=== PATIENT | female | born 1960 | race Two or more races ===

== ENCOUNTER → 2020-05-03 19:53 | Outpatient (REF) | payer OTHER, SELFPAY | LOC: HO.SL 19:53 | PROVIDERS: PCP Internal Medicine; Visit Provider Internal Medicine | DX: G47.33 Obstructive sleep apnea (adult) (pediatric) (principal) | CPT/HCPCS: 95811 ==

== ENCOUNTER → 2020-05-08 08:21 | Outpatient (REF) | payer OTHER, SELFPAY ==
--- NOTE | 2020-05-08 | NM_ITS ---
Exercise Myocardial perfusion study Indication: Calcification risk factors to evaluate for myocardial ischemia Technique: The patient was brought in for an exercise perfusion study on 05/08/2020. Patient performed exercise as per [facility] protocol and was injected 25 mCi of sestamibi was given intravenously one target HR was achieved. Images were obtained using the SPECT gamma camera interlaced with the gating device. Images were obtained in supine position. Resting perfusion study was performed on 05/11/2020. Patient was administered 25 mCi of sestamibi intravenously at rest. Images were then obtained in supine position. Images obtained with and without CT attenuation. Total DLP 73 MGY-CM. Images were processed with the software and compared side to side in short axis, horizontal long axis and vertical long axis views. Findings: The stress perfusion study showed non attenuated images show minimally reduced uptake in the apex of the LV myocardium. Attenuation corrected images show mildly reduced uptake in the apex of the LV myocardium. The gated study shows normal LV systolic function with calculated LVEF of 74%. LV cavity is normal in size. The gated study shows normal systolic wall thickening and contraction of all segments. There is no transient ischemic dilation. Resting study shows no change in perfusion study to stress perfusion study. Gating at rest reveals normal systolic wall motion with ejection fraction at 66%. The findings are consistent with normal myocardial perfusion. NM/NM ronan perf SPECT rest & str Impression: 1. Normal myocardial perfusion 2. Gated LVEF is 66% 3. Transient ischemic dilatation not present Stress EKG is negative for ischemia
--- NOTE | 2020-05-08 08:00 | CA_ITS ---
Acquisition Time: 2020-05-08 08:32:30 Total Exercise Time: 00:07:16 Test Indications: PALPITATIONS Medications: SEE CHART Protocol: RAUL Max HR: 173 BPM 108% of Pred: 159 BPM Max BP: 162/092 mmHG Max Work Load: 8.9 METS Exercise nuclear stress test using Raul protocol, total of 7 min 16 sec. METS. 8.9. Tolerated well, denies any anginal sx. EKG with occasional PVC's in recovery no ischemic changes seen. Nuclear images to follow. Normotensive response to exercise. Test reviewed with Dr. Martinez Referred By: Mikael Campbell Overread By: Smita Trinidad
== END ==
LOC: HO.CARD 08:21
PROVIDERS: Visit Provider Internal Medicine Cardiovascular Disease
DX: R00.2 Palpitations (principal)
CPT/HCPCS: 78452; 93017; A9500

== ENCOUNTER 2020-05-20 10:58 | Outpatient (REF) | payer OTHER, SELFPAY ==
--- NOTE | 2020-05-20 11:02 | MM_ITS ---
EXAMINATION: MM SCREENING DIGITAL BREAST TOMOSYNTHESIS, BILATERAL CLINICAL INFORMATION: Screening. Asymptomatic. The lifetime risk of breast cancer based on the Tyrer-Cuzick Model is 6%. COMPARISON: Mammography: 05/08/2018, outside exam 01/17/2008 ([facility]). TECHNIQUE: Digital breast tomosynthesis is performed in both the craniocaudal and mediolateral oblique views along with computer-aided detection (CAD). Synthesized 2D images are generated from the tomosynthesis. FINDINGS: There are scattered areas of fibroglandular density (ACR BI-RADS breast composition Category b). There are no significant masses, abnormal calcifications, or other abnormalities. The axilla and skin contours are unremarkable. MM/MM tomosynthesis screening BI IMPRESSION: No mammographic evidence of malignancy. ASSESSMENT: BI-RADS 1: Negative RECOMMENDATION: Routine annual mammography screening. This patient's information was entered into a reminder system with a target due date for their next mammogram.
== END 2020-05-20 10:59 | disposition home or self-care (01) ==
LOC: HO.MAMMO 10:58
PROVIDERS: PCP Internal Medicine; Visit Provider Internal Medicine
DX: Z12.31 Encounter for screening mammogram for malignant neoplasm of breast (principal)
CPT/HCPCS: 77063; 77067

== ENCOUNTER → 2020-06-10 08:57 | Outpatient (BNVA) | payer OTHER, SELFPAY | PROVIDERS: PCP Internal Medicine; Referring Provider Internal Medicine; Visit Provider Surgery | DX: K43.2 Incisional hernia without obstruction or gangrene (principal) | CPT/HCPCS: 99202 ==

== ENCOUNTER 2020-07-21 08:50 | Outpatient (REF) | payer OTHER, SELFPAY ==
--- NOTE | 2020-07-21 08:52 | CT_ITS ---
EXAMINATION: CT ABDOMEN AND PELVIS WITHOUT CONTRAST CLINICAL INFORMATION: Incisional hernia without obstruction or gangrene. COMPARISON: None TECHNIQUE: Multidetector volumetric imaging was performed from the superior aspect of the liver through the pubic symphysis. Sagittal and coronal reformatted images were obtained on the technologist's workstation. This CT examination was performed using dose optimization techniques as appropriate, variously including the following: *Automated exposure control *Adjustment of mA and/or kV according to patient size (this includes techniques or standardized protocols for targeted exams where dose is matched to indication/reason for exam; i.e. extremities or head) *Use of iterative reconstruction technique DLP: 378 mGy-cm FINDINGS: LUNG BASES: There is a punctate 2 mm nodule right lower lobe axial image 10/14. LIVER, GALLBLADDER, AND BILIARY TREE: The liver is normal in size, shape, and attenuation. No focal hepatic lesion or biliary ductal dilatation is present. The gallbladder is unremarkable with no evidence of radiopaque gallstones, gallbladder wall thickening, or obvious pericholecystic inflammatory changes. PANCREAS: Unremarkable. SPLEEN: Unremarkable. ADRENAL GLANDS: Unremarkable. KIDNEYS AND URETERS: The kidneys are normal in size, shape, and attenuation. There is a 7 mm radiopaque calculi upper pole calyx left kidney. No additional radiopaque calculi seen. There is no caliectasis or hydronephrosis. BLADDER: Unremarkable. GASTROINTESTINAL TRACT: There is scattered stool and gas seen throughout the colon without any significant distention. The small bowel loops are normal caliber. There is no free air or free fluid. No inflammatory process seen in the abdomen or pelvis. There are surgical alessandro in the left pelvis from previous intervention. ABDOMINAL WALL: Thickened soft tissue is seen within the umbilicus without any visible hernia. No fat stranding seen. LYMPH NODES: Normal. VASCULAR: Unremarkable. PELVIC VISCERA: No free air or free fluid seen. The uterus is not visualized likely surgically removed or atrophic. A few phleboliths are seen in the right pelvis. OSSEOUS STRUCTURES: Mild degenerative changes L4-L5 and L5-S1 disc levels. No lytic or sclerotic process. CT/CT abdomen pelvis wo con IMPRESSION: Nonobstructive upper pole left renal calculi. No hydronephrosis seen. Nonspecific mild thickening of the umbilical soft tissues but no evidence of abdominal wall hernia. Mild constipation.
== END 2020-07-21 08:51 | disposition home or self-care (01) ==
LOC: HO.CT 08:50
PROVIDERS: Visit Provider Surgery
DX: K43.2 Incisional hernia without obstruction or gangrene (principal)
CPT/HCPCS: 74176

== ENCOUNTER → 2020-07-28 10:14 | Outpatient (BNVA) | payer OTHER, SELFPAY | PROVIDERS: PCP Internal Medicine; Visit Provider Surgery | DX: K43.2 Incisional hernia without obstruction or gangrene (principal) | CPT/HCPCS: 99212 ==

== ENCOUNTER → 2021-11-12 09:32 | Outpatient (BNVA) | payer OTHER, SELFPAY | PROVIDERS: PCP Internal Medicine; Referring Provider Internal Medicine; Visit Provider Surgery | DX: K43.2 Incisional hernia without obstruction or gangrene (principal); K57.92 Diverticulitis of intestine, part unspecified, without perforation or abscess without bleeding | CPT/HCPCS: 99212 ==

== ENCOUNTER 2021-12-22 07:01 | Outpatient (REF) | payer OTHER, SELFPAY ==
--- NOTE | ~2021-12-22 | CT_ITS ---
EXAMINATION: CT ABDOMEN AND PELVIS WITHOUT CONTRAST CLINICAL INFORMATION: Incisional hernia COMPARISON: Previous CT of the abdomen and pelvis July 2020 TECHNIQUE: Multidetector volumetric imaging was performed from the superior aspect of the liver through the pubic symphysis. Sagittal and coronal reformatted images were obtained on the technologist's workstation. This CT examination was performed using dose optimization techniques as appropriate, variously including the following: *Automated exposure control *Adjustment of mA and/or kV according to patient size (this includes techniques or standardized protocols for targeted exams where dose is matched to indication/reason for exam; i.e. extremities or head) *Use of iterative reconstruction technique DLP: 372 mGy-cm FINDINGS: LUNG BASES: The visualized lung bases are unremarkable. LIVER, GALLBLADDER, AND BILIARY TREE: The liver is normal in size, shape, and attenuation. No focal hepatic lesion or biliary ductal dilatation is present. The gallbladder is unremarkable with no evidence of radiopaque gallstones, gallbladder wall thickening, or obvious pericholecystic inflammatory changes. PANCREAS: Unremarkable. SPLEEN: Unremarkable. ADRENAL GLANDS: Unremarkable. KIDNEYS AND URETERS: There is mild fullness of the right renal collecting system. This is similar to previous exam. The kidneys are otherwise normal. The previously identified left upper pole renal stone July 2020 exam is no longer seen. BLADDER: Unremarkable. GASTROINTESTINAL TRACT: There is stool throughout the colon suggestive of constipation. Small and large bowel is otherwise unremarkable. The appendix is not seen. The stomach is unremarkable. ABDOMINAL WALL: No significant hernia is appreciated. LYMPH NODES: Normal. VASCULAR: Mild atherosclerotic disease. PELVIC VISCERA: Uterus appears to have been removed. There are surgical clips in the left lateral pelvis. No pelvic mass. OSSEOUS STRUCTURES: Unremarkable. CT/CT abdomen pelvis wo con IMPRESSION: No hernia seen. Constipation. Fleischner guidelines were followed.
[2021-12-22] MEDS: Barium Sulfate Oral (Mocha) 450 ML ORAL.SUSP 900 ML PO (09:49)
== END 2021-12-22 07:02 | disposition home or self-care (01) ==
LOC: HO.CT 07:01
PROVIDERS: PCP Internal Medicine; Visit Provider Surgery
DX: K43.2 Incisional hernia without obstruction or gangrene (principal); K57.92 Diverticulitis of intestine, part unspecified, without perforation or abscess without bleeding
CPT/HCPCS: 74176

== ENCOUNTER → 2021-12-28 11:11 | Outpatient (BNVA) | payer OTHER, SELFPAY | PROVIDERS: PCP Internal Medicine; Visit Provider Surgery | DX: K43.2 Incisional hernia without obstruction or gangrene (principal); K57.92 Diverticulitis of intestine, part unspecified, without perforation or abscess without bleeding | CPT/HCPCS: 99212 ==

== ENCOUNTER 2022-06-07 08:17 | Outpatient (REF) | payer OTHER, SELFPAY ==
--- NOTE | ~2022-06-07 | MM_ITS ---
EXAMINATION: MM SCREENING DIGITAL BREAST TOMOSYNTHESIS, BILATERAL CLINICAL INFORMATION: Screening. Asymptomatic. The lifetime risk of breast cancer based on the Tyrer-Cuzick Model is 5%. COMPARISON: Mammography: 05/20/2020, 05/08/2018; outside exam 01/17/2008 ([facility]) TECHNIQUE: Digital breast tomosynthesis is performed in both the craniocaudal and mediolateral oblique views along with computer-aided detection (CAD). Synthesized 2D images are generated from the tomosynthesis. FINDINGS: There are scattered areas of fibroglandular density (ACR BI-RADS breast composition Category b). There are no significant masses, abnormal calcifications, or other abnormalities. Parenchymal pattern is similar to prior studies. There is no developing density or architectural abnormality. The axilla and skin contours are unremarkable. No significant changes. MM/MM tomosynthesis screening BI IMPRESSION: No mammographic evidence of malignancy. ASSESSMENT: BI-RADS 1: Negative RECOMMENDATION: Routine annual mammography screening. This patient's information was entered into a reminder system with a target due date for their next mammogram.
== END 2022-06-07 08:18 | disposition home or self-care (01) ==
LOC: HO.MAMMO 08:17
PROVIDERS: PCP Internal Medicine; Visit Provider Internal Medicine
DX: Z12.31 Encounter for screening mammogram for malignant neoplasm of breast (principal)
CPT/HCPCS: 77063; 77067

== ENCOUNTER 2023-04-06 09:26 | Outpatient (REF) | payer OTHER, SELFPAY ==
[2023-04-06 11:54] LABS: Cholesterol 291 mg/dL (<200); HDL Cholesterol 59 mg/dL (>40); LDL Cholesterol Calculated 189 mg/dL (<100); Triglycerides 219 mg/dL (<150)
[2023-04-06 11:57] LABS: Alanine Aminotransferase 11 U/L (0-31); Albumin Level 4.4 g/dL (3.5-5.0); Alkaline Phosphatase 84 U/L (39-117); Anion Gap 16 (12-20); Aspartate Amino Transferase 12 U/L (5-31); Bilirubin Total 0.7 mg/dL (0.0-1.0); Blood Urea Nitrogen 17 mg/dL (9-16); Calcium 10.5 mg/dL (8.4-10.2); Carbon Dioxide 25 mmol/L (22-29); Chloride 103 mmol/L (96-108); Estimated Glomerular Filt Rate > 60; Glucose Random 276 mg/dL (60-115); Potassium 4.2 mmol/L (3.3-5.1); Sodium 140 mmol/L (135-145)
[2023-04-06 12:14] LABS: Creatinine Urine 76.69 mg/dL; Microalbum/Creatinine Ratio Ur 20.8 ug/mg cr (<30); TSH reflex Free T4 0.76 uIU/mL (0.32-4.0); Vitamin D 25-OH Total 53.7 ng/mL (>30)
[2023-04-06 13:47] LABS: Reflex LDLD? No
== END 2023-04-06 09:27 | disposition home or self-care (01) ==
LOC: HO.HHCL 09:26
PROVIDERS: Visit Provider Family Medicine
DX: R30.9 Painful micturition, unspecified (principal); E11.9 Type 2 diabetes mellitus without complications; R25.1 Tremor, unspecified; I10 Essential (primary) hypertension; E55.9 Vitamin D deficiency, unspecified
CPT/HCPCS: 36415; 80053; 80061; 82043; 82306; 82570; 84443; 87086; 87088; 87186

== ENCOUNTER 2023-06-07 07:54 | Outpatient (REF) | payer OTHER, SELFPAY ==
--- NOTE | ~2023-06-07 | CT_ITS ---
EXAMINATION: CT ABDOMEN AND PELVIS WITHOUT CONTRAST CLINICAL INFORMATION: Gross hematuria. COMPARISON: CT abdomen and pelvis 12/22/2021. TECHNIQUE: Multidetector volumetric imaging was performed from the superior aspect of the liver through the pubic symphysis. Sagittal and coronal reformatted images were obtained on the technologist's workstation. This CT examination was performed using dose optimization techniques as appropriate, variously including the following: *Automated exposure control *Adjustment of mA and/or kV according to patient size (this includes techniques or standardized protocols for targeted exams where dose is matched to indication/reason for exam; i.e. extremities or head) *Use of iterative reconstruction technique DLP: 330 mGy-cm FINDINGS: LUNG BASES: Mosaic attenuation at the lung bases suggesting reactive airways disease. LAD coronary calcium. LIVER, GALLBLADDER, AND BILIARY TREE: The liver is normal in size, shape, and attenuation. No focal hepatic lesion or biliary ductal dilatation is present. The gallbladder is unremarkable with no evidence of radiopaque gallstones, gallbladder wall thickening, or obvious pericholecystic inflammatory changes. PANCREAS: No discrete mass or ductal dilatation. SPLEEN: Unremarkable. ADRENAL GLANDS: Unremarkable. KIDNEYS AND URETERS: The kidneys are normal in size, shape, and attenuation. No hydronephrosis, hydroureter, or calculi seen. No perinephric stranding. BLADDER: Unremarkable. GASTROINTESTINAL TRACT: Small hiatal hernia. Small bowel and large bowel are normal in caliber the appendix is not discretely seen ABDOMINAL WALL: No significant hernia is appreciated. LYMPH NODES: No adenopathy. VASCULAR: Mild aortoiliac atherosclerosis. No aneurysm. PELVIC VISCERA: Unremarkable. OSSEOUS STRUCTURES: Degenerative changes in the spine. CT/CT abdomen pelvis wo IV con IMPRESSION: No explanation for hematuria. No nephrolithiasis or hydroureteronephrosis. Fleischner guidelines were followed.
== END 2023-06-07 07:55 | disposition home or self-care (01) ==
LOC: HO.CT 07:54
PROVIDERS: PCP Internal Medicine; Visit Provider Family Medicine
DX: R31.0 Gross hematuria (principal)
CPT/HCPCS: 74176

== ENCOUNTER 2023-06-13 08:07 | Outpatient (REF) | payer OTHER, SELFPAY | END 2023-06-13 08:08 | disposition home or self-care (01) | LOC: HO.MAMMO 08:07 | PROVIDERS: PCP Internal Medicine; Visit Provider Internal Medicine | DX: Z12.31 Encounter for screening mammogram for malignant neoplasm of breast (principal) | CPT/HCPCS: 77063; 77067 ==

== ENCOUNTER → 2023-06-13 08:15 | Outpatient (BNV) | payer OTHER, SELFPAY | PROVIDERS: PCP Internal Medicine; Visit Provider Radiology Diagnostic Radiology | DX: Z12.31 Encounter for screening mammogram for malignant neoplasm of breast (principal) | CPT/HCPCS: 77063; 77067 ==

== ENCOUNTER 2023-09-12 13:40 | Outpatient (REF) | payer OTHER, SELFPAY ==
--- NOTE | ~2023-09-12 | US_ITS ---
EXAMINATION: US THYROID CLINICAL INFORMATION: Follow-up left thyroid nodule, left lymphadenopathy. COMPARISON: None available. TECHNIQUE: Linear transducer grayscale and color Doppler examination with attention to the region of the thyroid. FINDINGS: SIZE: Measurements of the thyroid lobes and nodules are given in sagittal, anteroposterior and transverse dimensions respectively. Right Thyroid Lobe: 4.4 x 2.4 x 1.9 cm, volume 10.4 mL. Parenchyma: The gland echotexture is homogeneous. Thyroid vascularity is normal. Left Thyroid Lobe: 4.9 x 1.4 x 1.3 cm, volume 4.9 mL. Parenchyma: The gland echotexture is homogeneous. Thyroid vascularity is normal. Isthmus: 0.4 cm in maximum AP dimension. Estimated total number of nodules greater than or equal to 1 cm: 0. Clinic Cma nodules are described as follows: 1. Location: Left superior. Size: 0.6 x 0.4 x 0.5 cm, volume 0.06 mL. Nodule characteristics: Composition: Cystic(0). ACR TI-RADS total points: 0 ACR TI-RADS category: 1 NODES: In the right cervical region, a 1.5 x 0.6 x 1.1 cm reniform lymph node is seen, with normal architectural features. There are further shotty, nonpathologically enlarged bilateral cervical lymph nodes. US/US thyroid IMPRESSION: 1. A small superior left thyroid lobe nodule is seen. No specific imaging follow-up is recommended. 2. There is a mild asymmetric goiter, right lobe greater than left. 3. A borderline enlarged right cervical lymph node is seen, as detailed. This is nonspecific and should be managed on a clinical basis. There are further shotty, nonpathologically enlarged bilateral cervical lymph nodes. ACR TI-RADS RECOMMENDATION REFERENCE: Ultrasound-guided fine-needle aspiration, followup ultrasound, no further follow up. * TR1 (0 point) and TR2 (2 points): No FNA or follow up. * TR3 (3 points): FNA if more than or equal to 2.5 cm in maximum dimension, followup ultrasound in 1, 3 and 5 years if 1.5 to 2.4 cm in maximum dimension. * TR4 (4-6 points): FNA if more than or equal to 1.5 cm in maximum dimension, followup ultrasound in 1, 2, 3 and 5 years if 1 to 1.4 cm in maximum dimension. * TR5 (more than or equal to 7 points): FNA if more than or equal to 1 cm in maximum dimension, followup ultrasound every year for 5 years if 0.5 to 0.9 cm in maximum dimension. * TR3, TR4 or TR5 nodules that are below the size threshold for followup receive no follow up.
== END 2023-09-12 13:41 | disposition home or self-care (01) ==
LOC: HO.US 13:40
PROVIDERS: PCP Internal Medicine; Visit Provider Internal Medicine
DX: E04.1 Nontoxic single thyroid nodule (principal)
CPT/HCPCS: 76536

== ENCOUNTER 2023-12-22 08:42 | Outpatient (REF) | payer OTHER, SELFPAY ==
[2023-12-24 10:05] LABS: Triiodothyronine T3 Free 3.1 pg/mL (2.3-4.2); Triiodothyronine T3 Total 96 ng/dL (76-181)
[2023-12-25 18:39] LABS: Thyroglobulin Antibodies <1 IU/mL (< or = 1)
[2023-12-29 11:32] LABS: T4 Thyroxine 7.1 ug/dL (4.5-12.0)
== END 2023-12-22 08:43 | disposition home or self-care (01) ==
LOC: HO.HHCL 08:42
PROVIDERS: Visit Provider Internal Medicine
DX: E04.1 Nontoxic single thyroid nodule (principal); N30.01 Acute cystitis with hematuria
CPT/HCPCS: 36415; 84436; 84439; 84480; 84481; 86800; 87086

== ENCOUNTER 2024-01-08 08:07 | Outpatient (REF) | payer OTHER, SELFPAY ==
[2024-01-08 12:22] LABS: Cholesterol 212 mg/dL (<200); HDL Cholesterol 52 mg/dL (>40); LDL Cholesterol Calculated 139 mg/dL (<100); Triglycerides 107 mg/dL (<150)
[2024-01-08 12:45] LABS: Free T4 (Free Thyroxine) 0.89 ng/dL (0.71-1.85)
[2024-01-08 13:32] LABS: T4 Thyroxine 6.8 ug/dL (4.5-12.0)
[2024-01-08 14:09] LABS: Reflex LDLD? No
[2024-01-09 22:37] LABS: Thyroid Peroxidase Antibodies <1 IU/mL (<9)
== END 2024-01-08 08:08 | disposition home or self-care (01) ==
LOC: HO.HHCL 08:07
PROVIDERS: Visit Provider Internal Medicine
DX: E04.1 Nontoxic single thyroid nodule (principal); E11.9 Type 2 diabetes mellitus without complications; I10 Essential (primary) hypertension
CPT/HCPCS: 36415; 80061; 84436; 84439; 86376

== ENCOUNTER 2024-08-29 09:09 | Outpatient (REF) | payer OTHER, SELFPAY ==
--- OUTSIDE RECORDS SUMMARY | 2024-08-29 09:49 | XMS_ITS | Encounter Summary ---
Author Organization [employer] Address [address] [place] [address] [address] [place] [address] Care Team Providers Care Dcs Engineer Name Role Phone Elizabeth Alexis MD Primary Care Provider + Reason for Visit * Reason Comments Med Refill Encounter Details Date Type Department Care Team ([facility] Contact Info) Description 01/01/2023 Refill [facility] [address] [place] [address] [phone] Eliazbeth Alexis MD [address] [place], [place] [phone] Type 2 diabetes mellitus without complication, with long-term current use of insulin ([facility]) Social History Tobacco Use Types Packs/Day Years Used Date Smoking Tobacco: Never Passive Smoke Exposure: Never Smokeless Tobacco: Never Alcohol Use Standard Drinks/Week Comments Yes 0 (1 standard drink = 0.6 oz pur e alcohol) casual Depression Answer Date Recorded Patient Health Questionnaire-2 Score 0 09/29/2022 Comments No Sex and Gender Information Value Date Recorded Sex Assigned at Female 05/09/2022 10:24 AM EDT Legal Sex Female 10:24 AM EDT Gender Identity Female 05/09/2022 10:24 AM EDT Sexual Orientation Straight 05/09/2022 10 :24 AM EDT documented as of this encounter Plan of Treatment Upcoming Encounters Date Type Department Care Team ([facility] Contact Info) Description 10/24/2024 9:00 AM EDT Office Visit [facility] [address] [place] [phone] Elizabeth Alexis MD [address] [place], [place] [phone] documented as of this encounter Visit Diagnoses Diagnosis Type 2 diabetes mellitus without complication, with long-term current use of insulin ([facility]) documented in this encounter Care Teams Dcs Engineer Relationship Specialty Start Date End Date Elizabeth Alexis MD [address] [place] [address] PCP - General Family Medicine 04/26/16 documented as of this encounter
--- OUTSIDE RECORDS SUMMARY | 2024-08-29 09:49 | XMS_ITS | Clinical Summary ---
Author Organization [facility] Address [address] [place] [address] Care Team Providers Care Digital Media Strategist Name Role Phone Unavailable Primary Care Provider Unavailabl e Source Comments PLEASE NOTE, if this patient is a minor, it may be UNLAWFUL to discuss sensitive information that is contained in these records (such as FAMILY PLANNING, MENTAL HEALTH or SUBSTANCE ABUSE) with the minor patient's parent or other person without the patient's specific authorization.[facility] Social History Tobacco Use Types Packs/Day Years Used Date Smoking Tobacco: Never Assessed Social Connections Answer Date Recorded Connectedness 0 03/22/2024 Financial Resource Strain Answer Date R ecorded Financial Resource Strain 0 2021 Stress Answer Date Recorded Stress 0 02/01/2022 Physical Activity Answer Date Recorded Physical Activity 0 02/01/2022 Food Insecurity Answer Date Recorded Food 0 04/04/2024 Transportation Needs Answer Date Record ed Transportation 0 02/01/2022 Housing Stability Answer Date Recorded Housing 0 02/01/2022 Safety and Environment Answer Date Rock rded Safety 0 02/01/2022 Utilities Answer Date Recorded Utilities 0 02/01/2022 Employment Answer Date Recorded Stress 0 03/22/2024 Comments Unknown Sex and Gender Information Value Date Recorded Sex Assigned at Not on file Legal Sex Female 10:11 AM PDT Gender Identity Not on file Sexual Orientation Not on file Plan of Treatment Health Maintenance Due Date Last Done Comments Diabetes Screening 1959 Hepatitis C Screening 1959 Lipid Screening 1959 Tobacco Screening 1959 HIV Screening 1974 Hypertension Screening (#1) 1977 Medicare Annual Wellness Visit 1977 Breast Cancer Screening (Mammogram) 1999 CT Colonography 02/05/2004 Colonoscopy 02/05/2004 Colorectal Cancer Screening 02/05/2004 FIT/gFOBT 02/05/2004 Fecal DNA 02/05/2004 Flexible Sigmoidoscopy 02/05/2004 Imm-Pneumococcal 65+ (1 of 1 - PCV) 2009 Imm-Zoster, Recombinant (1 of 2) 2009 Imm-DTaP/Tdap/Td (2 - Td or Tdap) 03/19/2018 008 Bone Density Screening 02/05/2024 Falls Prevention 02/05/2024 [id number] (3 - 2023- season) 2024 021, 10/12/2020 Imm-Influenza (#1) 2024 06/02/2021, 0 07/27/2016, 03/26/2013, Additional history exists Alcohol and Drug Screen 07/10/2024 Depression Annual Screen 07/10/2024 Insurance [facility] Member Subscriber Plan / Payer (Ef fective 2022-Present) Name:Tawnya Velazquez Relation to Subscriber:Self Name:Tawnya Velazquez Payer ID:[id number] Group ID:Not on file Type:Indemnity Address: [facility] [address] [id number]
--- OUTSIDE RECORDS SUMMARY | 2024-08-29 09:49 | XMS_ITS | Encounter Summary ---
Author Organization [employer] Address [address] [place] [address] [address] [place] [address] Care Team Providers Care Casework Manager Name Role Phone Elizabeth Alexis MD Primary Care Provider + Encounter Details Date Type Department Care Team ([facility] Contact Info) Description 10/19/2022 Orders Only [facility] [address] [place] [address] [phone] Elizabeth Alexis MD [address] [place] [address] [phone] Essential hypertension Social History Tobacco Use Types Packs/Day Years Used Date Smoking Tobacco: Never Passive Smoke Exposure: Never Smokeless Tobacco: Never Alcohol Use Standard Drinks/Week Comments Not Currently 0 (1 standard drink = 0.6 oz pur e alcohol) Depression Answer Date Recorded Patient Health Questionnaire-2 Score 0 09/29/2022 Comments No Sex and Gender Information Value Date Recorded Sex Assigned at Female 05/09/2022 10:24 AM EDT Legal Sex Female 10:24 AM EDT Gender Identity Female 05/09/2022 10:24 AM EDT Sexual Orientation Straight 05/09/2022 10 :24 AM EDT COVID-19 Exposure Response Date Recorded In the last 10 days, have yo u been in contact with someone who was confirmed or suspected to have Coronavirus/COVID-19? No / Unsure 09/29/2022 9:08 AM EDT documented as of this encounter Plan of Treatment Upcoming Encounters Date Type Department Care Team ([facility] Contact Info) Description 10/24/2024 9:00 AM EDT Office Visit [facility] [address] [place] [address] [phone] Elizabeth Alexis MD [address] [place] [address] documented as of this encounter Visit Diagnoses Diagnosis Essential hypertension Unspecified essential hypertension documented in this encounter Care Teams Casework Manager Relationship Specialty Start Date End Date Elizabeth Alexis MD [address] [place] [address] PCP - General Family Medicine 04/26/16 documented as of this encounter
--- OUTSIDE RECORDS SUMMARY | 2024-08-29 09:49 | XMS_ITS | Encounter Summary ---
Author Organization [employer] Address [address] [place] [address] [address] [place] [address] Care Team Providers Care Memorial Adviser Name Role Phone Elizabeth Alexis MD Primary Care Provider + Encounter Details Date Type Department Care Team (Late Contact Info) Description 12/28/2022 Abstract [facility] [address] [place], [place] [phone] Elizabeth Alexis MD [address] [place], [place] [phone] Social History Tobacco Use Types Packs/Day Years [...] suspected to have Coronavirus/COVID-19? No / Unsure 12/01/2022 10:39 AM EDT documented as of this encounter Plan of Treatment Upcoming Encounters Date Type Department Care Team ([facility] Contact Info) Description 10/24/2024 9:00 AM EDT Office Visit [facility] [address] [place], [place] [phone] Elizabeth Alexis MD [address] [place] [address] documented as of this encounter Procedures Procedure Name Priority Date/Time Associated Diagnosis Comments COLONOSCOPY Routine 06/07/2017 1:05 PM EST documented in this encounter Results * Colonoscopy (06/07/2017 1:05 PM EST) Colonoscopy Normal Normal Narrative Kajal Esparza - 06/07/2017 1:05 PM EST Recommended 10 years follow up us Historical Provider Proviation MAINTENANCE Edited Result - Final documented in this encounter Visit Diagnoses Not on filedocumented in this encounter Care Teams Memorial Adviser Relationship Specialty Start Date End Date Elizabeth Alexis MD [address] [place] [address] PCP - General Family Medicine 04/26/16 documented as of this encounter
--- OUTSIDE RECORDS SUMMARY | 2024-08-29 09:49 | XMS_ITS | Encounter Summary ---
Author Organization [employer] Address [address] [place] [address] [address] [place] [address] Care Team Providers Care Manufacturing Worker Name Role Phone Elizabeth Alexis MD Primary Care Provider + Reason for Visit * Reason Comments Med Refill Encounter Details Date Type Department Care Team ([facility] Contact Info) Description 03/14/2023 Refill [facility] [address] [place] [address] [phone] Elizabeth Alexis MD [address] [place], [place] [phone] Type 2 diabetes mellitus without complication, with long-term current use of insulin ([facility]) Social History Tobacco Use Types Packs/Day Years [...] Upcoming Encounters Date Type Department Care Team ([facility] Contact Info) Description 10/24/2024 9:00 AM EDT Office Visit [facility] [address] [place] [phone] Elizabeth Alexis MD [address] [place], [place] [phone] documented as of this encounter Visit Diagnoses Diagnosis Type 2 diabetes mellitus without complication, with long-term current use of insulin ([facility]) documented in this encounter Care Teams Manufacturing Worker Relationship Specialty Start Date End Date Elizabeth Aelxis MD [address] [place] [address] PCP - General Family Medicine 04/26/16 documented as of this encounter
--- OUTSIDE RECORDS SUMMARY | 2024-08-29 09:49 | XMS_ITS | Encounter Summary ---
Author Organization [employer] Address [address] [place] [address] [address] [place] [address] Care Team Providers Care Printing Press Machinist Name Role Phone Elizabeth Alexis MD Primary Care Provider + Encounter Details Date Type Department Care Team (Late Contact Info) Description 12/28/2022 Abstract [facility] MEDICINE [address] [place], [place] [phone] Elizabeth Alexis MD [address] [place], [place] [phone] Social History Tobacco Use Types Packs/Day Years [...] Upcoming Encounters Date Type Department Care Team ([facility] Contact Info) Description 10/24/2024 9:00 AM EDT Office Visit [facility] MEDICINE [address] [place], [place] [phone] Elizabeth Alexis MD [address] [place] [address] documented as of this encounter Visit Diagnoses Not on filedocumented in this encounter Care Teams Printing Press Machinist Relationship Specialty Start Date End Date Elizabeth Alexis MD [address] [place] [phone] PCP - General Family Medicine 04/26/16 documented as of this encounter
--- OUTSIDE RECORDS SUMMARY | 2024-08-29 09:49 | XMS_ITS | Encounter Summary ---
Author Organization [employer] Address [address] [facility] [address]t [place] [address] Care Team Providers Care Employer Relations Representative Name Role Phone Elizabeth Alexis MD Primary Care Provider + Encounter Details Date Type Department Care Team (Late st Contact Info) Description 08/02/2023 Abstract [facility] MEDICINE [address] [place], [place] [phone] Elizabeth Alexis MD [address] [place], [place] [phone] Social History Tobacco Use Types Packs/Day Years Used Date Smoking Tobacco: Never Passive Smoke Exposure: Never Smokeless Tobacco: Never Alcohol Use Standard Drinks/Week Comments Yes 0 (1 standard drink = 0.6 oz pur e alcohol) social Housing Stability Answer Date Recorded What is your housing situation today? I have tyshawngagan guy 04/24/[address] you li ve. Do you have problems with any of the following? None of the above 04/24/2023 Food Insecurity Answer Date Recorded Within the past 12 months, y ou worried that your food would run out before you got money to buy more: Never True 04/24/2023 Within the past 12 months,th e food you bought just didn't last and you didn't have enough money to get more: Never True Transportation Answer Date Recorded In the past 12 months, has l ack of transportation kept you from medical appts, meetings, work or from getting things needed for daily living? No 04/24/2023 Utilities Answer Date Recorded In the past 12 months, has t he electric, gas, oil or water company threatened to shut off services in your home? No 04/24/2023 Depression Answer Date Recorded Patient Health Questionnaire-2 Score 0 09/29/2022 Comments No Sex and Gender Information Value Date Recorded Sex Assigned at Female 05/09/2022 10:24 AM EDT Legal Sex Female 10:24 AM EDT Gender Identity Female 05/09/2022 10:24 AM EDT Sexual Orientation Straight 05/09/2022 10 :24 AM EDT documented as of this encounter Plan of Treatment Upcoming Encounters Date Type Department Care Team (Late st Contact Info) Description 10/24/2024 9:00 AM EDT Office Visit [facility] MEDICINE [address] [place] [address] Elizabeth Alexis MD [address] [place] [address] documented as of this encounter Visit Diagnoses Not on filedocumented in this encounter Care Teams Employer Relations Representative Relationship Specialty Start Date End Date Elizabeth Alexis MD [address] [place], [place] [phone] PCP - General Family Medicine 04/26/16 documented as of this encounter
--- OUTSIDE RECORDS SUMMARY | 2024-08-29 09:49 | XMS_ITS | Encounter Summary ---
Author Organization [employer] Address [address] [facility] 7t [place] [address] Care Team Providers Care Ton Container Shipper Name Role Phone Elizabeth Alexis MD Primary Care Provider + Reason for Visit * Reason Onset Date Comments paperwork 09/07/2022 Encounter Details Date Type Department Care Team ([facility] st Contact Info) Description 09/07/2022 Telephone [facility] MEDICINE [address] [place], [place] [phone] Elizabeth Alexis MD [address] [place], [place] [phone] paperwork Social History Tobacco Use Types Packs/Day Years Used Date Smoking Tobacco: Never Assessed Alcohol Use Standard Drinks/Week Comments Not Currently 0 (1 standard drink = 0.6 oz pur e alcohol) Comments No Sex and Gender Information Value Date Recorded Sex Assigned at Female 05/09/2022 10:24 AM EDT Legal Sex Female 10:24 AM EDT Gender Identity Female 05/09/2022 10:24 AM EDT Sexual Orientation Straight 05/09/2022 10 :24 AM EDT documented as of this encounter Miscellaneous Notes * Telephone Encounter - Kiel Caicedo - 09/07/2022 1:17 PM EST Tc from pt stating that she is having surgery on her eyes. Pt has already been seen, but facility in where pt is getting surgery are requiring a phone call from provider to speak and are require notes. Pt was a little confused, parts data writer could not take in all the information needed. Please contact Facility at [phone] extension [phone] [address] documented in this encounter Plan of Treatment Upcoming Encounters Date Type Department Care Team (Late st Contact Info) Description 10/24/2024 9:00 AM EDT Office Visit [facility] MEDICINE [address] [place] [phone] Elizabeth Alexis MD [address] [place], [place] [phone] documented as of this encounter Visit Diagnoses Not on filedocumented in this encounter Care Teams Ton Container Shipper Relationship Specialty Start Date End Date Elizabeth Alexis MD [address] [place] [phone] PCP - General Family Medicine 04/26/16 documented as of this encounter
--- OUTSIDE RECORDS SUMMARY | 2024-08-29 09:49 | XMS_ITS | Clinical Summary ---
Author Organization [facility] it Address [address] [place] [address] Care Team Providers Care Barrel Rib Matting Machine Operator Name Role Phone Adelaide Farooq MD Primary Care Provider Surgical History Surgery Date Site/Laterality Comments HYSTERECTOMY PROCEDURE: HISTORICAL HYSTERECTOMY SHOULDER SURGERY PROCEDURE: ID UNLISTED PROCEDURE SHOULDER; COMMENT: nayana on the R Medical History Medical History Date Comments DM (diabetes mellitus) ([facility]) DX:DM (diabetes mellitus) ([facility]) Hypercholesteremia DX:Hyperchole steremia Asthma DX:Asthma Unspecified essential hypertension DX:Unspecified essential hypertension Family History Medical History Relation Name Comments Blindness Neg Hx Cataracts Neg Hx Glaucoma Neg Hx Macular degeneration Neg Hx Strabismus Neg Hx Relation Name Status Comments Brother 1 Alive HTN Brother 2 Alive Brother 3 Alive Brother 4 Alive Daughter 1 Alive Daughter 2 Alive Father SD at age 65 Mother Alive DM, HTN, derpre ssion Sister 1 Alive HTN Sister 2 Alive HTN Sister 3 Alive Son Alive Social History Tobacco Use Types Packs/Day Years Used Date Smoking Tobacco: Former Cigarettes Q uit: 07/10/1992 Smokeless Tobacco: Never Alcohol Use Standard Drinks/Week Comments No 0 (1 standard drink = 0.6 oz pur e alcohol) Comments Unknown Sex and Gender Information Value Date Recorded Sex Assigned at Not on file Legal Sex Female 12:15 AM EST Gender Identity Not on file Sexual Orientation Not on file Obstetrics History Plan of Treatment Health Maintenance Due Date Last Done Comments Breast Cancer Screening 1959 Diabetes: Annual GFR (Glomerular Filtration Rate) 1959 Diabetes: Annual Foot Exam 1969 Diabetes: Annual Retina Eye Exam 1969 Pneumococcal Vaccine: 50+ Years (1 of 2 - PCV) 1978 Pneumococcal Vaccine: Pediatrics (0 to 5 Years) and At-Risk Patients (6 to 64 Years) (1 of 2 - PCV) 1978 Zoster Vaccines (1 of 2) 2009 DTaP,Tdap,and Td Vaccines (2 - Td or Tdap) 03/19/2018 03/19/2008 RSV Immunization Patients 60+ Years Old (1 - Risk 60-74 years 1-dose series) 2019 Cholesterol Screening (Lipid Panel) 08/08/2023 Colorectal Cancer Screening: Colonoscopy 08/08/2023 Depression Screening 08/08/2023 Diabetes: Annual Urine Albumin-Creatinine Ratio (uACR) 08/08/2023 Diabetes: Blood Sugar Control Test (HGBA1C) 08/08/2023 Hepatitis C Screening 08/08/2023 Osteoporosis Screening (Bone Density Screening) 08/08/2023 Social Influencers of Health Screening 08/08/2023 Falls Risk Assessment 02/05/2024 COVID-19 Vaccine ( season) 2024 Influenza Vaccine (#1) 2024 3, 04/19/2011, 04/08/2009, Additional history exists HIB Vaccines Aged Out No longer eligi ble based on patient's age to complete this topic HPV Vaccines Aged Out No longer eligi ble based on patient's age to complete this topic Hepatitis A Vaccines Aged Out No long er eligible based on patient's age to complete this topic Hepatitis B Vaccines Aged Out No long er eligible based on patient's age to complete this topic IPV Vaccines Aged Out No longer eligi ble based on patient's age to complete this topic MMR Vaccines Aged Out No longer eligi ble based on patient's age to complete this topic Meningococcal ACWY Vaccine Aged Out N o longer eligible based on patient's age to complete this topic Meningococcal B Vacine Aged Out No lo nger eligible based on patient's age to complete this topic RSV Immunization Patients Under 20 months Aged Out No longer eligible based on patient's age to complete this topic Varicella Vaccines Aged Out No longer eligible based on patient's age to complete this topic Care Teams Barrel Rib Matting Machine Operator Relationship Specialty Start Date End Date Adelaide Farooq MD [address] [place] [address] PCP - General Internal Medicine 04/14/16
--- OUTSIDE RECORDS SUMMARY | 2024-08-29 09:50 | XMS_ITS | Encounter Summary ---
Author Organization [employer] Address [address] [facility] 7t [place] [address] Care Team Providers Care Drapery Counselor Name Role Phone Elizabeth Alexis MD Primary Care Provider + Reason for Visit * Reason Comments Med Refill Encounter Details Date Type Department Care Team ([facility] st Contact Info) Description 05/05/2023 Refill [facility] MEDICINE [address] [place], [place] [phone] Elizabeth Alexis MD [address] [place], [place] [phone] Social History Tobacco Use Types Packs/Day Years Used Date Smoking Tobacco: Never Passive Smoke Exposure: Never Smokeless Tobacco: Never Alcohol Use Standard Drinks/Week Comments Yes 0 (1 standard drink = 0.6 oz pur e alcohol) social Housing Stability Answer Date Recorded What is your housing situation today? I have tyshawn guy 04/24/[address] you [...] Description 10/24/2024 9:00 AM EDT Office Visit [facility] MEDICINE [address] [place] [phone] Elizabeth Alexis MD [address] [place] [address] documented as of this encounter Visit Diagnoses Not on filedocumented in this encounter Care Teams Drapery Counselor Relationship Specialty Start Date End Date Elizabeth Alexis MD [address] [place] [phone] PCP - General Family Medicine 04/26/16 documented as of this encounter
--- OUTSIDE RECORDS SUMMARY | 2024-08-29 09:50 | XMS_ITS | Encounter Summary ---
Author Organization [employer] Address [address] [place] [address] 7t [place] [address] Care Team Providers Care Communications Coordinator Name Role Phone Elizabeth Alexis MD Primary Care Provider + Encounter Details Date Type Department Care Team (Late Contact Info) Description 04/07/2023 Orders Only [facility] MEDICINE [address] [place] [address] [phone] Ariadne Pickard MD [address] [place] [address] [phone] Social History Tobacco Use Types Packs/Day Years [...] Encounters Date Type Department Care Team (Late Contact Info) Description 10/24/2024 9:00 AM EDT Office Visit [facility] MEDICINE [address] [place] [address] [phone] Elizabeth Alexis MD [address] [place] [address] [phone] documented as of this encounter Visit Diagnoses Not on filedocumented in this encounter Care Teams Communications Coordinator Relationship Specialty Start Date End Date Elizabeth Alexis MD [address] [place] [address] PCP - General Family Medicine 04/26/16 documented as of this encounter
--- OUTSIDE RECORDS SUMMARY | 2024-08-29 09:50 | XMS_ITS | Clinical Summary ---
Author Organization [employer] Address [address] [place] [address] 7[address] [place] [address] Care Team Providers Care Incoming Freight Clerk Name Role Phone Elizabeth Alexis MD Primary Care Provider + Allergies Active Allergy Reactions Criticality Noted Date Comments Penicillins Rash High 03/19/2008 Other reaction(s): Hives/Skin Rash Medications budesonide (Pulmicort Flexhaler) 180 MCG/ACT inhaler Inhale 1 puff every 12 (twelve) hours. 04/22/20 21 Active fluticasone (Flonase) 50 MCG/ACT nasal spray Administer 1-2 sprays into affected nostril(s) at bed time. 07/15/19 22 Active Blood Pressure Monitor kitIndications:Es sential hypertension Use as directed 3x/week 1 kit 10/20/19 23 Active Estrogens Conjugated (Premarin) 0.625 MG/GM cream Insert 1 g into the vagina 2 (two) times a week. 1 G VAGINALLY NIGHTLY X 2 WKS THEN 1 G VAGINALLY TWICE A WEEK ONGOING 30 g 2 12/02/19 23 Active fexofenadine (Hortensia) 180 MG tabletIndications :Dysfunction of both eustachian tubes TAKE 1 TABLET BY MOUTH EVERY DAY 90 tablet 01/12/20 23 Active Blood Glucose Monitoring Suppl (ONE TOUCH ULTRA 2) w/Device kitIndications:Ty pe 2 diabetes mellitus without complication, with long-term current use of insulin ([facility]) USE TO MONITOR BLOOD GLUCOSE TWICE DAILY 1 kit 02/01/20 23 Active rosuvastatin (Crestor) 20 MG tablet Take 1 tablet (20 mg) by mouth in the morning. 90 tablet 1 04/25/20 23 Active dulaglutide (Trulicity) 0.75 MG/0.5ML solution pen-injectorIndic ations:Type 2 diabetes mellitus without complication, without long-term current use of insulin ([facility]) INJECT 0.75MG SUBCUTANEOUSLY ONE TIME PER WEEK 6 mL 3 04/25/20 23 Active albuterol 108 (90 Base) MCG/ACT inhalerIndication s:Moderate persistent asthma without complication TAKE 2 PUFFS BY MOUTH EVERY 4 TO 6 HOURS NEEDED 8.5 g 1 09/22/19 24 Active OneTouch Ultra test stripIndications: Type 2 diabetes mellitus without complication, with long-term current use of insulin ([facility]) USE 1 STRIP TO MONITOR BLOOD GLUCOSE TWICE DAILY 100 strip 11 12/05/19 24 Active empagliflozin (Jardiance) 25 MG Take 1 tablet (25 mg) by mouth Once per day. 30 tablet 11 12/25/19 24 025 Active metFORMIN (Glucophage) 500 MG tabletIndications :Type 2 diabetes mellitus without complication, without long-term current use of insulin ([facility]) TAKE 1 TABLET (500 MG) BY MOUTH WITH BREAKFAST AND WITH EVENING MEAL 180 tablet 3 01/24/20 24 025 Active lisinopril 40 MG tablet TAKE 1 TABLET BY MOUTH EVERY DAY 90 tablet 1 04/01/20 24 Active ALPRAZolam (Xanax) 0.25 MG tablet Take 1 tablet (0.25 mg) by mouth if needed in the morning and at bedtime for anxiety for up to 2 days. 4 tablet 05/06/20 24 Active linaCLOtide (Linzess) 145 MCG capsuleIndication s:Slow transit constipation TAKE 1 CAPSULE BY MOUTH BEFORE BREAKFAST. DO NOT CRUSH OR CHEW. 90 capsule 3 05/22/20 24 Active aspirin (Aspirin Low Dose) 81 MG EC tabletIndications :At high risk for cardiovascular disease TAKE 1 TABLET BY MOUTH EVERY DAY 90 tablet 3 06/27/20 24 Active docusate sodium (Colace) 100 MG capsule Take 1 capsule (100 mg) by mouth Once per day. 90 capsule 05/22/20 24 025 Active Problems Problem Noted Date Diagnosed Date Acute cystitis with hematuria 12/25/2023 Assessment & Plan (01/17/2024 4:03 PM EDT): Rx Bactrim DX x 5d, fu culture results Stress due to illness of family member 4 Assessment & Plan (10/25/2023 9:52 AM EDT): - reassurance and offered support to navigate the recent cancer diagnosis of her sister - pt declined further counselor referral Concern about cancer without diagnosis 4 Assessment & Plan (10/25/2023 9:55 AM EDT): - acknowledged concern about her siblings with new cancer dx. Asked her to check within medical history if possible for genetic risk factors (I told her if there was predisposed RF she most likely would know by now) - pt wishes to be referred for further testing, and will be referred to [facility] that she is aware that no additional testing may be indicated and/or that other commercial tests may not be covered by insurance Left thyroid nodule 07/06/2023 Assessment & Plan (06/17/2024 5:05 PM EST): Reminded to do TFTs, may repeat thyroid US to monitor size, if not increased size, will discuss re stopping fu as she had already been seen by endo and discharged. Assessment & Plan (10/25/2023 2:30 PM EDT): - Endocrinology declined further evaluation due to size of the nodule (less than 1cm). Will order thyroid tests as they suggested (previously done last year) and will fu at next appt. - may discuss with interventional radiologist regarding FNA vs fu with thyroid US/uptake NM imaging? Assessment & Plan (09/11/2023 5:14 PM EST): Repeat thyroid US, Fam Hx thyroid Ca (no other neuroendocrine Ca). If nodule is present, will refer to endocrinology, consider KATHY Ricci. Assessment & Plan (07/06/2023 11:57 AM EST): Needs fu with thyroid US in 3m. Reassurance, I told her that t this point, size its not alarming, but given Fam Hx, I will do an US in about 3m when acute conditions is resolved (tooth infection), she agreed with POC She will ask her niece what type of thyroid Ca she has, specially given the fact that patient is taking Trulicity that could be contraindicated on patient with MED, not all type of cancers Cervical lymphadenopathy 06/29/2023 Assessment & Plan (07/06/2023 11:54 AM EST): She's clinically improving with Clindamycin. She'll complete abs and will fu with dentist. Red flags d/w patient including fever, worsening of pain while eating , enlargement of LN again. FU with me in 2m Assessment & Plan (06/29/2023 8:23 PM EST): from recent CT scan there is bilateral tonsillar enlargement periapical infection of the lower right medial incisor ,left medial and lateral incisor with bony erosions, Mild enlarged submandibular and bilateral cervical LNDs which maybe inflammatory in etiology. Bilateral parotid and submandibular glands appears prominent and symmetric . No fluid collections seen. So seems likely enlarged Lns are associated with periapical infection of the lower right medial incisor ,there are no systemic findings ,pt is feeling well w no airway compromise, no other LDN -px today again ATB but higher dose of anaerobic coverage w clindamycin 300 mg QID x 7 days -f PCP in 1 week schedule apt today if no better will christiano maybe neck surgeon eval and bx -alarm signs and symptoms discussed in length w pt -pf to have neck US reports just done last night -pt to f w PCP ,this will help as well eval reported small thyroid nodule Status post tooth extraction 06/09/2023 Assessment & Plan (06/09/2023 10:53 AM EST): Prescription for Tramadol 50mg q8hr prn for the next 2-3 days and FU w/ dentist Counseled about gargles w/ warm water and salt. Other microscopic hematuria 04/25/2023 Pain passing urine 04/04/2023 Assessment & Plan (04/04/2023 6:41 PM EDT): Possible Kidney Stone and/or UTI - did not submit enough urine to send for UCx; will repeat before making a decision to treat with antibiotic - since pt has a h/o kidney stone, will evaluate for kidney stone - Rx Flomax for short-term - will try if we can send her stone for analysis - will evaluate with CT Scan - proactive hydration was recommended History of kidney stones 04/04/2023 Assessment & Plan (06/09/2023 10:53 AM EST): CT of scan of abd and pelvis still pending Continue tylenol prn and will FU w/ CT scan results Tremor of left hand 01/20/2023 Assessment & Plan (01/20/2023 12:51 PM EDT): r/o cervical radiculopathy gave pt information about stretching exercises and strengthening for cervical spine, FU in 3 months Reconsult PRN Slow transit constipation 11/14/2022 Assessment & Plan (06/17/2024 5:02 PM EST): Restart Linzess, will do PA if needed. Assessment & Plan (01/20/2023 12:51 PM EDT): DC senna and start Linzesss 145 mg, continue colace Pt restart metformin daily and will hold above medications if she develops diarrhea FU in 3 months Assessment & Plan (11/14/2022 10:05 AM EDT): Continue Colace and add Senna to use PRN constipation more than 2 days. Encouraged increased water and fiber intake. Preop examination 09/29/2022 Chronic rhinitis 09/28/2022 Chronic constipation 09/28/2022 Vaginal dryness, menopausal 06/09/2022 Acute thoracic back pain 06/06/2022 Benign neoplasm of soft tissue 06/06/2022 Dysfunction of eustachian tube 06/06/2022 Exacerbation of intermittent asthma 06/06/2022 Hip pain 06/06/2022 Hearing loss of right ear 06/06/2022 Laceration of right little finger 06/06/2022 Moderate persistent asthma without complication 06/06/2022 Pure hypercholesterolemia 06/06/2022 Assessment & Plan (06/17/2024 5:05 PM EST): Check lipids Continue Crestor 20mg and control DM FU after lab results. Umbilical hernia 06/06/2022 Urticaria 06/06/2022 Viral disease 06/06/2022 Obstructive sleep apnea of adult 02/11/2020 Assessment & Plan (01/17/2024 4:07 PM EDT): Not using CPAP consistently as she doenst tolerate the big/face mask Will call DME provider to provide a smaller mask or nasal marimar I told her to use CPAP ever ynight to decrease morbidity and mortality, specially CV events. Assessment & Plan (04/25/2023 10:48 AM EDT): Not using CPAP consitetnly as she doenst tolerate the big/face mask Will call DME ocmpany to porvider a smaller mask or nasal marimar I told her to use CPAP ever ynight to decrease morbidity and mortality Near syncope 08/23/2018 Numbness of face 07/20/2018 Generalized abdominal pain 04/19/2018 Vitamin D deficiency 01/22/2018 Assessment & Plan (04/25/2023 10:50 AM EDT): Vit D levels are at goal, DC vit D Recommended outdoor exercise and daily sun exposure for at least 15min Generalized body aches 11/29/2017 Essential hypertension 04/26/2016 Assessment & Plan (01/17/2024 4:05 PM EDT): Uncontrolled. Compliant w/meds, needs to yvrose CPAP daily for better BP control Continue lisinopril+ amlodipine same dose Counseled re low salt diet/increase moderate physical activity. Check home BP BIW and prn CP/CONKLIN/HICKS Non smoking patient. FU BP in 3m after she starts using CPAP Assessment & Plan (06/29/2023 8:24 PM EST): Not took BP meds this am Home BP reported <140/90 Here elevated ,denies corwin CONKLIN,neurology symptoms,denies CP nor SOB -advised pt to be compliant w BP meds and has apt w PCP in 1 week to f up Assessment & Plan (04/25/2023 10:48 AM EDT): Controlled. Compliant w/meds Continue lisinopril same dose Counseled re low salt diet/increase moderate physical activity. Check home BP BIW and prn CP/CONKLIN/HICKS Non smoking patient. Assessment & Plan (01/20/2023 12:51 PM EDT): BP is at goal, no change in medicaitons Counseled re low salt diet/increase moderate physical activity. Check home BP BIW and prn CP/CONKLIN/HICKS Non smoking patient. Assessment & Plan (11/14/2022 10:12 AM EDT): HTN BP is at goal. Continue lisinopril and amlodipine Counseled re low salt diet/increase moderate physical activity. Check home BP BIW and prn CP/CONKLIN/HICKS Non smoking patient. Mild intermittent asthma 04/26/2016 Hyperlipidemia 04/26/2016 Low vision, both eyes 04/26/2016 Neck pain 04/26/2016 Type 2 diabetes mellitus without complication Assessment & Plan (06/17/2024 5:04 PM EST): Non compliant with diet and meds , mainly due to stress/depression. Advised to be compliant with diet and meds, fu A1c in 3m. Continue Jardiance, metformin and Trulicity Assessment & Plan (01/17/2024 4:07 PM EDT): Uncontrolled. Add Jardiance 25mg/d Continue on Trulicity, metformin and fu A1c in 3m Counseled re more frequent low calorie/carb meals. Check fgstk 2x daily Encouraged physical activity as tolerated. Order labs FU in 3 months. Assessment & Plan (10/25/2023 12:56 PM EDT): - significantly improving on Trulicity. Continue use of medications, may need to switch after thyroid nodule is fully elevated - f/u in 1-2 months Assessment & Plan (09/11/2023 5:13 PM EST): Uncontrolled. Continue on Metformin and Trulicity, encouraged more compliant with diet. Counseled re more frequent low calorie/carb meals. Check fgstk 1x daily Encouraged physical activity as tolerated. FU in 3 months, if A1c is not trending down, will adjust meds.. Assessment & Plan (06/09/2023 10:54 AM EST): Probably better controlled. Continue Trulicity 0.75mg /weekly + Metformin 500mg BID FU w/ me in 3 months Assessment & Plan (04/25/2023 10:52 AM EDT): ?Uncontrolled, we discussed about avoiding cookies, crackers Continue on Trulicity + Metformin Counseled re more frequent low calorie/carb meals. Check fgstk 2x daily Encouraged physical activity as tolerated. FU in 3 months. Declined Influenza and Covid booster Assessment & Plan (01/20/2023 12:52 PM EDT): Controlled A1c is at goal. Continue trulicity 0.75 per week + Metformin ER 500mg BID (Pt has been using metformin 1000 PRN only) FU with me in 3 months Assessment & Plan (11/14/2022 10:13 AM EDT): Most likely improved, due for A1C next month. Continue trulicity and stressed importance of taking metformin daily with meals, avoid taking it pRN hyperglycemia only. Counseled re more frequent low calorie/carb meals. Encouraged physical activity as tolerated. Due for cataract surgery next month. FU with me in 2 months. Resolved Problems Problem Noted Date Diagnosed Date Resolved Date Grief 06/06/2022 06/09/2023 Perineal hematoma 06/06/2022 06/09/2023 Encounters Date Type Department Care Team Description 06/27/2024 Refill [facility] [address] [place] [address] Elizabeth Alexis MD At high risk for cardiovascular disease 06/21/2024 Telephone [facility] [address] [place], [place] [phone] Felicia Moncada RNglobal manager 06/18/2024 Telephone [facility] [address] [place], [place] [phone] Elizabeth Alexis MD Prior Authorization ([facility] Request: Jose) from Last 3 Months Immunizations Name Administration Dates Next Due Hep B, adult 07/27/2016 Influenza injectable quadriv alent preservative free 06/02/2021,07/27/2016 Influenza, IIV3, injectable 03/26/2013,1 ,04/08/2009,2007 Moderna Covid-19 Vaccine 12+ 11/17/2020,10/13/19 21 Tdap 03/19/2008 Family History Medical History Relation Name Comments Breast cancer Sister Relation Name Status Comments Sister Alive Social History Tobacco Use Types Packs/Day Years Used Date Smoking Tobacco: Never Passive Smoke Exposure: Never Smokeless Tobacco: Never Tobacco Cessation:Counseling Given: Not Answered Alcohol Use Standard Drinks/Week Comments Yes 0 (1 standard drink = 0.6 oz pur e alcohol) social Housing Stability Answer Date Recorded What is your housing situation today? I have tyshawn guy 10/25/[address] you li ve. Do you have problems with any of the following? None of the above 10/25/2023 Food Insecurity Answer Date Recorded Within the past 12 months, y ou worried that your food would run out before you got money to buy more: Never True 10/25/2023 Within the past 12 months,th e food you bought just didn't last and you didn't have enough money to get more: Never True Transportation Answer Date Recorded In the past 12 months, has l ack of transportation kept you from medical appts, meetings, work or from getting things needed for daily living? No 10/25/2023 Utilities Answer Date Recorded In the past 12 months, has t he electric, gas, oil or water company threatened to shut off services in your home? No 10/25/2023 Depression Answer Date Recorded Patient Health Questionnaire-2 Score 0 10/25/2023 Comments No Sex and Gender Information Value Date Recorded Sex Assigned at Female 05/09/2022 10:24 AM EDT Legal Sex Female 10:24 AM EDT Gender Identity Female 05/09/2022 10:24 AM EDT Sexual Orientation Straight 05/09/2022 10 :24 AM EDT Last Filed Vital Signs Vital Sign Reading Time Taken Comments Blood Pressure 127/75 05/22/2024 10:31 AM EST Pulse 75 05/22/2024 10:31 AM EST Temperature 36.3 ??C (97.3 ??F) 05/22/2024 10:[address] Respiratory Rate 16 05/22/2024 10:31 AM EST Oxygen Saturation 100% 05/22/2024 10:31 AM EST Inhaled Oxygen Concentration - - Weight 63.7 kg (140 lb 6 oz) 05/22/2024 10:31 AM EST Height 170.2 cm (5' 7 ) 05/22/2024 10:31 AM EST Body Mass Index 21.99 05/22/2024 10:31 AM EST Plan of Treatment Upcoming Encounters Date Type Department Care Team (Late st Contact Info) Description 10/24/2024 9:00 AM EDT Office Visit [facility] [address] [place], [place] [phone] Elizabeth Alexis MD [address] [place], [place] [phone] Health Maintenance Due Date Last Done Comments CT Colonography 1959 FIT DNA/Cologuard 1959 FIT 1960 FOBT 1960 Sigmoidoscopy 1960 Alcohol/Substance Use Screening 1971 Hepatitis C Screening 1977 Pneumococcal Vaccine: 50+ Years (1 of 2 - PCV) 1978 Zoster Vaccines (1 of 2) 2009 Hepatitis B Vaccines (2 of 3 - 19+ 3-dose series) 08/24/2016 07/27/2016 DTaP/Tdap/Td Vaccines (2 - Td or Tdap) 03/19/2018 03/19/2008 RSV Patients and Patients Aged 60 years or older (1 - Risk 60-74 years 1-dose series) 2019 Diabetes: Foot Exam 06/09/2023 06/09/2022, 06/09/2022, 06/09/2022 Eye Exam 01/22/2024 COVID-19 Vaccine (3 - season) 2024 11/17/2020, 10/12/2020 Influenza Vaccine (#1) 2024 , 07/27/2016, 03/26/2013, Additional history exists Diabetes: Urine Protein Screening 04/06/2024 04/06/2023, 08/31/2021, 06/16/2020, Additional history exists Mammogram 06/13/2024 06/13/2023, 05/11, 05/20/2020, Additional history exists Diabetes: Hemoglobin A1C 08/22/2024 024, 12/25/2023, 09/11/2023, Additional history exists Depression Screening 10/24/2024 10/25/2023, 10/25/19 24 SDOH Screening 10/24/2024 10/25/2023 Lipid Panel 01/07/2025 01/08/2024, 03/11, 08/31/2021, Additional history exists Tobacco Screening 05/22/2025 05/22/2024 Pap Smear 12/01/2025 12/01/2022 Colonoscopy 06/07/2027 06/07/2017 Colorectal Cancer Screening 06/07/2027 Cervical Cancer Screening 12/02/2027 HPV/Cotest 12/02/2027 12/01/2022, 12/06/2017 HIB Vaccines Aged Out No longer eligi [...] patient's age to complete this topic Meningococcal Vaccine Aged Out No kalyani gris eligible based on patient's age to complete this topic RSV under 20 months Aged Out No longe r eligible based on patient's age to complete this topic Rotavirus Vaccines Aged Out No longer eligible based on patient's age to complete this topic Procedures Procedure Name Priority Date/Time Associated Diagnosis Comments POCT GLYCATED HEMOGLOBIN, TOTAL Routine 05/22/2024 10:39 AM EST Type 2 diabetes mellitus without complication, without long-term current use of insulin ([facility]) LIPID PANEL WITH REFLEX TO DIRECT LDL Routine 01/08/2024 8:13 AM EDT Type 2 diabetes mellitus without complication, without long-term current use of insulin ([facility]) Essential hypertension BI MAMMOGRAM SCREENING TOMOSYNTHESIS BILATERAL Routine 06/13/2023 8:37 AM EST ALBUMIN, RANDOM URINE W/CREATININE Routine 04/06/2023 9:32 AM EDT IMAGE-GUIDED PAP W/AGE BASED SCR,W/CT/NG/TRICH Routine 12/01/2022 11:03 AM EDT Cervical cancer screening Screening examination for venereal disease HM COLONOSCOPY Routine 06/07/2017 1:05 PM EST from Last 3 Months or Most Recently Relevant to Health Maintenance Results * (ABNORMAL) POCT HGB A1C (05/22/2024 10:39 AM EST) Hemoglobin A1C 8.1(A) 4.0 - 6.0 % QC Media Lot # [id number] Lot# Expiration Date Blood 05/22/2024 10:3 9 AM EST us Elizabeth Alexis MD POINT OF CARE TEST ENTER /EDIT ORDERABLES Final Result * (ABNORMAL) Lipid Panel with Reflex to Direct LDL (01/08/2024 8:13 AM EDT) Triglycerides 107 <150 mg/dL [facility] Comment:Desirable Triglyceri de: less than 150 mg/dLBorderline High Triglyceride 150-199 mg/dLHigh Triglyceride: 200-499 mg/dLVery High Triglyceride: greater than or equal to 5OO mg/dL Cholesterol 212(H) <200 mg/dL [facility] Comment:Desirable Cholestero l: less than 200 mg/dLBorderline High Cholesterol: 200-239 mg/dLHigh Cholesterol: greater than 239 mg/dL LDL Cholesterol Calculated 139(H) <100 mg/dL [facility] Comment:Desirable LDL: less than 100 mg/dLNear Optimal/Above Optimal LDL: 110- 129 mg/dLBorderline High LDL: 130-159 mg/dLHigh LDL: 160-189 mg/dLVery High LDL: greater than or equal to 190 mg/dL HDL Cholesterol 52 >40 mg/dL [facility] Comment:Desirable HDL: great er than 40 mg/dL Note: This HDL assay may give artificially low results in patients with liver disease. Blood 01/08/2024 8:13 AM EDT 01/08/2024 11:39 AM EDT us Elizabeth Alexis MD LAB BLOOD ORDERABLES Fin al Result [facility] [address] [place] [address] [phone] * BI Mammogram Screening Tomosynthesis Bilateral (06/13/2023 8:37 AM EST) Anatomical Region Laterality Modality Breast Bilateral Mammography 06/13/2023 8:37 AM EST Narrative 07/06/2023 3:53 AM EST ? [facility] [place] ? [address] ?[place] [id number] ? Mammography Report ? Signed ? Patient: Velazquez,Tawnya ?MR#: [id number] ?? 9 ? : 1960 ?Acct:[id number] ? Age/Sex: 63 / F ?ADM Date: 06/13/ ? Loc: HO.MAMMO ? Attending Dr: Elizabeth Alexis MD ? Ordering Physician: Elizabeth Alexis MD ?Results: 1Ne ?? gative ? Date of Service: 06/13/23 ?Follow Up: 1 Year From Orig ?? inal Mammogram ? Procedure(s): MM tomosynthesis screening BI ?? Accession Number(s): [id number] ? cc: Elizabeth Alexis MD ? EXAMINATION: ?? MM SCREENING DIGITAL BREAST TOMOSYNTHESIS, BILATERAL ? CLINICAL INFORMATION: ? Screening. Asymptomatic. ? COMPARISON: ?? Mammography: This study is compared with prior exams dating back to ?? 2018. ? TECHNIQUE: ?? Digital breast tomosynthesis is performed in both the craniocaudal and ?? mediolateral oblique views along with computer-aided detection (CAD). ?? Synthesized 2D images are generated from the tomosynthesis. ? FINDINGS: ?? The breasts are almost entirely fatty (ACR BI-RADS breast composition ?? Category a). ? There are no significant masses, abnormal calcifications, or other ?? abnormalities. ? MM/MM tomosynthesis screening BI ?? IMPRESSION: ?? No mammographic evidence of malignancy. ? ASSESSMENT: ? BI-RADS BI-RADS 1 - Negative ? RECOMMENDATION: ?? Routine annual mammography screening. ? 1 year F/U ? This examination should not preclude the clinical evaluation of a ?? suspicious palpable abnormality. ? This patient's information was entered into a reminder system with a ?? target due date for their next mammogram. ? Dictated By: ?Katie Jara MD ? Signed By: ?<Electronically signed by Katie Jara MD in OV> ? 07/06/239 ? DD/ 6 ? TD/TT: ? Business Services Intern: ? Procedure Note Riana, Ricarda - 07/06/2023 [facility] [address] [place] [address] Mammography Report Signed Patient: Nicole VelazquezChristelle#: [id number] 9 : 9Acct:[id number] Age/Sex: 63 / FADM Date: 06/13/23 Loc: MAMMO Attending Dr: Elizabeth Alexis MD Ordering Physician: Elizabeth Alexis MDResults: 1Ne yoni Date of Service: 06/13/23Follow Up: 1 Year From [facility] Mammogram Procedure(s): MM tomosynthesis screening BI Accession Number(s): [id number] cc: Elizabeth Alexis MD EXAMINATION: MM SCREENING DIGITAL BREAST TOMOSYNTHESIS, BILATERAL CLINICAL INFORMATION: Screening. Asymptomatic. COMPARISON: Mammography: This study is compared with prior exams dating back to 2018. TECHNIQUE: Digital breast tomosynthesis is performed in both the craniocaudal and mediolateral oblique views along with computer-aided detection (CAD). Synthesized 2D images are generated from the tomosynthesis. FINDINGS: The breasts are almost entirely fatty (ACR BI-RADS breast composition Category a). There are no significant masses, abnormal calcifications, or other abnormalities. MM/MM tomosynthesis screening BI IMPRESSION: No mammographic evidence of malignancy. ASSESSMENT: BI-RADS BI-RADS 1 - Negative RECOMMENDATION: Routine annual mammography screening. 1 year F/U This examination should not preclude the clinical evaluation of a suspicious palpable abnormality. This patient's information was entered into a reminder system with a target due date for their next mammogram. Dictated By: Katie Jara MD Signed By: <Electronically signed by Katie Jara MD in OV> 07/06/23 0349 DD/ 0837 TD/TT: Business Services Intern: us Elizabeth Alexis MD IMG BI PROCEDURES Edited Result - Final * Albumin, Random Urine W/Creatinine (04/06/2023 9:32 AM EDT) Creatinine, Urine 76.69 mg/dL [facility] Microalbumin Urine 16.0 mg/L [facility] Microalbum Creatinine Ratio Ur 20.8 <30 ug/mg cr [facility] Comment:Albumin/Creatinine R atio Reference Ranges: Normal: < 30 ug/mg creatinine Microalbuminuria: 30 - 300 ug/mg creatinineClinical Albuminuria: > 300 ug/mg creatinine 04/06/2023 9:32 AM EDT 04/06/2023 11:07 AM EDT Ariadne Pickard MD LAB URINE ORDERABLES Final Resul t [facility] [address] [place] [phone] * Image-Guided Pap with Age-Based Screening??with CT/NG,??Trichomonas (12/01/2022 11:03 AM EDT) Comment [facility] Comment: This order for age-based cervical cancer and STI screening follows ACOG guidelines(PB 168, 140, LYZ976). See individual assays for performing site location. Clinical Information: HYST FOR ? POSS CERV DYSP 30YR AGO [employer] LMP: NONE GIVEN [employer] Prev. PAP: NONE GIVEN [employer] Prev. BX: NONE GIVEN [employer] SOURCE: None given [employer] Statement Of Adequacy: [facility] Comment: Satisfactory for evaluation. Endocervical/transformation zone component absent. Interpretation/Re sult: Negative for intraepithelial lesion or malignancy. [facility] COMMENT: This Pap test has been evaluated with computer assisted technology. [facility] Math Specialist: Joesph Riot Gamest Comment: JNA, CT(ASCP) CT screening location: [address] ??[address] (Always Message) Que Contents First Comment: EXPLANATORY NOTE: The Pap is a screening test for cervical cancer. It is not a diagnostic test and is subject to false negative and false positive results. It is most reliable when a satisfactory sample, regularly obtained, is submitted with relevant clinical findings and history, and when the Pap result is evaluated along with historic and current clinical information. HPV nRNA E6/E7 Not Detected Not Detected [facility] Comment: Methodology: Health Data Administrator-Mediated Amplification This assay detects E6/E7 viral messenger RNA (mRNA) from 14 high-risk HPV types (16,18,31,33,35,39,45,51,52,56,58,59,66,68). Cervical sources are required for HPV testing. If a vaginal source from a patient who has had a total hysterectomy with removal of cervix was submitted, please contact the testing laboratory for alternative testing options. For additional information, please refer to http://Chlorine Genie.Ravn/faq/BMO850a8 (This link if provided for information/ educational purposes only.) Chlamydia trachomatis RNA, TMA, Urogenital NOT DETECTED NOT DETECTED [facility] Neisseria gonorrhoeae RNA, TMA, Urogenital NOT DETECTED NOT DETECTED [facility] (Always Message) Que Contents First Comment: The analytical performance characteristics of this assay, when used to test SurePath(TM) specimens have been determined by [facility]. The modifications have not been cleared or approved by the FDA. This assay has been validated pursuant to the CLIA regulations and is used for clinical purposes. For additional information, please refer to https://Amartus/faq/WTX032 (This link is being provided for information/ educational purposes only.) Trichomonas vaginalis, QL, TMA, PAP Vial NOT DETECTED NOT DETECTED [facility] Comment: The analytical performance characteristics of this assay have been determined by [facility]. The modifications have not been cleared or approved by the FDA. This assay has been validated pursuant to the CLIA regulations and is used for clinical purposes. For additional information, please refer to http://Chlorine Genie.Ravn/ faq/Trichomonastma (This link is being provided for information/ educational purposes only.) Pap Vial 12/01/2022 11:0 3 AM EDT 12/02/2022 7:58 AM EDT us Jodee [facility]AS[facility] LAB CYTOLOGY ORDERABLES F inal Result [facility] [address], [place] [address] [facility] [address] [place] [address] * Hm Colonoscopy (06/07/2017 1:05 PM EST) Colonoscopy Normal Normal Narrative Kajal Esparza - 06/07/2017 1:05 PM EST Recommended 10 years follow up us Historical Provider HEALTH MAINTENANCE Edited Result - Final from Last 3 Months or Most Recently Relevant to Health Maintenance Insurance - [employer] Care Teams Incoming Freight Clerk Relationship Specialty Start Date End Date Elizabeth Alexis MD [address] [place] [id number] PCP - General Family Medicine 04/26/16
--- OUTSIDE RECORDS SUMMARY | 2024-08-29 09:50 | XMS_ITS | Encounter Summary ---
Author Organization [employer] Address [address] [place] [address] [address] [place] [address] Care Team Providers Care Lay Out Carpenter Name Role Phone Elizabeth Alexis MD Primary Care Provider + Reason for Visit * Reason Comments Med Refill Encounter Details Date Type Department Care Team ([facility] Contact Info) Description 04/07/2023 Refill [facility] [address] [place] [address] [phone] Elizabeth Alexis MD [address] [place], [place] [phone] Type 2 diabetes mellitus without complication, with long-term current use of insulin ([facility]) Social History Tobacco Use Types Packs/Day Years [...] Upcoming Encounters Date Type Department Care Team ([facility] Contact Info) Description 10/24/2024 9:00 AM EDT Office Visit [facility] [address] [place] [phone] Elizabeth Alexis MD [address] [place], [place] [phone] documented as of this encounter Visit Diagnoses Diagnosis Type 2 diabetes mellitus without complication, with long-term current use of insulin ([facility]) documented in this encounter Care Teams Lay Out Carpenter Relationship Specialty Start Date End Date Elizabeth Alexis MD [address] [place] [address] PCP - General Family Medicine 04/26/16 documented as of this encounter
--- OUTSIDE RECORDS SUMMARY | 2024-08-29 09:50 | XMS_ITS | Data Portability ---
Author Organization [employer] Address [address] [place] [address] Care Team Providers Care Heel Sprayer Name Role Phone [facility] Referring Provider [facility] Referring Provider Assessment Encounter Date Assessment Date Assessment LastModified by Organization Details LastModified Time 10/03/2022 10/03/2022 I provided real -time medical direction via phone for this encounter, and was available for additional phone based assistance as needed. I have reviewed and agree with the Assessment and Plan as documented by the Anvilsmith. Patient given the opportunity to ask questions. Patient called today for a visit regarding URI symptoms. Has a cough and a sore throat has not really taken anything [id number]. Denies fever chills nausea vomiting chest pain. Has sick contacts. Does ascribe to having some greenish sputum production. Anvilsmith who is on scene with the patient describes stable vitals. Satting well on room air. No work of breathing. Given stable vitals and signs and symptoms of an viral upper respiratory tract infection will proceed with conservative care with Robitussin and Tessalon Perls. Would also have the patient take Tylenol for the sore throat and can all also gargle with salt water. Red flags discussed and if there is a progression of symptoms, patient encouraged to seek another visit with us versus follow-up with PCP. [email or web address] Not available 10/03/2022 18:23:55 Plan of Treatment Reminders Order Date Submit Date Provider Last Modified By Organization Details Last Modified Time Details Appointments None recorded. Lab None recorded. Referral None recorded. Procedures None recorded. Surgeries None recorded. Imaging None recorded. Medication Orders benzonatate 100 mg capsule 2022 023 [facility] #[id number], [address] [place], [address], 03/27/202 3 18:19:17 Robitussin Cough-Chest Congestion DM 5 mg-100 mg/5 mL oral liquid [address] [facility] #[id number], [address] [facility] [place], [address], 3 18:19:16 Patient TargetsNo targets recorded. Patient InstructionsNo instructions recorded. Reason for Referral None Reported. Medical Equipment None Reported. Allergies Allergen ID Allergen Name Allergen Category Reaction Reaction Severity Criticality Documentation Date Start Date Code Code System Note Provider Name and Address Organization Details Recorded Time 8303 Product containin g penicilli n (product) medicatio n Not available Not available Not available 05/07/2024 61682 8001 SNOMED Not Available [facility] - production 4 03:43:23 Medications Name Sig Start Date Stop Date Status Note LastModified by Organization Details LastModified Time atorvastatin 40 mg tablet TAKE 1 TABLET BY MOUTH AT BEDTIME active Not Available Not Available No t Available alprazolam 1 mg tablet TAKE 1 TABLET BY ORAL ROUTE JUST BEFORE TAKE OFF active Not Available Not Available No t Available metronidazol e 500 mg tablet TAKE 1 TABLET BY MOUTH EVERY 8 HOURS active Not Available Not Available No t Available fexofenadine 180 mg tablet TAKE 1 TABLET BY MOUTH EVERY DAY active Not Available Not Available No t Available ciprofloxaci n 500 mg tablet TAKE 1 TABLET BY MOUTH EVERY 12 HOURS active Not Available Not Available No t Available aspirin 81 mg tablet,delay ed release TAKE 1 TABLET BY MOUTH EVERY DAY active Not Available Not Available No t Available benzonatate 100 mg capsule TAKE 1 CAPSULE BY MOUTH THREE TIMES A DAY FOR 10 DAYS active Not Available Not Available Not Available metformin 1,000 mg tablet TAKE 1 TABLET BY MOUTH TWICE A DAY WITH MORNING AND EVENING MEALS active Not Available Not Available No t Available docusate sodium 100 mg capsule TAKE 1 CAPSULE BY MOUTH TWICE A DAY NEEDED active Not Available Not Available No t Available ergocalcifer ol (vitamin D2) 1,250 mcg (50,000 unit) capsule TAKE 1 CAPSULE BY MOUTH ONE TIME PER WEEK active Not Available Not Available No t Available albuterol sulfate HFA 90 mcg/actuatio n aerosol inhaler INHALE 2 PUFFS BY MOUTH EVERY 4 TO 6 HOURS NEEDED active Not Available Not Available No t Available lisinopril 40 mg tablet TAKE 1 TABLET BY MOUTH EVERY DAY active Not Available Not Available No t Available Novolog FlexPen U-100 Insulin aspart 100 unit/mL (3 mL) subcutaneous INJECT 3 TIMES DAILY BEFORE MEALS NEEDED DIRECTED BY SLIDING SCALE active Not Available Not Available No t Available Premarin 0.625 mg/gram vaginal cream INSERT 1 APPLICATORF UL INTO THE VAGINA 2 (TWO) TIMES A WEEK. active Not Available Not Available No t Available Januvia 100 mg tablet TAKE 1 TABLET BY MOUTH EVERY DAY active Not Available Not Available No t Available blood pressure test kit-large cuff USE TO CHECK BLOOD PRESSURE 3 TIMES PER WEEK active Not Available Not Available No t Available Prolensa 0.07 % eye drops PLACE 1 DROP in SURGICAL EYE(S) once DAILY AT bedtime for THREE weeks active Not Available Not Available Not Available Trulicity 0.75 mg/0.5 mL subcutaneous pen injector INJECT 0.75MG SUBCUTANEOU SLY ONE TIME PER WEEK active Not Available Not Available No t Available Robitussin Cough-Chest Congestion DM 5 mg-100 mg/5 mL oral liquid Take 5 mL 4 times a day by oral route as needed. 2022 active Not Available Not Available Not Avai lable Vitals Date Recorded Body temperature Heart rate Oxygen saturation Oxygen saturation in Arterial blood by Pulse oximetry Respiratory rate Body weight Systolic blood pressure Diastolic blood pressure Provider Name and Address Organization Details Last Updated DateTime 3 98.2 [degF] 95 /min 98 % 98 % 14 /min 12750.9 2 g 152 mm[Hg] 88 mm[Hg] Not Available [facility] - production 3 18:16:15 Social History None recorded. Functional Status None recorded. Mental Status None recorded. Family History Nothing Reported. Medical History No medical history recorded. Gynecological HistoryNo gynecological history recorded. Obstetrics History GPAL:G 0 P 0 0 0 0 Past Encounters Encounter ID Performer Location Encounter Start Date Encounter Closed Date Diagnosis/Indication Diagnosis SNOMED-CT Code Diagnosis ICD10 Code Diagnosis Note [id number] Ana Medina MD Main - [facility] [address] [place] [phone] 10/03/2022 18:16:13 10/05/2022 09:47:47 Viral upper respiratory tract infection 738669363 J06.9 Health Concerns Section Related Observation LastModified by Organization Detai ls LastModified Time None Recorded Concern Status LastModified by Organization Details LastModified Time None Recorded Advance Directives Directive None Recorded Payers Encounter Date Sequence Insurance Name Policy Number Policy Barrett Covered Member ID Barrett Member ID Guarantor Name 10/03/2022 1 [facility] - DOS PRIOR TO 2022 - DUAL ELIGIBLE (MEDICARE REPLACEMENT/ADV ANTAGE - HMO) Tawnya Velazquez [id number] Tawnya Velazquez Notes Date Note Type Note Provider Name and Address Organization Details Recorded Time 10/03/2022 text/html HPI: Patient with onset of illness last . Cough, congestion, sore throat headache and no fever. Is taking OTC medication and no symptom improvement. Patient tested negative for COvid on Monday. No shortness of breath and has not had to use rescue inhaler. To note: patient is scheduled for eye surgery this Monday. Advised she will need to update MD with STEVE and see if surgery will need to be rescheduled. .................. .................. .................. .................. .................. .................. .................. ............... CRC Nursing Assessment: Comments: CRC RN did not require any additional information to process this visit. .................. .................. .................. .................. .................. .................. .................. ............... Anvilsmith Note From Torsten Jorgensen: Pt complaing of productive cough with yellow and green sputum X 4 days and now has sore throat and CONKLIN from coughing. Pt presents COAX 4 speaking in full sentences. Skin PWD, HEENT unremarkable and PERRL. Airway is patent with adequate tidal volume. Diffuse ronchi noted in lungs bilaterally that clears with coughing. Vitals signs within normal limits and pt is a-febrile. POC Flu, Covid and Strep all neg. [facility] contacted who prescibed 500mg Tylenol and 100mg Tessalon Perles 100mg PO. Pt was administered first dose of each as prescribed and [facility] called prescription into pts pharmacy with addition of robitussin. Pt was educated on S/SX that would indicate 911 or ED visit and was reminded to hydrate with water. Anvilsmith Allergies: Penicillin .................. .................. .................. .................. .................. .................. .................. ............... Disposition: Fulfilled Ana Medina MD [address] [facility],[address], [place], [phone], [employer] 10/03/2022 18:24:11 OBGyn Episode No OBEpisode recorded.
== END 2024-08-29 09:10 | disposition home or self-care (01) ==
LOC: HO.MAMMO 09:09
PROVIDERS: PCP Internal Medicine; Visit Provider Internal Medicine
DX: Z12.31 Encounter for screening mammogram for malignant neoplasm of breast (principal)
CPT/HCPCS: 77063; 77067

== ENCOUNTER → 2024-08-29 09:45 | Outpatient (BNV) | payer OTHER, SELFPAY | PROVIDERS: PCP Internal Medicine; Visit Provider Internal Medicine | DX: Z12.31 Encounter for screening mammogram for malignant neoplasm of breast (principal) | CPT/HCPCS: 77063; 77067 ==

== ENCOUNTER 2024-10-29 08:56 | Outpatient (REF) | payer OTHER, SELFPAY ==
--- OUTSIDE RECORDS SUMMARY | 2024-10-29 09:23 | XMS_ITS | Encounter Summary ---
Author Organization [facility] Address [address] [place] [address] Care Team Providers Care Fixture Builder Name Role Phone Willis Garcia MD Primary Care Provider [phone] Adelaide Farooq MD Primary Care Provider Un available Reason for Visit * Reason Onset Date Comments asthma 09/17/2015 Encounter Details Date Type Department Care Team Description 09/17/2015 Telephone Adult Medicine [address] [phone] Willis Garcia MD [address] [place] [address] [phone] asthma Social History Tobacco Use Types Packs/Day Years Used Date Smoking Tobacco: Former Cigarettes Q uit: 07/10/1992 Smokeless Tobacco: Never Alcohol Use Standard Drinks/Week Comments No 0 (1 standard drink = 0.6 oz pur e alcohol) Sex Assigned at Date Recorded Not on file documented as of this encounter Miscellaneous Notes * Telephone Encounter - Alicia Cobos R.N. - 09/17/2015 2:47 PM EST [phone] (home) [phone] (work)' call placed to patient she was seen on by Hugo she is c/o cough with large amount of white phlegm she states she is unable to sleep she is c/o pain in back from cough appt scheduled for tomorrow @ 4pm roberto humphreys Home Care Advice: Advised home care following the asthma protocol. RN reinforced telephone consultation and advice. Reviewed with patient signs and symptoms to watch for that would require immediate attention. If symptoms change, worsen or increase in intensity, call doctor's office or answering service during off hours immediately. If seeks care in ER, patient told to call PCP office for an ER follow up visit next day, as needed. Referenced Telephone Triage Protocols for Nurses: Mary Giordano: Sav Hilario and Andrade Pages: * Telephone Encounter - Nikunj Gonzales - 09/17/2015 9:09 AM EST Symptoms patient is presenting: patient has asthma and was seen on 09/14/15 by Neema and is feeling no better. Patient is also having headaches If pain or injury related was it due to an accident at work or from a motor vehicle accident? NO If yes, gather 3rd libertarian insurance information Date of accident/Injury: How long has patient had these symptoms?: since monday PCP: Willis Garcia [place] / Product Type: MEDICARE [id number] documented in this encounter Plan of Treatment Not on file documented as of this encounter Visit Diagnoses Not on filedocumented in this encounter Care Teams Fixture Builder Relationship Specialty Start Date End Date Willis Garcia MD [address] [place] [address] PCP - General Internal Medicine 06/29/15 04/13/16 Adelaide Farooq MD [address] [place] [address] PCP - General Internal Medicine 04/14/16 documented as of this encounter
--- OUTSIDE RECORDS SUMMARY | 2024-10-29 09:23 | XMS_ITS | Encounter Summary ---
Author Organization [employer] Address [address] [facility] [address]t [place] [address] Care Team Providers Care Guideman Name Role Phone Elizabeth Alexis MD Primary Care Provider + Encounter Details Date Type Department Care Team (Late st Contact Info) Description 08/02/2023 Abstract [facility] [address] [place], [place] [phone] Elizabeth Alexis MD [address] [place], [place] [phone] Social History Tobacco Use Types Packs/Day Years [...] Care Team (Late st Contact Info) Description 01/23/2025 10:15 AM EDT Office Visit [facility] [address] [place] [address] Elizabeth Alexis MD [address] [place] [address] documented as of this encounter Visit Diagnoses Not on filedocumented in this encounter Care Teams Guideman Relationship Specialty Start Date End Date Elizabeth Alexis MD [address] [place], [place] [phone] PCP - General Family Medicine 04/26/16 documented as of this encounter
--- OUTSIDE RECORDS SUMMARY | 2024-10-29 09:24 | XMS_ITS | Encounter Summary ---
Author Organization [employer] Address [address] [place] [address] 7[address] [place] [address] Care Team Providers Care Motor Operator Name Role Phone Elizabeth Alexis MD Primary Care Provider + Reason for Visit * Reason Comments Med Refill Encounter Details Date Type Department Care Team ([facility] Contact Info) Description 03/14/2023 Refill [facility] [address] [place] [address] [phone] Elizabeth Alexis MD [address] [place], [place] [phone] Type 2 diabetes mellitus without complication, with long-term current use of insulin ([facility]) Social History Tobacco Use Types Packs/Day [...] Upcoming Encounters Date Type Department Care Team ([facility] Contact Info) Description 01/23/2025 10:15 AM EDT Office Visit [facility] [address] [place] [phone] Elizabeth Alexis MD [address] [place], [place] [phone] documented as of this encounter Visit Diagnoses Diagnosis Type 2 diabetes mellitus without complication, with long-term current use of insulin ([facility]) documented in this encounter Care Teams Motor Operator Relationship Specialty Start Date End Date Elizabeth Alexis MD [address] [place] [address] PCP - General Family Medicine 04/26/16 documented as of this encounter
--- OUTSIDE RECORDS SUMMARY | 2024-10-29 09:24 | XMS_ITS | Encounter Summary ---
Author Organization [employer] Address [address] [facility] 7t [place] [address] Care Team Providers Care Land Surveying Manager Name Role Phone Elizabeth Alexis MD Primary Care Provider + Reason for Visit * Reason Onset Date Comments Receive Call 10/24/2024 Encounter Details Date Type Department Care Team ([facility] st Contact Info) Description 10/24/2024 Telephone [facility] [address] [place] [address] Elizabeth Alexis MD [address] [place], [place] [phone] Receive Call Social History Tobacco Use Types Packs/Day Years [...] t he electric, gas, oil or water [employer] threatened to shut off services in your [...] encounter Miscellaneous Notes * Telephone Encounter - Cary Reis RN - 10/24/2024 2:29 PM EDT TC placed to patient [phone] in regards to below message. Patient reports she is all [facility]. Patient to f/u PRN. * Telephone Encounter - Melissa Moore - 10/24/2024 12:50 PM EDT Tc from pt calling back regarding a call from nurse. Cnc Cutting Operator didn't found any documentation of the call Contact pt at [phone] documented in this encounter Plan of Treatment Upcoming Encounters Date Type Department Care Team (Late st Contact Info) Description 01/23/2025 10:15 AM EDT Office Visit [facility] [address] [place] [address] Elizabeth Alexis MD [address] [place] [address] documented as of this encounter Visit Diagnoses Not on filedocumented in this encounter Care Teams Land Surveying Manager Relationship Specialty Start Date End Date Elizabeth Alexis MD [address] [place] [address] PCP - General Family Medicine 04/26/16 documented as of this encounter
--- OUTSIDE RECORDS SUMMARY | 2024-10-29 09:24 | XMS_ITS | Encounter Summary ---
Author Organization [employer] Address [address] [place] [address] [address] [place] [address] Care Team Providers Care Experimental Mechanic Electrical Name Role Phone Elizabeth Alexis MD Primary Care Provider + Encounter Details Date Type Department Care Team ([facility] Contact Info) Description 10/19/2022 Orders Only [facility] [address] [place] [address] [phone] Elizabeth Alexis MD [address] [place] [address] [phone] Essential hypertension Social History Tobacco Use Types [...] Upcoming Encounters Date Type Department Care Team ([facility] Contact Info) Description 01/23/2025 10:15 AM EDT Office Visit [facility] [address] [place] [phone] Elizabeth Alexis MD [address] [place] [address] documented as of this encounter Visit Diagnoses Diagnosis Essential hypertension Unspecified essential hypertension documented in this encounter Care Teams Experimental Mechanic Electrical Relationship Specialty Start Date End Date Elizabeth Alexis MD [address] [place] [address] PCP - General Family Medicine 04/26/16 documented as of this encounter
--- OUTSIDE RECORDS SUMMARY | 2024-10-29 09:24 | XMS_ITS | Encounter Summary ---
Author Organization [employer] Address [address] [place] [address] 7t [place] [address] Care Team Providers Care Public Safety Police Name Role Phone Elizabeth Alxeis MD Primary Care Provider + Reason for Visit * Reason Comments Med Refill Encounter Details Date Type Department Care Team ([facility] Contact Info) Description 04/07/2023 Refill [facility] [address] [place] [address] [phone] Elizabeth Alexis MD [address] [place], [place] [phone] Type 2 diabetes mellitus without complication, with long-term current use of insulin ([facility]) Social History Tobacco Use Types Packs/Day [...] Upcoming Encounters Date Type Department Care Team ([facility] Contact Info) Description 01/23/2025 10:15 AM EDT Office Visit [facility] [address] [place] [address] Elizabeth Alexis MD [address] [place], [place] [phone] documented as of this encounter Visit Diagnoses Diagnosis Type 2 diabetes mellitus without complication, with long-term current use of insulin ([facility]) documented in this encounter Care Teams Public Safety Police Relationship Specialty Start Date End Date Elizabeth Alexis MD [address] [place] [address] PCP - General Family Medicine 04/26/16 documented as of this encounter
--- OUTSIDE RECORDS SUMMARY | 2024-10-29 09:24 | XMS_ITS | Clinical Summary ---
Author Organization [facility] Address [address] [place] [address] Care Team Providers Care Nuclear Equipment Sales Engineer Name Role Phone Unavailable Primary Care Provider [...] Health Maintenance Due Date Last Done Comments Anxiety Screening 1960 Diabetes Screening 1960 Hepatitis C Screening 1960 [...] Bone Density Screening 02/05/2024 Falls Prevention 02/05/2024 [id number] (3 - 2023- season) 2024 021, 10/12/2020 Imm-Influenza (#1) 2024 06/02/2021, 0 07/27/2016, 03/26/2013, Additional history exists Alcohol and Drug Screen 07/10/2024 Depression Annual Screen 07/10/2024 Insurance [facility] Member Subscriber Plan / Payer (Ef fective 2022-Present) Name:Tawnya Velazquez Relation to Subscriber:Self Name:Tawnya Velazquez Payer ID:[id number] Group ID:Not on file Type:Indemnity Address: [facility] [address] [id number]
--- OUTSIDE RECORDS SUMMARY | 2024-10-29 09:24 | XMS_ITS | Encounter Summary ---
Author Organization [facility] Address [address] [place] [address] Care Team Providers Care Hydraulic Controls Technician Name Role Phone Name, Oscar GRAY Primary Care Provider Willis Molina MD Primary Care Provider [phone] Adelaide Farooq MD Primary Care Provider Un available Reason for Visit * Reason Onset Date Comments Nuclear Stress Testing 12/11/2013 Encounter Details Date Type Department Care Team Description 12/11/2013 Telephone Adult [address] [phone] Ligia Benavides NP Nuclear Stress Testing Social History Tobacco Use Types Packs/Day Years Used Date Smoking Tobacco: Former Cigarettes Q uit: 07/10/1992 Smokeless Tobacco: Never Alcohol Use Standard Drinks/Week Comments No 0 (1 standard drink = 0.6 oz pur e alcohol) Sex Assigned at Date Recorded Not on file documented as of this encounter Miscellaneous Notes * Telephone Encounter - Diana Galdamez - 12/11/2013 10:02 AM EDT FYI: Due to the urgency of your request and our nuclear camera being down x 2 weeks she has been scheduled at [facility] for 12-18 documented in this encounter Plan of Treatment Not on file documented as of this encounter Visit Diagnoses Not on filedocumented in this encounter Care Teams Hydraulic Controls Technician Relationship Specialty Start Date End Date Name, MD Oscar PCP - General 03/07/06 06/28/15 Willis Garcia MD [address] [place] [phone] PCP - General Internal Medicine 06/29/15 04/13/16 Adelaide Faroqo MD [address] [place] [address] PCP - General Internal Medicine 04/14/16 documented as of this encounter
--- OUTSIDE RECORDS SUMMARY | 2024-10-29 09:24 | XMS_ITS | Encounter Summary ---
Author Organization [facility] Address [address] [place] [address] Care Team Providers Care Antisqueak Worker Name Role Phone Name, Oscar GRAY Primary Care Provider Willis Molina MD Primary Care Provider [phone] Adelaide Farooq MD Primary Care Provider Un available Encounter Details Date Type Department Care Team Description 12/27/2013 SCAN Medical Records [address] [place] [phone] Abstract, Provider Social History Tobacco Use Types Packs/Day Years Used Date Smoking Tobacco: Former Cigarettes Q uit: 07/10/1992 Smokeless Tobacco: Never Alcohol Use Standard Drinks/Week Comments No 0 (1 standard drink = 0.6 oz pur e alcohol) Sex Assigned at Date Recorded Not on file documented as of this encounter Plan of Treatment Not on file documented as of this encounter Visit Diagnoses Not on filedocumented in this encounter Care Teams Antisqueak Worker Relationship Specialty Start Date End Date Name, MD Oscar PCP - General 03/07/06 06/28/15 Willis Garcia MD [address] [place] [address] [phone] PCP - General Internal Medicine 06/29/15 04/13/16 Adelaide Farooq MD [address] [place] [id number] PCP - General Internal Medicine 04/14/16 documented as of this encounter
--- OUTSIDE RECORDS SUMMARY | 2024-10-29 09:24 | XMS_ITS | Data Portability ---
Author Organization [employer] [facility] Address [address] [place] [address] Care Team Providers Care Strap Folding Machine Operator Name Role Phone [facility] Referring Provider [facility] Referring Provider Assessment Encounter Date Assessment Date Assessment LastModified by Organization Details LastModified Time 10/03/2022 10/03/2022 I provided real -time medical direction via phone for this encounter, and was available for additional phone based assistance as needed. I have reviewed and agree with the Assessment and Plan as documented by the Certified Nurse Operating Room. Patient given the opportunity to ask questions. Patient called today for a visit regarding URI symptoms. Has a cough and a sore throat has not really taken anything [id number] r. Denies fever chills nausea vomiting chest pain. Has sick contacts. Does ascribe to having some greenish sputum production. Certified Nurse Operating Room who is on scene with the patient [...] benzonatate 100 mg capsule 2022 023 [facility]acy #[id number], [address] [place], [address], 03/27/202 3 18:19:17 Robitussin Cough-Chest Congestion DM 5 mg-100 mg/5 mL oral liquid 2022 023 [facility] #[id number], [address] [facility] [place], [address], 3 18:19:16 Patient TargetsNo targets recorded. Patient InstructionsNo instructions recorded. Reason for Referral None Reported. Medical Equipment None Reported. Allergies Allergen ID Allergen Name Allergen Category Reaction Reaction Severity Criticality Documentation Date Start Date Code Code System Note Provider Name and Address Organization Details Recorded Time 8303 Product containin g penicilli n (product) medicatio n Not available Not available Not available 05/07/2024 58081 8001 SNOMED Not Available [employer] - production [...] /min 98 % 98 % 14 /min 12084.9 2 g 152 mm[Hg] 88 mm[Hg] Not [...] 8869 Ana Medina MD Main - [facility] [address] [place] [phone] 10/03/2022 18:16:13 10/05/2022 09:47:47 Viral upper respiratory tract infection [id number] J06.9 Health Concerns Section Related Observation LastModified by Organization Detai ls LastModified Time None Recorded Concern Status LastModified by Organization Details LastModified Time None Recorded Advance Directives Directive None Recorded Payers Encounter Date Sequence Insurance Name Policy Number Policy Barrett Covered Member ID Barrett Member ID Guarantor Name 10/03/2022 1 [facility] - DOS PRIOR TO 2022 - DUAL ELIGIBLE (MEDICARE REPLACEMENT/ADV ANTAGE - HMO) Tawnya Velazquez [id number] Tawnya Velazquez Notes Date Note Type Note [...] .................. .................. .................. .................. .................. .................. ............... Certified Nurse Operating Room Note From Torsten Jorgensen: Pt complaing of [...] POC Flu, Covid and Strep all neg. [facility] contacted who prescibed 500mg Tylenol and 100mg Tessalon Perles 100mg PO. Pt was administered first dose of each as prescribed and [facility] called prescription into pts pharmacy with addition of robitussin. Pt was educated on S/SX that would indicate 911 or ED visit and was reminded to hydrate with water. Certified Nurse Operating Room Allergies: Penicillin .................. .................. .................. .................. .................. .................. .................. ............... Disposition: Fulfilled Ana Medina MD [address] [facility],[address], [place], [address], [employer] 10/03/2022 18:24:11 OBGyn Episode No OBEpisode recorded.
--- OUTSIDE RECORDS SUMMARY | 2024-10-29 09:24 | XMS_ITS | Encounter Summary ---
Author Organization [employer] Address [address] [facility] 7t [place] [address] Care Team Providers Care Director Of Strategy & Mobile Name Role Phone Elizabeth lAexis MD Primary Care Provider + Reason for Visit * Reason Onset Date Comments paperwork 09/07/2022 Encounter Details Date Type Department Care Team ([facility] st Contact Info) Description 09/07/2022 Telephone [facility] [address] [place], [place] [phone] Elizabeth Alexis MD [address] [place], [place] [phone] paperwork Social History Tobacco Use Types Packs/Day [...] require notes. Pt was a little confused, commercial insurance underwriter could not take in all the information needed. Please contact Facility at [phone] extension [phone] [place] documented in this encounter Plan of Treatment Upcoming Encounters Date Type Department Care Team (Late st Contact Info) Description 01/23/2025 10:15 AM EDT Office Visit [facility] [address] [place] [address] Elizabeth Alexis MD [address] [place] [address] [phone] documented as of this encounter Visit Diagnoses Not on filedocumented in this encounter Care Teams Director Of Strategy & Mobile Relationship Specialty Start Date End Date Elizabeth Alexis MD [address] [place] [address] [phone] PCP - General Family Medicine 04/26/16 documented as of this encounter
--- OUTSIDE RECORDS SUMMARY | 2024-10-29 09:24 | XMS_ITS | Encounter Summary ---
Author Organization [employer] Address [address] [facility] 7t [place] [address] Care Team Providers Care Spiritual Care Coordinator Name Role Phone Elizabeth Alexis MD Primary Care Provider + Reason for Visit * Reason Comments Acupuncture Encounter Details Date Type Department Care Team ([facility] st Contact Info) Description 10/24/2024 9:30 AM EDT Office Visit [facility] [address] [place], [place] [phone] Balbina Gonzalez MD [address] [place], [place] [phone] Neck pain (Primary Dx) Social History Tobacco Use Types Packs/Day Years Used Date Smoking Tobacco: Never Passive Smoke Exposure: Never Smokeless Tobacco: Never Alcohol Use Standard Drinks/Week Comments Yes 0 (1 standard drink = 0.6 oz pur e alcohol) social Housing Stability Answer Date Recorded What is your housing situation today? I have tyshawn sing 10/25/[address] you li [...] the past 12 months, has t he [employer], gas, oil or water company threatened to [...] AM EDT documented as of this encounter Progress Notes * Balbina Gonzalez MD - 10/24/2024 9:30 AM EDT Subjective Patient ID: Tawnya Velazquez is a 64 y.o. female who presents for Acupuncture. Tawnya is being seen for acupuncture treatment #1. She is interested in addressing neck and shoulder pain, which she's been experiencing for about a month. No known injury. She was referred here by her PCP, Dr. Alexis. Review of Systems Musculoskeletal: Positive for neck pain. Objective Physical Exam Constitutional: Appearance: Normal appearance. Skin: General: Skin is warm and dry. Neurological: Mental Status: She is alert and oriented to person, place, and time. Assessment/Plan Diagnoses and all orders for this visit: Neck pain Written consent obtained for ear acupuncture. Ears prepped with alcohol pad. Five ear points needled bilaterally: Sympathetic, Maxwell Men, Kidney, Liver and Lung. Treatment duration: 30 minutes. Good hemostasis. Patient tolerated well. Follow up weekly for repeat acupuncture treatments as desired. documented in this encounter Plan of Treatment Upcoming Encounters Date Type Department Care Team (Late st Contact Info) Description 01/23/2025 10:15 AM EDT Office Visit [facility] [address] [place] [address] Elizabeth Alexis MD [address] [place] [address] documented as of this encounter Visit Diagnoses Diagnosis Neck pain- Primary Cervicalgia documented in this encounter Care Teams Spiritual Care Coordinator Relationship Specialty Start Date End Date Elizabeth Alexis MD [address] [place] [phone] PCP - General Family Medicine 04/26/16 documented as of this encounter
--- OUTSIDE RECORDS SUMMARY | 2024-10-29 09:24 | XMS_ITS | Encounter Summary ---
Author Organization [facility] Address [address] [place] [address] Care Team Providers Care Exhaust And Muffler Fitter Name Role Phone Name, Oscar GRAY Primary Care Provider Willis Molina MD Primary Care Provider [phone] Adelaide Farooq MD Primary Care Provider Un available Reason for Visit * Reason Onset Date Comments Appointment Cancelled 10/05/2009 3 no shows Encounter Details Date Type Department Care Team Description 10/05/2009 Telephone Gastroenterology - [place] [address] [place] [address] [phone] Nurse, Colonoscopy/[place] [phone] Appointment Cancelled (3 no shows) Social History Tobacco Use Types Packs/Day Years Used Date Smoking Tobacco: Former Comments:15 yrs ago Alcohol Use Standard Drinks/Week Comments No 0 (1 standard drink = 0.6 oz pur e alcohol) Sex Assigned at Date Recorded Not on file documented as of this encounter Miscellaneous Notes * Telephone Encounter - Domenica Gomez - 10/05/2009 5:50 PM EDT CARLIE Gusman - This patient has no showed 3 times for pre colon instruction, we will not pursue further scheduling without the re-issue of a referral. Thanks Domenica documented in this encounter Plan of Treatment Not on file documented as of this encounter Visit Diagnoses Not on filedocumented in this encounter Care Teams Exhaust And Muffler Fitter Relationship Specialty Start Date End Date Name, MD Oscar PCP - General 03/07/06 06/28/15 Willis Garcia MD [address] [place] [phone] PCP - General Internal Medicine 06/29/15 04/13/16 Adelaide Farooq MD [address] [place] [phone] PCP - General Internal Medicine 04/14/16 documented as of this encounter
--- OUTSIDE RECORDS SUMMARY | 2024-10-29 09:24 | XMS_ITS | Clinical Summary ---
Author Organization [facility] Address [address] [place] [address] Care Team Providers Care Mobile Home Installer Name Role Phone Adelaide Farooq MD Primary Care Provider Surgical History Surgery Date Site/Laterality Comments HYSTERECTOMY PROCEDURE: HISTORICAL HYSTERECTOMY SHOULDER SURGERY PROCEDURE: LA UNLISTED PROCEDURE SHOULDER; COMMENT: nayana on the R Medical History Medical History Date Comments DM (diabetes mellitus) ([facility] V24, [facility] V28) DX:DM (diabetes mellitus) ([facility]) Hypercholesteremia DX:Hyperchole steremia Asthma DX:Asthma Unspecified essential hypertension DX:Unspecified essential hypertension Family History Medical History Relation Name Comments Blindness Neg Hx Cataracts Neg Hx Glaucoma Neg Hx Macular degeneration Neg Hx Strabismus Neg Hx Relation Name Status Comments Brother 1 Alive HTN Brother 2 Alive Brother 3 Alive Brother 4 Alive Daughter 1 Alive Daughter 2 Alive Father [place] at age 65 Mother Alive DM, HTN, [...] Td or Tdap) 03/19/2018 03/19/2008 RSV Immunization Adult Patients (1 - Risk 60-74 years 1-dose series) 2019 Cholesterol Screening (Lipid Panel) 08/08/2023 Colorectal Cancer Screening: Colonoscopy 08/08/2023 Depression Screening 08/08/2023 Diabetes: Annual Urine Albumin-Creatinine Ratio (uACR) 08/08/2023 Diabetes: Blood Sugar Control Test (HGBA1C) 08/08/2023 Hepatitis C Screening 08/08/2023 Osteoporosis Screening (Bone Density Screening) 08/08/2023 Social Influencers of Health Screening 08/08/2023 Falls Risk Assessment 02/05/2024 COVID-19 Vaccine ( season) 2024 Influenza Vaccine (Season Ended) 2025 03/26/2013, 04/19/2011, 04/08/2009, Additional history exists HIB Vaccines [...] age to complete this topic Meningococcal B Vaccine Aged Out No l onger eligible based on patient's age to complete this topic RSV Immunization Patients Under 20 months Aged Out No longer eligible based on patient's age to complete this topic Varicella Vaccines Aged Out No longer eligible based on patient's age to complete this topic Care Teams Mobile Home Installer Relationship Specialty Start Date End Date Adelaide Farooq MD [address] [place] [address] PCP - General Internal Medicine 04/14/16
--- OUTSIDE RECORDS SUMMARY | 2024-10-29 09:24 | XMS_ITS | Encounter Summary ---
Author Organization [employer] Address [address] [facility] 7t [place] [address] Care Team Providers Care Apartment Coordinator Name Role Phone Elizabeth Alexis MD Primary Care Provider + Encounter Details Date Type Department Care Team (Latest Contact Info) Description 10/29/2024 Travel Social History Tobacco Use Types Packs/Day Years [...] 10:15 AM EDT Office Visit [facility] [address] [place] [address] Elizabeth Alexis MD [address] [place], [place] [phone] documented as of this encounter Visit Diagnoses Not on filedocumented in this encounter Care Teams Apartment Coordinator Relationship Specialty Start Date End Date Elizabeth Alexis MD [address] [place] [address] [phone] PCP - General Family Medicine 04/26/16 documented as of this encounter
--- OUTSIDE RECORDS SUMMARY | 2024-10-29 09:24 | XMS_ITS | Encounter Summary ---
Author Organization [facility] Address [address] [place] [address] Care Team Providers Care Press Operator Carbon Blocks Name Role Phone Name, Oscar GRAY Primary Care Provider Willis Molina MD Primary Care Provider [phone] Adelaide Farooq MD Primary Care Provider Un available Encounter Details Date Type Department Care Team Description 12/01/2011 Business Doc Medical Records [address] [place] [phone] Abstract, Provider Social History Tobacco Use Types Packs/Day Years Used Date Smoking Tobacco: Former Cigarettes Q uit: 07/10/1992 Alcohol Use Standard Drinks/Week Comments No 0 (1 standard drink = 0.6 oz pur e alcohol) Sex Assigned at Date Recorded Not on file documented as of this encounter Plan of Treatment Not on file documented as of this encounter Visit Diagnoses Not on filedocumented in this encounter Care Teams Press Operator Carbon Blocks Relationship Specialty Start Date End Date Name, MD Oscar PCP - General 03/07/06 06/28/15 Willis Garcia MD [address] [place] [address] [phone] PCP - General Internal Medicine 06/29/15 04/13/16 Adelaide Farooq MD [address] [place] [phone] PCP - General Internal Medicine 04/14/16 documented as of this encounter
--- OUTSIDE RECORDS SUMMARY | 2024-10-29 09:24 | XMS_ITS | Encounter Summary ---
Author Organization [employer] Address [address] [place] [address] 7t [place] [address] Care Team Providers Care Vp Strategy Name Role Phone Elizabeth Alexis MD Primary Care Provider + Encounter Details Date Type Department Care Team (Late Contact Info) Description 12/28/2022 Abstract [facility] [address] [place], [place] [phone] Elizabeth Alexis MD [address] [place], [place] [phone] Social History Tobacco Use Types Packs/Day Years [...] Description 01/23/2025 10:15 AM EDT Office Visit [facility] [address] [place], [place] [phone] Elizabeth Alexis MD [address] [place] [address] documented as of this encounter Procedures Procedure Name Priority Date/Time Associated Diagnosis Comments COLONOSCOPY Routine 06/07/2017 1:05 PM EST documented in this encounter Results * Colonoscopy (06/07/2017 1:05 PM EST) Colonoscopy Normal Normal Narrative Kajal Esparza - 06/07/2017 1:05 PM EST Recommended 10 years follow up us Historical Provider Donate Your Desktop MAINTENANCE Edited Result - Final documented in this encounter Visit Diagnoses Not on filedocumented in this encounter Care Teams Vp Strategy Relationship Specialty Start Date End Date Elizabeth Alexis MD [address] [place] [address] PCP - General Family Medicine 04/26/16 documented as of this encounter
--- OUTSIDE RECORDS SUMMARY | 2024-10-29 09:24 | XMS_ITS | Encounter Summary ---
Author Organization [facility] Address [address] [place] [address] Care Team Providers Care Dance Historian Name Role Phone Name, Oscar GRAY Primary Care Provider Willis Molina MD Primary Care Provider [phone] Adelaide Farooq MD Primary Care Provider Un available Encounter Details Date Type Department Care Team Description 01/26/2015 Release of Information Medical Records [address] [place] [phone] Abstract, Provider Social History Tobacco Use Types [...] on filedocumented in this encounter Care Teams Dance Historian Relationship Specialty Start Date End Date Name, MD Oscar PCP - General 03/07/06 06/28/15 Willis Garcia MD [address] [place] [address] [phone] PCP - General Internal Medicine 06/29/15 04/13/16 Adelaide Farooq MD [address] [place] [phone] PCP - General Internal Medicine 04/14/16 documented as of this encounter
--- OUTSIDE RECORDS SUMMARY | 2024-10-29 09:24 | XMS_ITS | Encounter Summary ---
Author Organization [employer] Address [address] [place] [address] 7t [place] [address] Care Team Providers Care Macerator Operator Name Role Phone Elizabeth Alexis MD Primary Care Provider + Reason for Visit * Reason Comments Med Refill Encounter Details Date Type Department Care Team ([facility] Contact Info) Description 01/01/[address] [facility] [address] [place] [address] [phone] Elizabeth Alexis MD [address] [place], [place] [phone] Type 2 diabetes mellitus without complication, with long-term current use of insulin ([facility]) Social History Tobacco Use Types [...] Upcoming Encounters Date Type Department Care Team ([facility] Contact Info) Description 01/23/2025 10:15 AM EDT Office Visit [facility] [address] [place] [address] Elizabeth Alexis MD [address] [place], [place] [phone] documented as of this encounter Visit Diagnoses Diagnosis Type 2 diabetes mellitus without complication, with long-term current use of insulin ([facility]) documented in this encounter Care Teams Macerator Operator Relationship Specialty Start Date End Date Elizabeth Alexis MD [address] [place] [address] PCP - General Family Medicine 04/26/16 documented as of this encounter
--- OUTSIDE RECORDS SUMMARY | 2024-10-29 09:24 | XMS_ITS | Clinical Summary ---
Author Organization [email or web address] Address [address] [place] [address] 7[address] [place] [address] Care Team Providers Care Credit Analyst Name Role Phone Elizabeth Alexis MD Primary Care Provider + Allergies Active Allergy Reactions Criticality Noted Date Comments Penicillins Rash High 03/19/2008 Other reaction(s): Hives/Skin Rash Medications budesonide (Pulmicort Flexhaler) 180 MCG/ACT inhaler Inhale 1 puff every 12 (twelve) hours. 021 Active fluticasone (Flonase) 50 MCG/ACT nasal spray Administer 1-2 sprays into affected nostril(s) at bed time. 022 Active Blood Pressure Monitor kitIndications:E ssential hypertension Use as directed 3x/week 1 kit 023 Active Estrogens Conjugated (Premarin) 0.625 MG/GM cream Insert 1 g into the vagina 2 (two) times a week. 1 G VAGINALLY NIGHTLY X 2 WKS THEN 1 G VAGINALLY TWICE A WEEK ONGOING 30 g 2 023 Active fexofenadine (Hortensia) 180 MG tabletIndication s:Dysfunction of both eustachian tubes TAKE 1 TABLET BY MOUTH EVERY DAY 90 tablet 023 Active Blood Glucose Monitoring Suppl (ONE TOUCH ULTRA 2) w/Device kitIndications:T ype 2 diabetes mellitus without complication, with long-term current use of insulin ([facility]) USE TO MONITOR BLOOD GLUCOSE TWICE DAILY 1 kit 023 Active rosuvastatin (Crestor) 20 MG tablet Take 1 tablet (20 mg) by mouth in the morning. 90 tablet 1 023 Active dulaglutide (Trulicity) 0.75 MG/0.5ML solution pen-injectorIndi cations:Type 2 diabetes mellitus without complication, without long-term current use of insulin ([facility]) INJECT 0.75MG SUBCUTANEOUSLY ONE TIME PER WEEK 6 mL 3 023 Active OneTouch Ultra test stripIndications :Type 2 diabetes mellitus without complication, with long-term current use of insulin ([facility]) USE 1 STRIP TO MONITOR BLOOD GLUCOSE TWICE DAILY 100 strip 11 Active empagliflozin (Jardiance) 25 MG Take 1 tablet (25 mg) by mouth Once per day. 30 tablet 11 024 2024 Active lisinopril 40 MG tablet TAKE 1 TABLET BY MOUTH EVERY DAY 90 tablet 1 024 Active ALPRAZolam (Xanax) 0.25 MG tablet Take 1 tablet (0.25 mg) by mouth if needed in the morning and at bedtime for anxiety for up to 2 days. 4 tablet Active linaCLOtide (Linzess) 145 MCG capsuleIndicatio ns:Slow transit constipation TAKE 1 CAPSULE BY MOUTH BEFORE BREAKFAST. DO NOT CRUSH OR CHEW. 90 capsule 3 024 Active aspirin (Aspirin Low Dose) 81 MG EC tabletIndication s:At high risk for cardiovascular disease TAKE 1 TABLET BY MOUTH EVERY DAY 90 tablet 3 024 Active albuterol 108 (90 Base) MCG/ACT inhalerIndicatio ns:Moderate persistent asthma without complication TAKE 2 PUFFS BY MOUTH EVERY 4 TO 6 HOURS NEEDED 8.5 g 1 Active cyclobenzaprine (Flexeril) 10 MG tabletIndication s:Neck pain Take 1 tablet (10 mg) by mouth at bedtime for 10 days. 10 tablet 025 2024 Active meloxicam (Mobic) 15 MG tablet Take 1 tablet (15 mg) by mouth Once per day. 30 tablet 025 2025 Active metFORMIN (Glucophage) 500 MG tabletIndication s:Type 2 diabetes mellitus without complication, without long-term current use of insulin ([facility]) Take 3 tablets PO QAM, 2 tab PO QPM 150 tablet 3 Active albuterol 108 (90 Base) MCG/ACT inhalerIndicatio ns:Moderate persistent asthma without complication TAKE 2 PUFFS BY MOUTH EVERY 4 TO 6 HOURS NEEDED 8.5 g 1 024 2024 Discontinued(R eorder (will not trigger notification to Pharmacy)) metFORMIN (Glucophage) 500 MG tabletIndication s:Type 2 diabetes mellitus without complication, without long-term current use of insulin (CMS/HCC) TAKE 1 TABLET (500 MG) BY MOUTH WITH BREAKFAST AND WITH EVENING MEAL 180 tablet 3 024 2024 Discontinued(R eorder (will not trigger notification to Pharmacy)) Active Problems Problem Noted Date Diagnosed Date Acute cystitis with hematuria 12/25/2023 Assessment & Plan (01/17/2024 4:03 PM EDT): Rx Bactrim DX x 5d, fu culture results Stress due to illness of family member Assessment & Plan (10/25/2023 9:52 AM EDT): - reassurance and offered support to navigate the recent cancer diagnosis of her sister - pt declined further counselor referral Concern about cancer without diagnosis Assessment & Plan (10/25/2023 9:55 AM EDT): - acknowledged concern about her siblings with new cancer dx. Asked her to check within medical history if possible for genetic risk factors (I told her if there was predisposed RF she most likely would know by now) - pt wishes to be referred for further testing, and will be referred to handbag frames inspector that she is aware that no additional testing may be indicated and/or that other commercial tests may not be covered by insurance Left thyroid nodule 07/06/2023 Assessment & Plan (06/17/2024 5:05 PM EST): Reminded to do TFTs, may repeat thyroid US to monitor size, if not increased size, will discuss re stopping fu as she had already been seen by [facility] and discharged. Assessment & Plan (10/25/2023 2:30 [...] is present, will refer to endocrinology, consider DC Trulicity. 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 Take meloxicam daily x 1 to 2 weeks and Tylenol twice daily as needed pain Take Flexeril nightly + Tylenol x 1 week Recommended to go to acupuncture clinic and reconsult as needed if symptoms do not improve within 2 to 3 weeks, may refer to PT Type 2 diabetes mellitus without complication Assessment & Plan (10/24/2024 9:39 AM EDT): Better control, A1c is trending down, not at goal yet. Continue Jardiance and increase metformin to 2500 mg/day. Continue off Trulicity for now, she wants to have TFTs done before. We had discussed extensively about GLP's and risk of endocrine cancer mainly on patients with MEN syndromes, which she does not seem to fit the clinical presentation, neither her niece who has thyroid cancer seem to have other type of endocrine cancers. Counseled re more frequent low calorie/carb meals. Check fgstk 1x daily Encouraged physical activity as tolerated. FU in 3 months. Assessment & Plan (06/17/2024 5:04 PM EST): [...] Encounters Date Type Department Care Team Description 10/29/2024 Travel 10/24/2024 9:30 AM EDT Office Visit [facility] [address] [place] [address] Balbina Gonzalez MD Neck pain (Primary Dx) 10/24/2024 9:00 AM EDT Office Visit [facility] [address] [place] [address] Elizabeth Alexis MD Neck pain (Primary Dx); Type 2 diabetes mellitus without complication, without long-term current use of insulin (CMS/HCC); Moderate persistent asthma without complication 10/24/2024 Telephone [facility] [address] [place] [phone] Elizabeth Alexis MD Receive Call 10/24/2024 Travel 10/18/[address] [phone] Elizabeth Alexis MD Chart prep 10/04/2024 Refill [facility] [address] [place] [address] [phone] Elizabeth Alexis MD Moderate persistent asthma without complication 08/29/2024 Orders Only [address] [phone] Elizabeth Alexis MD from Last 3 Months Immunizations Name Administration [...] housing situation today? I have tyshawngagan guy 10/25/[address] you [...] Sign Reading Time Taken Comments Blood Pressure 133/60 10/24/2024 9:00 AM EDT Pulse 77 10/24/2024 9:00 AM EDT Temperature 36.3 ??C (97.3 ??F) 10/24/2024 9:00 AM ED T Respiratory Rate 20 10/24/2024 9:00 AM EDT Oxygen Saturation 99% 10/24/2024 9:00 AM EDT Inhaled Oxygen Concentration - - Weight 63 kg (139 lb) 10/24/2024 9:00 AM EDT Height 170.2 cm (5' 7 ) 10/24/2024 9:00 AM EDT Body Mass Index 21.77 10/24/2024 9:00 AM EDT Plan of Treatment Upcoming Encounters Date Type Department Care Team (Late st Contact Info) Description 01/23/2025 10:15 AM EDT Office Visit [facility] [address] [place] [address] Elizabeth Alexis MD [address] [place] [address] Health Maintenance Due Date Last Done Comments CT Colonography 1959 FIT DNA/Cologuard 1959 FIT 1960 FOBT 1960 Sigmoidoscopy 1960 Hepatitis C Screening 1977 Pneumococcal Vaccine: 50+ [...] 06/09/2022, 06/09/2022 Eye Exam 01/22/2024 COVID-19 Vaccine ( season) 2024 11/17/2020, 10/12/2020 Influenza Vaccine (#1) 2024 , 07/27/2016, 03/26/2013, Additional history exists Diabetes: Urine Protein Screening 04/06/2024 04/06/2023, 08/31/2021, 06/16/2020, Additional history exists Depression Screening 10/24/2024 10/25/2023, 10/25/19 24 SDOH Screening 10/24/2024 10/25/2023 Lipid Panel 01/07/2025 01/08/2024, 03/11, 08/31/2021, Additional history exists Diabetes: Hemoglobin A1C 01/23/2025 025, 05/22/2024, 12/25/2023, Additional history exists Mammogram 08/29/2025 08/29/2024, 12/11/2022, 06/07/2022, Additional history exists Alcohol/Substance Use Screening 10/24/2025 10/24/2024 Tobacco Screening 10/24/2025 10/24/2024 Pap Smear 12/01/2025 12/01/2022 Colonoscopy 06/07/2027 06/07/2017 [...] Diagnosis Comments POCT GLYCATED HEMOGLOBIN, TOTAL Routine 10/24/2024 9:04 AM EDT Type 2 diabetes mellitus without complication, without long-term current use of insulin ([facility]) POCT GLUCOSE Routine 10/24/2024 9:03 AM EDT Type 2 diabetes mellitus without complication, without long-term current use of insulin ([facility]) BI MAMMOGRAM SCREENING TOMOSYNTHESIS BILATERAL Routine 08/29/2024 9:45 AM EST LIPID PANEL WITH REFLEX TO DIRECT LDL Routine 01/08/2024 8:13 AM EDT Type 2 diabetes mellitus without complication, without long-term current use of insulin ([facility]) Essential hypertension ALBUMIN, RANDOM URINE W/CREATININE Routine 04/06/2023 9:32 AM EDT IMAGE-GUIDED PAP W/AGE BASED SCR,W/CT/NG/TRICH Routine 12/01/2022 11:03 AM EDT Cervical cancer screening Screening examination for venereal disease HM COLONOSCOPY Routine 06/07/2017 1:05 PM EST from Last 3 Months or Most Recently Relevant to Health Maintenance Results * (ABNORMAL) POCT HGB A1C (10/24/2024 9:04 AM EDT) Hemoglobin A1C 7.7(A) 4.0 - 6.0 % QC Media Lot # [id number] Lot# Expiration Date ,295,040 Blood 10/24/2024 9:04 AM EDT us Elizabeth Alexis MD POINT OF CARE TEST ENTER /EDIT ORDERABLES Final Result * (ABNORMAL) POCT Glucose (10/24/2024 9:03 AM EDT) Glucose Blood, POC 207(A) 60 - 200 mg/dL QC Media Lot # [id number] Lot# Expiration Date Blood Capillary blood specimen / Unknown 10/24/2024 9:03 AM EDT us Elizabeth Alexis MD POINT OF CARE TEST ENTER /EDIT ORDERABLES Final Result * BI Mammogram Screening Tomosynthesis Bilateral (08/29/2024 9:45 AM EST) Anatomical Region Laterality Modality Breast Bilateral Mammography 08/29/2024 9:45 AM EST Narrative 09/06/2024 11:01 AM EST ? [facility] ? [address] ?[place] [address] ? Mammography Report ? Signed ? Patient: Velazquez,Tawnya ?MR#: [id number] ?? 9 ? : 1960 ?Acct:[id number] ? Age/Sex: 64 / F ?ADM Date: 08/29/24 ? Loc: HO.MAMMO ? Attending Dr: Elizabeth Alexis MD ? Ordering Physician: Elizabeth Alexis MD ?Results: 1Ne ?? gative ? Date of Service: 08/29/ ?Follow Up: 1 Year From Orig ?? inal Mammogram ? Procedure(s): MM tomosynthesis screening BI ?? Accession Number(s): [id number] ? cc: Elizabeth Alexis MD ? EXAMINATION: ?? MM SCREENING DIGITAL BREAST TOMOSYNTHESIS, BILATERAL ? CLINICAL INFORMATION: ? Screening. Asymptomatic. ? COMPARISON: ?? Mammography: Comparison is made with available priors ? TECHNIQUE: ?? Digital breast mammography with tomosynthesis is performed in both the ?? craniocaudal and mediolateral oblique views along with computer-aided ?? detection (CAD). ? FINDINGS: ?? There are scattered areas of fibroglandular density (ACR BI-RADS breast ?? composition Category b). ? There are no significant masses, abnormal [...] due date for their next mammogram. ? Electronically signed by: ??Edita Chung DO ??09/06/2024 10:58 AM EST ? Dictated By: ?Sheldon,Edita DO ? Signed By: ?<Electronically signed by Edita Chung, DO in OV> ? 09/06/24 1058 ? DD/ 0945 ? TD/TT: 08/29/24 1011 ? Bilingual Sales Assistant: ? Procedure Note Riana, Image - 09/06/2024 [place] [facility] [address] [place] [address] Mammography Report Signed Patient: Divina VelazquezSkylar#: [id number] 9 : 9Acct:[id number] Age/Sex: 64 / FADM Date: 08/29/24 Loc: HO.MAMMO Attending Dr: Elizabeth Alexis MD Ordering Physician: Elizabeth Alexis MDResults: 1Ne gative Date of Service: 08/29/24Follow Up: 1 Year From [facility] ina Mammogram Procedure(s): MM tomosynthesis screening BI Accession Number(s): [id number] cc: Elizabeth Alexis MD EXAMINATION: MM SCREENING DIGITAL BREAST TOMOSYNTHESIS, BILATERAL CLINICAL INFORMATION: Screening. Asymptomatic. COMPARISON: Mammography: Comparison is made with available priors TECHNIQUE: Digital breast mammography with tomosynthesis is performed in both the craniocaudal and mediolateral oblique views along with computer-aided detection (CAD). FINDINGS: There are scattered areas of fibroglandular density (ACR BI-RADS breast composition Category b). There are no significant masses, abnormal calcifications, [...] target due date for their next mammogram. Electronically signed by: Edita Chung DO 09/06/2024 10:58 AM [facility] Dictated By: Edita Chung DO Signed By: <Electronically signed by Edita Chung DO in OV> 09/06/24 1058 DD/ 0945 TD/TT: 08/29/24 1011 Bilingual Sales Assistant: us Elizabeth Alexis MD IMG BI PROCEDURES Final Result * (ABNORMAL) Lipid Panel with Reflex to Direct LDL (01/08/2024 8:13 AM EDT) Triglycerides 107 <150 mg/dL [facility] Comment:Desirable Triglyceri de: less than 150 mg/dLBorderline High Triglyceride 150-199 mg/dLHigh Triglyceride: 200-499 mg/dLVery High Triglyceride: greater than or equal to 5OO mg/dL Cholesterol 212(H) <200 mg/dL [facility] Comment:Desirable Cholestero l: less than 200 mg/dLBorderline High Cholesterol: 200-239 mg/dLHigh Cholesterol: greater than 239 mg/dL LDL Cholesterol Calculated 139(H) <100 mg/dL [facility] Comment:Desirable LDL: less than 100 mg/dLNear Optimal/Above Optimal LDL: 110- 129 mg/dLBorderline High LDL: 130-159 mg/dLHigh LDL: 160-189 mg/dLVery High LDL: greater than or equal to 190 mg/dL HDL Cholesterol 52 >40 mg/dL [facility] Comment:Desirable HDL: great er than 40 mg/dL Note: This HDL assay may give artificially low results in patients with liver disease. Blood 01/08/2024 8:13 AM EDT 01/08/2024 11:39 AM EDT us Elizabeth Alexis MD LAB BLOOD ORDERABLES Fin al Result Performing Organization Address [facility] Co de Phone Number [facility] [address] [place] [phone] * Albumin, Random Urine W/Creatinine (04/06/2023 9:32 AM EDT) Creatinine, Urine 76.69 mg/dL [facility] Microalbumin Urine 16.0 mg/L [facility] Microalbum Creatinine Ratio Ur 20.8 <30 ug/mg cr [facility] Comment:Albumin/Creatinine R atio Reference Ranges: Normal: < 30 ug/mg creatinine Microalbuminuria: 30 - 300 ug/mg creatinineClinical Albuminuria: > 300 ug/mg creatinine 04/06/2023 9:32 AM EDT 04/06/2023 11:07 AM EDT us Ariadne Pickard MD LAB URINE ORDERABLES Final Resul t Performing Organization Address [facility] Co de Phone Number [facility] [address] [place] [phone] * Image-Guided Pap with Age-Based Screening??with CT/NG,??Trichomonas (12/01/2022 11:03 AM EDT) Comment [facility] Comment: This order for age-based cervical cancer and STI screening follows ACOG guidelines(PB 168, 140, BVU246). See individual assays for performing site location. Clinical Information: HYST FOR ? POSS CERV DYSP 30YR AGO [facility] LMP: NONE GIVEN [facility] Prev. PAP: NONE GIVEN [place] Prev. BX: NONE GIVEN [place] SOURCE: None given [facility] Statement Of Adequacy: [facility] Comment: Satisfactory for evaluation. Endocervical/transformation zone component absent. Interpretation/Re sult: Negative for intraepithelial lesion or malignancy. [facility] COMMENT: This Pap test has been evaluated with computer assisted technology. [facility] Speech And Hearing Director: Joesph [employer] Comment: JNA, CT(ASCP) CT screening location: [address] ??[phone] (Always Message) [facility] [employer] Comment: EXPLANATORY NOTE: The Pap is a [...] HPV nRNA E6/E7 Not Detected Not Detected [facility] Comment: Methodology: Higher Level Teaching Assistant-Mediated Amplification This assay detects E6/E7 viral messenger RNA (mRNA) from 14 high-risk HPV types (16,18,31,33,35,39,45,51,52,56,58,59,66,68). Cervical sources are required for HPV testing. If a vaginal source from a patient who has had a total hysterectomy with removal of cervix was submitted, please contact the testing laboratory for alternative testing options. For additional information, please refer to http://education.FlexScore/faq/XIE051m4 (This link if provided for information/ educational purposes only.) Chlamydia trachomatis RNA, TMA, Urogenital NOT DETECTED NOT DETECTED [facility] Neisseria gonorrhoeae RNA, TMA, Urogenital NOT DETECTED NOT DETECTED [facility] (Always Message) [facility] Comment: The analytical performance characteristics of this assay, when used to test SurePath(TM) specimens have been determined by [facility]. The modifications have not been cleared or approved by the FDA. This assay has been validated pursuant to the CLIA regulations and is used for clinical purposes. For additional information, please refer to https://Site Intelligence.FlexScore/faq/RKG351 (This link is being provided for information/ educational purposes only.) Trichomonas vaginalis, QL, TMA, PAP Vial NOT DETECTED NOT DETECTED [facility] Comment: The analytical performance characteristics of this assay have been determined by [facility]. The modifications have not been cleared or approved by the FDA. This assay has been validated pursuant to the CLIA regulations and is used for clinical purposes. For additional information, please refer to http://[employer] Intelligence.[employer]/ faq/Trichomonastma (This link is being provided for information/ educational purposes only.) Pap Vial 12/01/2022 11:0 3 AM EDT 12/02/2022 7:58 AM EDT Jodee Rodriguez CNM LAB CYTOLOGY ORDERABLES F inal Result [facility] [address], [place] [phone] [facility] [place] [facility] [address] [place] [address] * Hm Colonoscopy (06/07/2017 1:05 PM EST) Colonoscopy Normal Normal Narrative Kajal Esparza - 06/07/2017 1:05 PM EST Recommended 10 years follow up Historical Provider HEALTH MAINTENANCE Edited Result - Final from Last 3 Months or Most Recently Relevant to Health Maintenance Insurance [employer] (HMO D-SNP) [place] [id number] Care Teams Credit Analyst Relationship Specialty Start Date End Date Elizabeth Alexis MD [address] [place] [phone] PCP - General Family Medicine 04/26/16
--- OUTSIDE RECORDS SUMMARY | 2024-10-29 09:24 | XMS_ITS | Encounter Summary ---
Author Organization [employer] Address [address] [facility] [address] [place] [address] Care Team Providers Care Anvil Worker Name Role Phone Elizabeth Alexis MD Primary Care Provider + Reason for Visit * Reason Comments Med Refill Encounter Details Date Type Department Care Team ([facility] st Contact Info) Description 05/05/2023 Refill [facility] [address] [place], [place] [phone] Elizabeth Alexis MD [address] [place], [place] [phone] Social History Tobacco Use Types Packs/Day Years [...] Description 01/23/2025 10:15 AM EDT Office Visit [facility] [address] [place] [address] Elizabeth Alexis MD [address] [place] [address] documented as of this encounter Visit Diagnoses Not on filedocumented in this encounter Care Teams Anvil Worker Relationship Specialty Start Date End Date Elizabeth Alexis MD [address] [place] [phone] PCP - General Family Medicine 04/26/16 documented as of this encounter
--- OUTSIDE RECORDS SUMMARY | 2024-10-29 09:24 | XMS_ITS | Encounter Summary ---
Author Organization [employer] Address [address] [facility] [address] [place] [address] Care Team Providers Care Radio Electronics Officer Name Role Phone Elizabeth Alexis MD Primary Care Provider + Encounter Details Date Type Department Care Team (Late st Contact Info) Description 10/24/2024 9:00 AM EDT Office Visit [facility] MED[facility] [address] [place], [place] [phone] Elizabeth Alexis MD [address] [place], [place] [phone] Neck pain (Primary Dx); Type 2 diabetes mellitus without complication, without long-term current use of insulin ([facility]/HCC); Moderate persistent asthma without complication Social History Tobacco Use Types Packs/Day Years [...] AM EDT documented as of this encounter Last Filed Vital Signs Vital Sign Reading [...] Mass Index 21.77 10/24/2024 9:00 AM EDT documented in this encounter Progress Notes * Elizabeth Alexis MD - 10/24/2024 9:00 AM EDT SUBJECTIVE: Tawnya Velazquez is a 64 y.o. year old female who presents for follow up dm/thyroid. Denies recent illness, injury, or hospitalization. Overall patient is doing well, she still sad after her sister from breast cancer last year but she is coping with new situation. Her appetite is better and she indulges sometimes in high calorie meals but most of the time she iscompliant with small and flexion portions. Her RBS at home range anywhere between 120-180, occasionally low 200s and she does not have hypoglycemia. She continues to be off Trulicity but she did not check TFTs for today's appointment. Of note she was followed by endocrine due to thyroid nodules andhistory of thyroid cancer in her family (her niece had thyroid cancer, recovered). There is no history of other endocrine cancers in her family and have thyroid nodules both remained stable. She had an acute asthma exacerbation last week that lasted 3 days and was treated with albuterol asneeded. Her previous asthma exacerbation was 2 or 3 years ago. Acute Concerns: Complains progressive upper back and shoulder pain for about a month that is not improved with ibuprofen and naproxen. She does not have hand numbness and has occasional headache. Social History Social History Narrative Not on file Patient Active Problem List Diagnosis Acute thoracic back pain Benign neoplasm of soft tissue Dysfunction of eustachian tube Essential hypertension Exacerbation of intermittent asthma Mild intermittent asthma Hip pain Generalized abdominal pain Generalized body aches Hearing loss of right ear Hyperlipidemia Laceration of right little finger Low vision, both eyes Moderate persistent asthma without complication Near syncope Neck pain Numbness of face Obstructive sleep apnea of adult Pure hypercholesterolemia Type 2 diabetes mellitus without complication (CMS/HCC) Umbilical hernia Urticaria Viral disease Vitamin D deficiency Vaginal dryness, menopausal Chronic rhinitis Chronic constipation Preop examination Slow transit constipation Tremor of left hand Pain passing urine History of kidney stones Other microscopic hematuria Status post tooth extraction Cervical lymphadenopathy Left thyroid nodule Stress due to illness of family member Concern about cancer without diagnosis Acute cystitis with hematuria Family History Problem Relation Name Age of Onset Breast cancer Sister 62 Review of Systems Constitutional: Negative for chills, fatigue and fever. HENT: Negative for congestion, ear pain, nosebleeds, rhinorrhea, sinus pressure, sore throat and trouble swallowing. Eyes: Negative for pain and discharge. Respiratory: Positive for cough. Negative for chest tightness and shortness of breath. Cardiovascular: Negative for chest pain, palpitations and leg swelling. Gastrointestinal: Negative for abdominal pain, blood in stool, constipation, diarrhea and nausea. Endocrine: Negative for polydipsia and polyuria. Genitourinary: Negative for dysuria, frequency, genital sores, pelvic pain and vaginal discharge. Musculoskeletal: Positive for arthralgias and neck pain. Negative for back pain. Skin: Negative for rash. Allergic/Immunologic: Negative for environmental allergies. Neurological: Negative for dizziness, seizures, weakness, light-headedness and headaches. Hematological: Negative for adenopathy. Psychiatric/Behavioral: Negative for agitation, behavioral problems, self-injury and suicidal ideas. OBJECTIVE: Vitals: 10/24/24 0900 BP: 133/60 Pulse: 77 Resp: 20 Temp: 97.3 ??F (36.3 ??C) SpO2: 99% Physical Exam HENT: Right Ear: Tympanic membrane and ear canal normal. Left Ear: Tympanic membrane and ear canal normal. Mouth/Throat: Mouth: Mucous membranes are moist. Pharynx: No oropharyngeal exudate or posterior oropharyngeal erythema. Eyes: Pupils: Pupils are equal, round, and reactive to light. Cardiovascular: Rate and Rhythm: Regular rhythm. Pulses: Normal pulses. Heart sounds: Normal heart sounds. No murmur heard. Pulmonary: Breath sounds: Normal breath sounds. Abdominal: General: Bowel sounds are normal. Palpations: Abdomen is soft. Tenderness: There is no abdominal tenderness. Musculoskeletal: Right shoulder: Tenderness present. Decreased range of motion. Cervical back: Neck supple. Spasms and tenderness present. Decreased range of motion. Skin: General: Skin is warm. Neurological: General: No focal deficit present. Mental Status: She is alert and oriented to person, place, and time. Psychiatric: Mood and Affect: Mood normal. Behavior: Behavior normal. Office Visit on 10/24/2024 Component Date Value Ref Range Status Glucose Blood, POC 10/24/2024 207 (A) 60 - 200 mg/dL Final QC Media Lot # 10/24/2024 [id number] Final Lot# Expiration Date 10/24/2024 [id number] Final Hemoglobin A1C 10/24/2024 7.7 (A) 4.0 - 6.0 % Final QC Media Lot # 10/24/2024 [id number] Final Lot# Expiration Date 10/24/2024 [id number] Final Problem List Items Addressed This Visit Type 2 diabetes mellitus without complication (CMS/HCC) Better control, A1c is trending down, not [...] has thyroid cancer seem to have other typeof endocrine cancers. Counseled re more frequent low calorie/carb meals. Check fgstk 1x daily Encouraged physical activity as tolerated. FU in 3 months. Relevant Medications metFORMIN (Glucophage) 500 MG tablet Other Relevant Orders POCT Glucose (Completed) POCT HGB A1C (Completed) Moderate persistent asthma without complication Resolved Continue albuterol as needed only, she will reconsult as needed if she has recurrent symptoms, may need inhaled steroid She is a non-smoker Neck pain - Primary Most likely cervical spasm secondary to underlying DJD of the C-spine Recommend heat to affected area and do stretching exercises daily. Take meloxicam daily x 1 to 2 weeks and Tylenol twice daily as needed pain Take Flexeril nightly + Tylenol x 1 week Recommended to go to acupuncture clinic and reconsult as needed if symptoms do not improve within 2to 3 weeks, may refer to PT Relevant Medications cyclobenzaprine (Flexeril) 10 MG tablet Follow Up: Current Outpatient Medications on File Prior to Visit Medication Sig Dispense Refill albuterol 108 (90 Base) MCG/ACT inhaler TAKE 2 PUFFS BY MOUTH EVERY 4 TO 6 HOURS NEEDED 8.5 g 1 ALPRAZolam (Xanax) 0.25 MG tablet Take 1 tablet (0.25 mg) by mouth if needed in the morning and at bedtime for anxiety for up to 2 days. 4 tablet 0 aspirin (Aspirin Low Dose) 81 MG EC tablet TAKE 1 TABLET BY MOUTH EVERY DAY 90 tablet 3 Blood Glucose Monitoring Suppl (ONE TOUCH ULTRA 2) w/Device kit USE TO MONITOR BLOOD GLUCOSE TWICE DAILY 1 kit 0 Blood Pressure Monitor kit Use as directed 3x/week 1 kit 0 budesonide (Pulmicort Flexhaler) 180 MCG/ACT inhaler Inhale 1 puff every 12 (twelve) hours. dulaglutide (Trulicity) 0.75 MG/0.5ML solution pen-injector INJECT 0.75MG SUBCUTANEOUSLY ONE TIME PER WEEK 6 mL 3 empagliflozin (Jardiance) 25 MG Take 1 tablet (25 mg) by mouth Once per day. 30 tablet 11 Estrogens Conjugated (Premarin) 0.625 MG/GM cream Insert 1 g into the vagina 2 (two) times a week. 1 G VAGINALLY NIGHTLY X 2 WKS THEN 1 G VAGINALLY TWICE A WEEK ONGOING 30 g 2 fexofenadine (Hortensia) 180 MG tablet TAKE 1 TABLET BY MOUTH EVERY DAY 90 tablet 0 fluticasone (Flonase) 50 MCG/ACT nasal spray Administer 1-2 sprays into affected nostril(s) at bed time. linaCLOtide (Linzess) 145 MCG capsule TAKE 1 CAPSULE BY MOUTH BEFORE BREAKFAST. DO NOT CRUSH OR CHEW. 90 capsule 3 lisinopril 40 MG tablet TAKE 1 TABLET BY MOUTH EVERY DAY 90 tablet 1 OneTouch Ultra test strip USE 1 STRIP TO MONITOR BLOOD GLUCOSE TWICE DAILY 100 strip 11 rosuvastatin (Crestor) 20 MG tablet Take 1 tablet (20 mg) by mouth in the morning. 90 tablet 1 [DISCONTINUED] metFORMIN (Glucophage) 500 MG tablet TAKE 1 TABLET (500 MG) BY MOUTH WITH BREAKFAST AND WITH EVENING MEAL 180 tablet 3 No current facility-administered medications on file prior to visit. documented in this encounter Miscellaneous Notes * Assessment & Plan Note - Elizabeth Alexis MD - 10/24/2024 9:39 AM EDT Associated Problem(s): Type 2 diabetes mellitus without complication (CMS/HCC) Better control, A1c is trending down, not [...] has thyroid cancer seem to have other typeof endocrine cancers. Counseled re more frequent low calorie/carb meals. Check fgstk 1x daily Encouraged physical activity as tolerated. FU in 3 months. * Assessment & Plan Note - Elizabeth Alexis MD - 10/24/2024 9:36 AM EDT Associated Problem(s): Moderate persistent asthma without complication Resolved Continue albuterol as needed only, she will reconsult as needed if she has recurrent symptoms, may need inhaled steroid She is a non-smoker * Assessment & Plan Note - Elizabeth Alexis MD - 10/24/2024 9:36 AM EDT Associated Problem(s): Neck pain Most likely cervical spasm secondary to underlying DJD of the C-spine Recommend heat to affected area and do stretching exercises daily. Take meloxicam daily x 1 to 2 weeks and Tylenol twice daily as needed pain Take Flexeril nightly + Tylenol x 1 week Recommended to go to acupuncture clinic and reconsult as needed if symptoms do not improve within 2to 3 weeks, may refer to PT documented in this encounter Plan of Treatment Upcoming Encounters Date Type Department Care Team (Late st Contact Info) Description 01/23/2025 10:15 AM EDT Office Visit [facility] [address] [place], [place] [phone] Elizabeth Alexis MD [address] [place] [phone] documented as of this encounter Procedures Procedure Name Priority Date/Time Associated Diagnosis Comments POCT GLYCATED HEMOGLOBIN, TOTAL Routine 10/24/2024 9:04 AM EDT Type 2 diabetes mellitus without complication, without long-term current use of insulin ([facility]) POCT GLUCOSE Routine 10/24/2024 9:03 AM EDT Type 2 diabetes mellitus without complication, without long-term current use of insulin ([facility]) documented in this encounter Results * (ABNORMAL) POCT HGB A1C (10/24/2024 9:04 AM EDT) Pathologist [facility] Hemoglobin A1C 7.7(A) 4.0 - 6.0 % QC Media Lot # [id number] Lot# Expiration Date Blood 10/24/2024 9:04 AM EDT Elizabeth Alexis MD POINT OF CARE TEST ENTER /EDIT ORDERABLES Final Result * (ABNORMAL) POCT Glucose (10/24/2024 9:03 AM EDT) Glucose Blood, POC 207(A) 60 - 200 mg/dL QC Media Lot # [id number] Lot# Expiration Date Blood Capillary blood specimen / Unknown 10/24/2024 9:03 AM EDT Elizabeth Alexis MD POINT OF CARE TEST ENTER /EDIT ORDERABLES Final Result documented in this encounter Visit Diagnoses Diagnosis Neck pain- Primary Cervicalgia Type 2 diabetes mellitus without complication, without long-term current use of insulin ([facility]) Moderate persistent asthma without complication documented in this encounter Care Teams Radio Electronics Officer Relationship Specialty Start Date End Date Elizabeth Alexis MD [address] [place] [id number] PCP - General Family Medicine 04/26/16 documented as of this encounter
--- OUTSIDE RECORDS SUMMARY | 2024-10-29 09:24 | XMS_ITS | Encounter Summary ---
Author Organization [employer] Address [address] [facility] [address] [place] [address] Care Team Providers Care Continuous Process Tanner Rotary Drum Name Role Phone Elizabeth Alexis MD Primary Care Provider + Encounter Details Date Type Department Care Team (Latest Contact Info) Description 10/24/2024 Travel Social History Tobacco Use Types Packs/Day [...] Description 01/23/2025 10:15 AM EDT Office Visit [facility] MEDICINE [address] [place] [address] Elizabeth Alexis MD [address] [place], [place] [phone] documented as of this encounter Visit Diagnoses Not on filedocumented in this encounter Care Teams Continuous Process Tanner Rotary Drum Relationship Specialty Start Date End Date Elizabeth Alexis MD [address] [place] [phone] PCP - General Family Medicine 04/26/16 documented as of this encounter
--- OUTSIDE RECORDS SUMMARY | 2024-10-29 09:24 | XMS_ITS | Encounter Summary ---
Author Organization [employer] Address [address] [place] [address] [address]t [place] [address] Care Team Providers Care Hospital Pharmacist Name Role Phone Elizabeth Alexis MD Primary Care Provider + Encounter Details Date Type Department Care Team (Late Contact Info) Description 12/28/2022 Abstract [facility] MEDICINE [address] [place], [place] [phone] Elizabeth Alexis MD [address] [place], [place] [phone] Social History Tobacco Use Types Packs/Day Years [...] Upcoming Encounters Date Type Department Care Team ([facility] Contact Info) Description 01/23/2025 10:15 AM EDT Office Visit [facility] MEDICINE [address], [place] [phone] Elizabeth Alexis MD [address] [place] [phone] documented as of this encounter Visit Diagnoses Not on filedocumented in this encounter Care Teams Hospital Pharmacist Relationship Specialty Start Date End Date Elizabeth Alexis MD [address] [place] [phone] PCP - General Family Medicine 04/26/16 documented as of this encounter
--- OUTSIDE RECORDS SUMMARY | 2024-10-29 09:24 | XMS_ITS | Clinical Summary ---
Author Organization [facility] Address [address] [place] [address] Care Team Providers Care Youth Worker Name Role Phone Adelaide Farooq MD Primary Care Provider Un available Allergies Active Allergy Reactions Severity Noted Date Comments Penicillin V Potassium Rash/Dermatitis 03/19/20 08 Medications Medication Sig Dispensed Refills Start Date End Date Status Aspirin 81 MG TABSIndications:Diabe murray mellitus type II,Routine general medical examination at a health care facility,Depression,H igh cholesterol 1 TABLET DAILY 30 Tab 1 10/30/2009 Active Blood Glucose Monitoring Suppl (FREESTYLE LITE) DEVIIndications:Diabe murray mellitus type II Test bs three times daily 1 Device 0 07/06/2010 Active FreeStyle Lancets MISCIndications:Diabe murray mellitus type II Test bs three times daily 100 Each 5 07/06/2010 Active clotrimazole (LOTRIMIN) 1 % cream Apply topically. Once a day to both feet 30 g 0 04/19/2011 Active sumatriptan (IMITREX) 50 MG tabletIndications:Domingo mohit May repeat dose once after 2 hours, if needed. 30 Tab 1 09/14/2011 Active Blood Glucose Calibration (FREESTYLE CONTROL SOLUTION) LIQDIndications:Diabe murray mellitus type II 1 Each by Does not apply route every 30 days. 1 Each 3 05/17/2012 Active fluticasone (FLONASE) 50 MCG/ACT nasal sprayIndications:Diab etes mellitus type II,High cholesterol,Allergic rhinitis,Asthma,Eczem a 2 Sprays by Nasal route daily. 1 Bottle 3 11/28/2012 Active fluticasone-salmetero l (ADVAIR DISKUS) 250-50 MCG/DOSE diskus inhalerIndications:Di abetes mellitus type II,High cholesterol,Allergic rhinitis,Asthma,Eczem a Inhale 1 Puff into the lungs every 12 hours. 1 Inhaler 0 11/28/2012 Active triamcinolone (KENALOG) 0.5 % cream Apply to affected area BID 30 g 0 04/19/2013 Active diphenhydrAMINE (BENADRYL) 25 MG tablet Take 1 Tab by mouth every 8 hours as needed for Itching. 30 Tab 0 04/19/2013 Active duloxetine (CYMBALTA) 60 MG capsule Take 1 Cap by mouth daily. 30 Cap 11 02/05/2014 Active omeprazole (PRILOSEC) 20 MG capsule TAKE 1 CAP BY MOUTH DAILY. 30 Cap 5 03/22/2014 Active atorvastatin (LIPITOR) 40 MG tablet TAKE 1 TABLET BY MOUTH EVERY DAY 30 Tab 0 08/25/[address] vaginal cream [address] 1 GRAM VAGINALLY AT BEDTIME 30 g 3 03/25/2015 Active glipiZIDE (GLUCOTROL) 2.5 MG 24 hr tabletIndications:Nee d for prophylactic vaccination and inoculation against influenza,High cholesterol TAKE 1 TABLETS BY MOUTH EVERY MORNING AND 1 EVERY EVENING 270 Tab 1 03/31/2015 Active Cholecalciferol (VITAMIN D) 2000 UNITS Cap Take 1 Cap by mouth daily. 30 Cap 11 04/03/2015 Active ALBUTEROL SULFATE 108 (90 BASE) MCG/ACT Aero SolnIndications:High cholesterol,Allergic rhinitis,Asthma,Eczem a Inhale 2 Puffs into the lungs 4 times daily as needed for Cough or Wheezing. 1 Inhaler 5 07/23/2015 Active loratadine (CLARITIN) 10 MG tablet Take 1 Tab by mouth daily. 30 Tab 5 12/31/2015 Active lorazepam (ATIVAN) 0.5 MG tablet Take 1 Tab by mouth See Admin Instructions. Take one tab one hour prior to take off Landing and may repeat x one in flight 6 Tab 0 12/31/2015 Active mupirocin (BACTROBAN) 2 % ointment Apply to wound daily 22 g 0 04/04/2016 Active metformin (GLUCOPHAGE) 1000 MG tabletIndications:Typ e 2 diabetes mellitus with other diabetic ophthalmic complication (HCC) TAKE 1 TABLET BY MOUTH TWICE A DAY WITH MEALS 180 Tab 1 06/23/2016 Active lisinopril (PRINIVIL,ZESTRIL) 5 MG tablet TAKE 1 TAB BY MOUTH DAILY. 30 Tab 1 06/27/2016 Active Active Problems Patient Care Coordination No te Formatting of this note is d ifferent from the original. Checking Your Blood Sugars Please check your blood sugars every day. Please check your sugars at the following times of day: before breakfast, after lunch and after dinner Your Blood Sugar Goals Pre Meal: 90-130 2 hours after meals: 110-160 Bedtime: 110-150 Use the Results ?? Bring your glucometer to every appointment ?? Write your fingerstick blood sugars down on a log sheet or record book. Bring them to your appointment ?? Look for patterns in the numbers. The results help you and your provider make decisions about your diabetes treatment plan. Your Results and your Goals Your Result / Date of Completion Your Goal / How Often to Assess Component Value Date HGBA1C 7.5 11/16/2011 Less than 7%--- 2-4 times per year BP Readings from Last 1 Encounters: 11/22/11 126/74 Less than 130/80--- once per year Component Value Date LDL 159 11/16/2011 LDL less than 100--- once per year Component Value Date MALBUR 9.8 05/24/2011 Less than 30--- once per year Wt Readings from Last 1 Encounters: 11/22/11 166 lb 4.8 oz (75.433 kg) Your goal weight by next visit: 160 --- reassess 2-4 times a year Health Maintenance Due Topic Date Due ? ? Diabetes: Annual Care Plan 1977 ? ? Mammogram Age 50+ 2009 ? ? Baseline Health Exam 40-64 05/20/2010 ? ? Diabetes: Annual Eye Exam 08/02/2011 Your Action Plan Check blood glucose as directed and write down all results. Contact me if you experience any barriers to care such as inability to purchase your medication, difficulty getting to your appointments or difficulty understanding your care plan When to Call your Healthcare Provider If your blood sugar falls below 70 and you do not know why or you become unconscious If you are sick and unable to take liquids because or nausea or vomiting If you have a fever over 101 If your blood sugar is 300 or higher on greater than 3 separate occasions during the same week If you are just unsure what to do Educational Resources [place] [employer] (www.diabetes.org) Centers for Disease Control and Prevention (www.cdc.gov/diabetes) This care plan was created in collaboration with Tawnya Velazquez on 11/22/2011 Problem Noted Date HSV (herpes simplex virus) anogenital in fection 07/25/2014 Type II or unspecified type diabetes mellitus with ophthalmic manifestations, uncontrolled 09/09/2013 Overview: NS eye exam 10/04/12. A1C 7.3 on 04/25/13. 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 And she is off the medication since High cholesterol 03/19/2008 Renal stone 03/19/2008 Overview: Patient had a procedure to destroy a stone in her L kidney Asthma 03/19/2008 Resolved Problems Problem Noted Date Resolved Date Lumbosacral spondylosis without myelopathy 11/1311/13/2012 HTN (hypertension) 03/19/2008 06/09/2009 Head ache 03/19/2008 06/09/2009 Immunizations Name Administration Dates Next Due Influenza (> 6 Months) 03/26/2013,04/19/2011,,06/11/2008 Tdap 03/19/2008 Family History Medical History Relation Name Comments Blindness Negative Hx Cataract Negative Hx Glaucoma Negative Hx Macular Degeneration Negative Hx Strabismus Negative Hx Relation Name Status Comments Brother 1 [...] Assigned at Date Recorded Not on file Last Filed Vital Signs Vital Sign Reading Time Taken Comments Blood Pressure 120/80 04/04/2016 10:29 AM EDT Pulse 60 04/04/2016 10:29 AM EDT Temperature 36.1 ??C (97 ??F) 04/04/2016 10:29 AM EDT Respiratory Rate 12 04/04/2016 10:29 AM EDT Oxygen Saturation 96% 12/31/2015 4:12 PM EDT Inhaled Oxygen Concentration - - Weight 69.4 kg (153 lb) 04/04/2016 10:29 AM EDT Height 170.2 cm (5' 7 ) 04/04/2016 10:29 AM EDT Body Mass Index 23.96 04/04/2016 10:29 AM EDT Plan of Treatment Health Maintenance Due Date Last Done Comments Covid-19 Vaccine (#1) 1960 TOBACCO CHECK/ADVISE 1977 SHINGLES VACCINE (1 of 2) 2009 DIABETES: ANNUAL FOOT EXAM 03/26/201403/26, 11/15/2011, 10/29/2010, Additional history exists MAMMOGRAM 03/29/2014 03/29/2013, 11/08, 03/19/2008 DIABETES: BLOOD SUGAR CONTRO L TEST (HGBA1C) 12/11/2015 09/10/2015, 03/31/2015, 09/29/2014, Additional history exists DEPRESSION SCREEN 09/09/2016 09/10/2015 DIABETES/HEART DISEASE: JOEY AL CHOLESTEROL (LDL) 09/09/2016 09/10/2015, 09/29/2014, 03/11/2014, Additional history exists DIABETES: ANNUAL URINE PROTE IN TEST (MICROALBUMIN) 09/09/2016 09/10/2015, 09/29/2014, 03/11/2014, Additional history exists DIABETES: ANNUAL EYE EXAM 02/16/20182016, 02/16/2017 (External Completion), 01/05/2015, Additional history exists DTAP/TDAP/TD (2 - Td or Tdap) 03/19/2018 03/19/2008 COLON CANCER SCREENING 12/18/2019 12/17/2009 BONE DENSITY SCREENING 02/05/2024 PNEUMOCOCCAL VACCINE (1 - PCV) 02/05/2024 BMI CHECK/ADVISE 07/10/2024 08/20/2013 INFLUENZA (Season Ended) 2025 013, 04/19/2011, 04/08/2009, Additional history exists HEPATITIS C SCREENING Completed 07/26/2014, 013 Care Teams Youth Worker Relationship Specialty Start Date End Date Adelaide Farooq MD PCP - General Internal Medicine 04/14/16
--- OUTSIDE RECORDS SUMMARY | 2024-10-29 09:24 | XMS_ITS | Encounter Summary ---
Author Organization [facility] Address [address] [place] [address] Care Team Providers Care Human Resource Officer Name Role Phone Willis Garcia MD Primary Care Provider Adelaide Farooq MD Primary Care Provider Un available Reason for Visit * Reason Comments Encounter Details Date Type Department Care Team Description 11/02/2015 Telephone Adult Medicine - [address] [address] Randolph Barba PA-C [address] [place] [phone] Social History Tobacco Use Types Packs/Day Years Used Date Smoking Tobacco: Former Cigarettes Q uit: 07/10/1992 Smokeless Tobacco: Never Alcohol Use Standard Drinks/Week Comments No 0 (1 standard drink = 0.6 oz pur e alcohol) Sex Assigned at Date Recorded Not on file documented as of this encounter Miscellaneous Notes * Telephone Encounter - Randolph Barba PA-C - 11/02/2015 7:13 PM EDT Called and spoke to pt regarding results of US. Stone not in a location likely to cause bilateral flank pain. Recommended follow-up with PCP team Patient expressed verbal understanding and consents to the plan as outlined. Telephone Information: Cellular Phone Not on file. documented in this encounter Plan of Treatment Not on file documented as of this encounter Visit Diagnoses Not on filedocumented in this encounter Care Teams Human Resource Officer Relationship Specialty Start Date End Date Willis Garcia MD [address] [place] [phone] PCP - General Internal Medicine 06/29/15 04/13/16 Adelaide Farooq MD [address] [place] [phone] PCP - General Internal Medicine 04/14/16 documented as of this encounter
--- OUTSIDE RECORDS SUMMARY | 2024-10-29 09:24 | XMS_ITS | Encounter Summary ---
Author Organization [facility] Address [address] [place] [address] Care Team Providers Care Diamond Grinder Name Role Phone Name, Oscar GRAY Primary Care Provider Willis Molina MD Primary Care Provider [phone] Adelaide Farooq MD Primary Care Provider Un available Encounter Details Date Type Department Care Team Description 11/25/2011 Release of Information Medical Records [address] [place] [id number] Abstract, Provider Social History Tobacco Use Types [...] on filedocumented in this encounter Care Teams Diamond Grinder Relationship Specialty Start Date End Date Name, MD Oscar PCP - General 03/07/06 06/28/15 Willis Garcia MD [address] [place] [id number] PCP - General Internal Medicine 06/29/15 04/13/16 Adelaide Farooq MD [address] [place] [phone] PCP - General Internal Medicine 04/14/16 documented as of this encounter
--- OUTSIDE RECORDS SUMMARY | 2024-10-29 09:24 | XMS_ITS | Encounter Summary ---
Author Organization [employer] Address [address] [place] [address] [address] [place] [address] Care Team Providers Care Manager Transit Name Role Phone Elizabeth Alexis MD Primary Care Provider + Encounter Details Date Type Department Care Team (Late Contact Info) Description 04/07/2023 Orders Only [facility] MEDICINE [address] [place] [address] [phone] Ariadne Pickard MD [address] [place] [address] [phone] Social History Tobacco Use Types Packs/Day Years [...] Department Care Team (Late Contact Info) Description 01/23/2025 10:15 AM EDT Office Visit [facility] MEDICINE [address] [place] [address] [phone] Elizabeth Alexis MD [address] [place] [address] [phone] documented as of this encounter Visit Diagnoses Not on filedocumented in this encounter Care Teams Manager Transit Relationship Specialty Start Date End Date Elizabeth Alexis MD [address] [place] [address] PCP - General Family Medicine 04/26/16 documented as of this encounter
[2024-10-29 12:18] LABS: Free T4 (Free Thyroxine) 0.89 ng/dL (0.71-1.85); Thyroid Stimulating Hormone 1.53 uIU/mL (0.32-4.0)
[2024-10-29 12:29] LABS: T4 Thyroxine 6.9 ug/dL (4.5-12.0)
[2024-10-30 04:29] LABS: Triiodothyronine T3 Total 89 ng/dL (76-181)
== END 2024-10-29 08:57 | disposition home or self-care (01) ==
LOC: HO.HHCL 08:56
PROVIDERS: Visit Provider Internal Medicine
DX: E04.1 Nontoxic single thyroid nodule (principal)
CPT/HCPCS: 36415; 84436; 84439; 84443; 84480; 84481

== ENCOUNTER 2025-01-23 10:42 | Outpatient (REF) | payer OTHER, SELFPAY ==
--- NOTE | ~2025-01-23 | XR_ITS ---
EXAMINATION: XR CERVICAL SPINE CLINICAL INFORMATION: chronic neck pain/OA COMPARISON: None available. TECHNIQUE: 3 views of the cervical spine were obtained. FINDINGS: There is no prevertebral soft tissue edema. C2-3: There are uncovertebral osteophytes C3-4 demonstrates subtle retrolisthesis and facet and uncovertebral osteophytes. C4-5 demonstrates mild disc space, endplate osteophytes, and facet and uncovertebral joint space narrowing with osteophytes. C5-6 demonstrates mild disc space narrowing and endplate and uncovertebral osteophytes with mild facet sclerosis. C6-7 demonstrates mild disc space narrowing with endplate and uncovertebral osteophytes and facet sclerosis with osteophytes. C7-T1 demonstrates subtle anterolisthesis and facet sclerosis with osteophytes. XR/XR cervical spine 3V IMPRESSION: Multilevel degenerative changes are most advanced between C4-5 and C6-7. Electronically signed by: Horacio Wheatley MD 01/23/2025 11:08 AM EDT
--- OUTSIDE RECORDS SUMMARY | 2025-01-23 11:19 | XMS_ITS | Encounter Summary ---
Author Organization [employer] Address [address] [facility] [address]t [place] [address] Care Team Providers Care Protohistorian Name Role Phone Elizabeth Alexis MD Primary Care Provider + Reason for Visit * Reason Onset Date Comments paperwork 09/07/2022 Encounter Details Date Type Department Care Team ([facility] st Contact Info) Description 09/07/2022 Telephone [facility] MEDICINE [address] [place], [place] [phone] Elizabeth Alexis MD [address] [place] [address] paperwork Social History Tobacco Use Types Packs/Day [...] require notes. Pt was a little confused, teletypewriter operator could not take in all the information needed. Please contact Facility at [phone] extension [phone] [place] documented in this encounter Plan of Treatment Not on file documented as of this encounter Visit Diagnoses Not on filedocumented in this encounter Care Teams Protohistorian Relationship Specialty Start Date End Date Elizabeth Alexis MD [address] [place] [phone] PCP - General Family Medicine 04/26/16 documented as of this encounter
--- OUTSIDE RECORDS SUMMARY | 2025-01-23 11:19 | XMS_ITS | Data Portability ---
Author Organization [facility] Address [address] [place] [address] Care Team Providers Care Flatbed Stitcher Name Role Phone [facility] Referring Provider [facility] PRIMARY [facility]ARE Referring Provider Assessment Encounter Date Assessment Date Assessment LastModified by Organization Details LastModified Time 10/03/2022 10/03/2022 I provided real -time medical direction via phone for this encounter, and was available for additional phone based assistance as needed. I have reviewed and agree with the Assessment and Plan as documented by the [employer]. Patient given the opportunity to ask questions. Patient called today for a visit regarding URI symptoms. Has a cough and a sore throat has not really taken anything [id number]. Denies fever chills nausea vomiting chest pain. Has sick contacts. Does ascribe to having some greenish sputum production. [employer] who is on scene with the patient [...] Orders benzonatate 100 mg capsule 2022 023 [facility]/Pharmacy #[id number], [address] [place], [address], 3 18:19:17 Robitussin Cough-Chest Congestion DM 5 mg-100 mg/5 mL oral liquid 2022 023 [facility]/Pharmacy #[id number], [address] [place], [address], 3 18:19:16 Patient TargetsNo targets recorded. Patient InstructionsNo instructions recorded. Reason for Referral None Reported. Medical Equipment None Reported. Allergies Allergen ID Allergen Name Allergen Category Reaction Reaction Severity Criticality Documentation Date Start Date Code Code System Note Provider Name and Address Organization Details Recorded Time 8303 Product containin g penicilli n (product) medicatio n Not available Not available Not available 05/07/2024 54094 8001 SNOMED Not Available [facility] - production [...] Pulse oximetry Respiratory rate Body weight Systolic And Diastolic Provider Name and Address Organization Details Last Updated DateTime 3 98.2 [degF] 95 /min 98 % 98 % 14 /min 10184.9 2 g 152/88 mm[Hg] Not Available [facility] - production 3 [...] 8869 Ana Medina MD Main - [facility] [address] [place] [phone] 10/03/2022 18:16:13 10/05/2022 09:47:47 Viral upper respiratory tract infection 653891576 J06.9 Health Concerns Section Related Observation LastModified by Organization Rebeka myers LastModified Time None Recorded Concern Status LastModified by Organization Details LastModified Time None Recorded Advance Directives Directive None Recorded Payers Insurance Date Sequence Insurance Name Policy Number Policy Barrett Covered Member ID Barrett Member ID Guarantor Name 09/03/2023 1 [facility] - DOS PRIOR TO 2022 - DUAL ELIGIBLE (MEDICARE REPLACEMENT/ADV ANTAGE - HMO) [facility] [id number] [facility] 09/03/2023 1 [facility] - DOS ON OR AFTER 2022 - DUAL ELIGIBLE - JAIL OPTIONS AND ONE CARE (MEDICARE REPLACEMENT/ADV ANTAGE - HMO) [facility] [id number] [facility] Notes Date Note Type Note Provider Name [...] .................. .................. .................. .................. .................. .................. ............... [employer] Note From Torsten Jorgensen: Pt complaing of [...] POC Flu, Covid and Strep all neg. [facility] contacted who prescibed 500mg Tylenol and 100mg Tessalon Perles 100mg PO. Pt was administered first dose of each as prescribed and [facility] called prescription into pts pharmacy with addition of robitussin. Pt was educated on S/SX that would indicate 911 or ED visit and was reminded to hydrate with water. [employer] Allergies: Penicillin .................. .................. .................. .................. .................. .................. .................. ............... Disposition: Fulfilled Ana Medina MD [address] [facility],[address], [place], [address], [employer] 10/03/2022 18:24:11 OBGyn Episode No OBEpisode recorded.
--- OUTSIDE RECORDS SUMMARY | 2025-01-23 11:19 | XMS_ITS | Clinical Summary ---
Author Organization [facility] Address [address] [place] [address] Care Team Providers Care Vessel Master Name Role Phone Adelaide Farooq MD Primary Care Provider Surgical History Surgery Date Site/Laterality Comments HYSTERECTOMY PROCEDURE: HISTORICAL HYSTERECTOMY SHOULDER SURGERY PROCEDURE: [place] UNLISTED PROCEDURE SHOULDER; COMMENT: nayana on the R Medical History Medical History Date Comments DM (diabetes mellitus) ([facility] V24, [facility] V28) DX:DM (diabetes mellitus) ([facility]) Hypercholesteremia [...] Daughter 1 Alive Daughter 2 Alive Father [place] at age 65 Mother Alive DM, HTN, [...] Panel) 08/08/2023 Colorectal Cancer Screening: Colonoscopy 08/08/2023 Diabetes: Annual Urine Albumin-Creatinine Ratio (uACR) 08/08/2023 Diabetes: Blood Sugar Control Test (HGBA1C) 08/08/2023 Hepatitis C Screening 08/08/2023 Osteoporosis Screening (Bone Density Screening) 08/08/2023 Social Influencers of Health Screening 08/08/2023 Falls Risk Assessment 02/05/2024 COVID-19 Vaccine ( season) 2024 Depression Screening 07/10/2024 Influenza Vaccine (#1) 2025 3, 04/19/2011, 04/08/2009, Additional history exists HIB [...] age to complete this topic Care Teams Vessel Master Relationship Specialty Start Date End Date Adelaide Farooq MD [address] [place] [address] PCP - General Internal Medicine 04/14/16
--- OUTSIDE RECORDS SUMMARY | 2025-01-23 11:19 | XMS_ITS | Patient Health Record ---
Author Organization [facility] Address [address] [place] [phone] Care Team Providers Care Visual Merchandising Assistant Name Role Phone Elizabeth Alexis MD Primary Care Provider Unavail able Maverick Garber Jr Unavailable Gamaliel Flores Unavailable Unavailable Allergies Allergen (clinical drug ingredient) Drug/Non Drug Allergy documented on EMR Reaction Allergy Type Onset Date Status Penicillin Unknown Drug Allergy Active Reason For Referral No Information Medications Medication SIG (Take, Route, Frequency, Duration) Notes Start Date End Date Status Dicyclomine HCl 10 MG 1 tablet Orally 2- 4 times a day Active Colyte with Flavor Packs 240 GM As directed Orally Over the specified time. for 1 day(s) Active Lipitor Active metFORMIN HCl Twice a day Acti ve Social History Tobacco Use: Social History Observation Description Date Details (start date - stop date) Never Smoker NA - NA Tobacco Use/Smoking Question Answer Notes Patient is a nonsmoker Alcohol Screen Question Answer Notes Did you have a drink contain ing alcohol in the past year? Yes How often did you have a dri nk containing alcohol in the past year? Monthly or less (1 point) How many drinks did you have on a typical day when you were drinking in the past year? 1 or 2 drinks (0 point) How often did you have 6 or more drinks on one occasion in the past year? Never (0 point) Points 1 Interpretation Negative Problems Problem Type SNOMED Code ICD Code Onset Dates Problem Status W/U Status Risk Notes Problem 18578070 Right lower quadrant pain (R10.31) Active confirmed Problem 886080567 Abnormal CT scan, colon (R93.3) Active confirmed Plan Of Treatment Future Test Test Name Order Date COLONOSCOPY 03/16/2017 Insurance Providers Payer Name Payer Address Payer Phone Subscriber Number Group Number Insured Name Patient Relationship to Insured Coverage Start Date Coverage End Date [employer] [address] [place] [phone] [id number] LARRY GAY Self - patient is the insured Medical (General) History Medical History History ICD Code diabetes mellitus II hypertension hypercholesterolemia fibromyalgia neck pain asthma Surgical History Surgery Date(Month/Year) right shoulder 1999 panniculectomy [facility]-Dr. Helms 07/2016 tubal ligation hysterectomy-total
--- OUTSIDE RECORDS SUMMARY | 2025-01-23 11:19 | XMS_ITS | Clinical Summary ---
Author Organization [facility] Address [address] [place] [address] Care Team Providers Care In Processing Instructor Name Role Phone Unavailable Primary Care Provider [...] Fecal DNA 02/05/2004 Flexible Sigmoidoscopy 02/05/2004 Imm-Pneumococcal 50+ (1 of 1 - PCV) 2009 Imm-Zoster, Recombinant (1 of 2) 2009 Imm-DTaP/Tdap/Td (2 - Td or Tdap) 03/19/2018 008 Bone Density Screening 02/05/2024 Falls Prevention 02/05/2024 [id number] (3 - 2023- season) 2024 021, 10/12/2020 Alcohol and Drug Screen 07/10/2024 Depression Annual Screen 07/10/2024 Imm-Influenza (#1) 2025 06/02/2021, 0 07/27/2016, 03/26/2013, Additional history exists Insurance [facility]
== END 2025-01-23 10:43 | disposition home or self-care (01) ==
LOC: HO.HHCX 10:42
PROVIDERS: PCP Internal Medicine; Visit Provider Internal Medicine
DX: M54.2 Cervicalgia (principal)
CPT/HCPCS: 72040

== ENCOUNTER → 2025-01-23 10:52 | Outpatient (BNV) | payer OTHER, SELFPAY | PROVIDERS: PCP Internal Medicine; Visit Provider Radiology Diagnostic Radiology | DX: M50.321 Other cervical disc degeneration at C4-C5 level (principal) | CPT/HCPCS: 72040 ==

== ENCOUNTER 2025-06-30 08:54 | Outpatient (REF) | payer OTHER, SELFPAY ==
--- OUTSIDE RECORDS SUMMARY | 2025-06-30 09:33 | XMS_ITS | Clinical Summary ---
Author Organization [employer] Address [address] [place] [address] [address] [place] [address] Care Team Providers Care Passenger Barge Master Name Role Phone Elizabeth Alexis MD Primary Care Provider + Allergies Active Allergy Reactions Criticality Noted Date Comments Ondansetron Rash Low 11/20/2024 Penicillins Rash,Unknown High 03/19/2008 Other reaction(s): Hives/Skin Rash Medications budesonide (Pulmicort Flexhaler) 180 MCG/ACT inhaler Inhale 1 puff every 12 (twelve) hours. 021 Active fluticasone (Flonase) 50 MCG/ACT nasal spray Administer 1-2 sprays into affected nostril(s) at bed time. 022 Active Blood Pressure Monitor kitIndications:Essenti al hypertension Use as directed 3x/week 1 kit 023 Active fexofenadine (Hortensia) 180 MG tabletIndications:Dysf unction of both eustachian tubes TAKE 1 TABLET BY MOUTH EVERY DAY 90 tablet 023 Active Blood Glucose Monitoring Suppl (ONE TOUCH ULTRA 2) w/Device kitIndications:Type 2 diabetes mellitus without complication, with long-term current use of insulin ([facility]) USE TO MONITOR BLOOD GLUCOSE TWICE DAILY 1 kit 023 Active OneTouch Ultra test stripIndications:Type 2 diabetes mellitus without complication, with long-term current use of insulin ([facility]) USE 1 STRIP TO MONITOR BLOOD GLUCOSE TWICE DAILY 100 strip 11 024 Active linaCLOtide (Linzess) 145 MCG capsuleIndications:Slo w transit constipation TAKE 1 CAPSULE BY MOUTH BEFORE BREAKFAST. DO NOT CRUSH OR CHEW. 90 capsule 3 024 Active albuterol 108 (90 Base) MCG/ACT inhalerIndications:Mod erate persistent asthma without complication TAKE 2 PUFFS BY MOUTH EVERY 4 TO 6 HOURS NEEDED 8.5 g 1 Active famotidine (Pepcid) 20 MG tabletIndications:Francheska roenteritis Take 1 tablet (20 mg) by mouth 2 times daily. 60 tablet 11 025 11/20 Active metoclopramide (Reglan) 10 MG tabletIndications:Francheska roenteritis Take 1 tablet (10 mg) by mouth Every 8-12 hours as needed (take only if nausea or vomiting) for up to 10 days. 12 tablet Active empagliflozin (Jardiance) 25 MG Take 1 tablet (25 mg) by mouth Once per day. 30 tablet 11 025 01/23 Active cyclobenzaprine (Flexeril) 10 MG tabletIndications:Neck pain Take 1 tablet (10 mg) by mouth at bedtime for 10 days. 10 tablet Active estradiol (Estrace) 0.1 MG/GM vaginal cream Insert 2 g into the vagina 3 (three) times a week. 42.5 g 3 025 01/24 Active docusate sodium (Colace) 100 MG capsule TAKE 1 CAPSULE (100 MG) BY MOUTH ONCE PER DAY. 90 capsule 1 Active lisinopril 40 MG tablet TAKE 1 TABLET BY MOUTH EVERY DAY 90 tablet 1 Active SITagliptin-metFORMIN (Janumet) 50-1000 MG tablet Take 1 tablet by mouth with breakfast and with evening meal. 60 tablet 11 025 06/18 Active Aspirin Low Dose 81 MG EC tabletIndications:At high risk for cardiovascular disease TAKE 1 TABLET BY MOUTH EVERY DAY 90 tablet 3 025 Active meloxicam (Mobic) 15 MG tablet TAKE 1 TABLET (15 MG) BY MOUTH ONCE PER DAY. 30 tablet 025 Active rosuvastatin (Crestor) 20 MG tabletIndications:Pure hypercholesterolemia Take 1 tablet (20 mg) by mouth Once per day. 90 tablet 1 025 06/27 Active rosuvastatin (Crestor) 20 MG tablet Take 1 tablet (20 mg) by mouth in the morning. 90 tablet 1 023 06/27 Discontinued( Reorder (will not trigger notification to Pharmacy)) aspirin (Aspirin Low Dose) 81 MG EC tabletIndications:At high risk for cardiovascular disease TAKE 1 TABLET BY MOUTH EVERY DAY 90 tablet 3 024 06/24 Discontinued metFORMIN (Glucophage) 500 MG tabletIndications:Type 2 diabetes mellitus without complication, without long-term current use of insulin (HCC) Take 3 tablets PO QAM, 2 tab PO QPM 150 tablet 3 025 06/18 Discontinued( Dose adjustment) lisinopril 40 MG tablet TAKE 1 TABLET BY MOUTH EVERY DAY 90 tablet 1 025 06/11 Discontinued meloxicam (Mobic) 15 MG tablet TAKE 1 TABLET (15 MG) BY MOUTH ONCE PER DAY. 30 tablet 025 06/25 Discontinued Active Problems Problem Noted Date Diagnosed Date Chronic left-sided low back pain with left-sided sciatica 06/18/2025 Nevus of left ankle 06/18/2025 Assessment & Plan (06/18/2025 4:33 PM EST): Dyschromic, refer to derm for biopsy. Weight loss 06/18/2025 Assessment & Plan (06/18/2025 4:39 PM EST): Lost 7 lb in the past 6mo, slow weight loss over 1y. Mammogram is up to date and normal, she's sp hysterectomy so she doesn't need PAP smear. Will refer to GI and order CT scan abdominal to ro intraabd malignancy Gastroenteritis 11/20/2024 Assessment & Plan (11/20/2024 4:10 PM EDT): Advised to continue drinking plenty of fluids small sips at a time and rest I will prescribe the patient famotidine and Reglan for the stomach upset If she still has not had a bowel movement, she may resume her regular medication for constipation If symptoms come back please contact us back or go to the emergency room Acute cystitis with hematuria 12/25/2023 Assessment & [...] further testing, and will be referred to rope maker that she is aware that no additional testing may be indicated and/or that other commercial tests may not be covered by insurance Left thyroid nodule 07/06/2023 Assessment & Plan (06/17/2024 5:05 PM EST): Reminded to do TFTs, may repeat thyroid US to monitor size, if not increased size, will discuss re stopping fu as she had already been seen by [facility] and discharged. Assessment & Plan (10/25/2023 [...] 09/29/2022 Chronic rhinitis 09/28/2022 Chronic constipation 09/28/2022 Assessment & Plan (06/18/2025 4:32 PM EST): Advised to use docusate daily Refer to GI, also due to weight loss. Vaginal dryness, menopausal 06/09/2022 Acute thoracic back [...] 11/29/2017 Essential hypertension 04/26/2016 Assessment & Plan (01/23/2025 3:11 PM EDT): Controlled. Compliant w/meds Continue lisinopril same dose Counseled re low salt diet/increase moderate physical activity. Check home BP BIW and prn CP/CONKLIN/HICKS Non smoking patient. Follow-up in 3 months with BMP Assessment & Plan (01/17/2024 4:05 PM EDT): [...] 04/26/2016 Neck pain 04/26/2016 Assessment & Plan (01/23/2025 3:21 PM EDT): Failed PT last year, acupuncture and meds, will refer to pain clinic Continue meloxicam, flexeril FU in 3mo Assessment & Plan (10/24/2024 9:36 AM EDT): [...] refer to PT Type 2 diabetes mellitus with hyperglycemia 04/09 Assessment & Plan (06/18/2025 4:31 PM EST): Uncontrolled, she didn't increase metformin dose as recommended last RV Switch to Janumet bid, due to metformin potentially making her loose weight. Counseled re more frequent low calorie/carb meals. Check fgstk 1x daily Encouraged physical activity as tolerated. FU in 6w. Assessment & Plan (01/23/2025 3:19 PM EDT): Fairly controlled. A1c has significantly improved. Continue on Jardiance and metformin, she is off Trulicity. Counseled re more frequent low calorie/carb meals. Check fgstk 1x daily Encouraged physical activity as tolerated. FU in 3 months. Assessment & Plan (10/24/2024 9:39 AM EDT): [...] Problem Noted Date Diagnosed Date Resolved Date Type 2 diabetes mellitus wit hout complication, without long-term current use of insulin 06/18/2025 06/18/2025 Grief 06/06/2022 06/09/2023 Perineal hematoma 06/06/2022 06/09/2023 Encounters Date Type Department Care Team Description 06/26/2025 Refill [facility] MEDICINE [address] [place] [phone] Elizabeth Alexis MD Pure hypercholesterolemia 06/25/2025 Telephone [facility] [employer] [address] [place] [phone] Elizabeth Alexis MD 06/25/2025 Refill [facility] MEDICINE [address] [place] [phone] Elizabeth Alexis MD 06/22/2025 Refill [facility] & PEDS [address] [place], [place] [phone] Elizabeth Alexis MD At high risk for cardiovascular disease 06/18/2025 11:15 AM EST Office Visit [facility]INE [address] [place] [phone] Elizabeth Alexis MD Type 2 diabetes mellitus without complication, without long-term current use of insulin (HCC) (Primary Dx); Chronic constipation; Type 2 diabetes mellitus with hyperglycemia, without long-term current use of insulin (HCC); Nevus of left ankle; Weight loss; Left thyroid nodule; Chronic left-sided low back pain with left-sided sciatica; Encounter for immunization; Left lower quadrant abdominal pain 06/18/2025 Travel 06/17/2025 Telephone [facility] MEDICINE [address] [place] [phone] Elizabeth Alexis MD chart prep 06/17/2025 Travel 06/13/2025 Telephone [facility] MEDICINE [address] [place] [phone] Elizabeth Alexis MD Call Back Request 06/11/2025 Patient Outreach [facility] [address] [place] [address] Elizabeth Alexis MD Pre-visit Planning ([facility] unable to reach LVM ) 06/11/2025 Refill [facility] MEDICINE [address] [place] [address] Elizabeth Alexis MD 05/28/2025 Refill [facility] MED[facility]INE [address] [place], [place] [phone] Elizabeth Alexis MD 04/27/2025 Refill [facility]INE [address] [place], [place] [phone] Semaj Yun MD 04/17/2025 Refill [facility] MED[facility]INE [address] [place], [place] [phone] Elizabeth Alexis MD Type 2 diabetes mellitus without complication, without long-term current use of insulin ([facility]) 04/11/2025 Telephone [facility]INE [address] [place], [place] [phone] Elizabeth Alexis MD oct recall from Last 3 Months Immunizations Immunization Administration Dates Next Due Hep B, adult 07/27/2016 Influenza injectable quadriv alent preservative free 06/02/2021,07/27/2016 Influenza, IIV3, injectable 03/26/2013,1 ,04/08/2009,2007 Moderna Covid-19 Vaccine 12+ 11/17/2020,10/13/19 21 Tdap 06/18/2025,03/19/2008 Family History Medical History Relation Name Comments Breast cancer Sister Relation Name Status Comments Sister Alive Social History Tobacco Use Types Packs/Day Years Used Date Smoking Tobacco: Never Passive Smoke Exposure: Never Smokeless Tobacco: Never Tobacco Cessation:Counseling Given: Not Answered Alcohol Use Standard Drinks/Week Comments Yes 0 (1 standard drink = 0.6 oz pur e alcohol) social Alcohol Answer Date Recorded How often do you have a drink containing alcohol ? 0 06/18/2025 Average Number of Drinks Not on file 025 How often do you have six or more drinks on one occasion? 0 06/18/2025 Depression Answer Date Recorded Patient Health Questionnaire-9 Score 0 11/20/2024 Patient Health Questionnaire-9 Score 0 11/20/2024 Last PHQ-9: Questionnaire Data Not on file 0 11/20/2024 Housing Stability Answer Date Recorded What is your housing situation today? I have tyshawn guy 11/20/[address] you li ve. Do you have problems with any of the following? None of the above 11/20/2024 Food Insecurity Answer Date Recorded Within the past 12 months, y ou worried that your food would run out before you got money to buy more: Never True 11/20/2024 Within the past 12 months,th e food you bought just didn't last and you didn't have enough money to get more: Never True Transportation Answer Date Recorded In the past 12 months, has l ack of transportation kept you from medical appts, meetings, work or from getting things needed for daily living? No 11/20/2024 Utilities Answer Date Recorded In the past 12 months, has t he electric, gas, oil or water company threatened to shut off services in your home? No 11/20/2024 Depression Answer Date Recorded Patient Health Questionnaire-2 Score 0 11/20/2024 Internet Access Answer Date Recorded Internet Access Q1 No 11/20/2024 Internet Access Q2 I do not want or need it 11/07 Comments No Sex and Gender Information Value Date Recorded Sex Assigned at Female 05/09/2022 10:24 AM EDT Legal Sex Female 10:24 AM EDT Gender Identity Female 05/09/2022 10:24 AM EDT Sexual Orientation Straight 05/09/2022 10 :24 AM EDT Last Filed Vital Signs Vital Sign Reading Time Taken Comments Blood Pressure 150/80 06/18/2025 11:46 AM EST Pulse 72 06/18/2025 11:24 AM EST Temperature 36.4 C (97.6 F) 06/18/2025 11:24 AM EST Respiratory Rate 16 06/18/2025 11:24 AM EST Oxygen Saturation 98% 06/18/2025 11:24 AM EST Inhaled Oxygen Concentration - - Weight 60.1 kg (132 lb 9.6 oz) 06/18/2025 11:24 AM EST Height 170.2 cm (5' 7 ) 06/18/2025 11:24 AM EST Body Mass Index 20.77 06/18/2025 11:24 AM EST Plan of Treatment Health Maintenance Due Date Last Done Comments CT Colonography 1959 FIT DNA/Cologuard 1959 FIT 1960 FOBT 1960 Sigmoidoscopy 1960 Hepatitis C Screening 1977 Pneumococcal Vaccine: 50+ Years (1 of 2 - PCV) 1978 RSV Patients and Patients Aged 60 years or older (1 - Risk 50-74 years 1-dose series) 2009 Zoster Vaccines (1 of 2) 2009 Hepatitis B Vaccines (2 of 3 - 19+ 3-dose series) 08/24/2016 07/27/2016 Eye Exam 01/22/2024 Diabetes: Urine Protein Screening 04/06/2024 04/06/2023, 08/31/2021, 06/16/2020, Additional history exists Lipid Panel 01/07/2025 01/08/2024, 03/11, 08/31/2021, Additional history exists COVID-19 Vaccine ( - season) 2025 11/17/2020, 10/12/2020 Influenza Vaccine (#1) 2025 , 07/27/2016, 03/26/2013, Additional history exists Mammogram 08/29/2025 08/29/2024, 11/2022, 06/07/2022, Additional history exists Diabetes: Hemoglobin A1C 09/16/2025 025, 01/23/2025, 10/24/2024, Additional history exists Alcohol/Substance Use Screening 10/24/2025 10/24/2024 Depression Screening 11/20/2025 11/20/2024, 11/21/19 25 SDOH Screening 11/20/2025 11/20/2024 Diabetes: Foot Exam 01/23/2026 01/23/2025, 01/23/2025, 01/23/2025, Additional history exists Tobacco Screening 06/18/2026 06/18/2025 Colonoscopy 06/07/2027 06/07/2017 Colorectal Cancer Screening 06/07/2027 DTaP/Tdap/Td Vaccines (3 - Td or Tdap) 06/18/2035 06/18/2025, 03/19/2008 Cervical Cancer Screening Discontinued HPV/Cotest Discontinued 12/01/2022, 12/06/2017 Pap Smear Discontinued 12/01/2022 HIB Vaccines Aged Out No longer eligi [...] on patient's age to complete this topic Goals Goal Patient Goal Type Associated Problems Recent Progress Patient-Stated? Author Help patients manage their type 2 diabetes Care Plan Help patients manage their type 2 diabetes No Kelsi Weiner Weekly blood pressure task Care Plan Weekly blood pressure task No Kelsi Weiner Help patients manage their type 2 diabetes Care Plan Help patients manage their type 2 diabetes No Kelsi Weiner Patient has chronic kidney disease Care Plan Patient has chronic kidney disease No Kelsi Weiner Weekly blood pressure task Care Plan Weekly blood pressure task No Kelsi Weiner Patient has chronic kidney disease Care Plan Patient has chronic kidney disease No Kelsi Weiner Weekly blood pressure task Care Plan Weekly blood pressure task No Melissa Perry Weekly blood pressure task Care Plan Weekly blood pressure task No Melissa Perry Patient has chronic kidney disease Care Plan Patient has chronic kidney disease No Melissa Perry Patient has chronic kidney disease Care Plan Patient has chronic kidney disease No Melissa Perry Weekly blood pressure task Care Plan Weekly blood pressure task No Steven Abreu MA Weekly blood pressure task Care Plan Weekly blood pressure task No Steven Abreu [place] Patient has chronic kidney disease Care Plan Patient has chronic kidney disease No Steven Abreu [place] Patient has chronic kidney disease Care Plan Patient has chronic kidney disease No Steven Abreu MA Weekly blood pressure task Care Plan Weekly blood pressure task No Celine Bennett MA Weekly blood pressure task Care Plan Weekly blood pressure task No Celine Bennett MA Patient has chronic kidney disease Care Plan Patient has chronic kidney disease No Celine Bennett [place] Patient has chronic kidney disease Care Plan Patient has chronic kidney disease No Celine Bennett MA Weekly blood pressure task Care Plan Weekly blood pressure task No Yvonne Moore FLORAL ARRANGER Weekly blood pressure task Care Plan Weekly blood pressure task No OscarRosita howardfer FLORAL ARRANGER Patient has chronic kidney disease Care Plan Patient has chronic kidney disease No OscarChantal howardnifer FLORAL ARRANGER Patient has chronic kidney disease Care Plan Patient has chronic kidney disease No OscarYvonne howard LPN Weekly blood pressure task Care Plan Weekly blood pressure task No Vazquezortiz, Providencia Weekly blood pressure task Care Plan Weekly blood pressure task No Vazquezortiz, Providencia Patient has chronic kidney disease Care Plan Patient has chronic kidney disease No Vazquezortiz, Providencia Patient has chronic kidney disease Care Plan Patient has chronic kidney disease No Vazquezortiz, Providencia Weekly blood pressure task Care Plan Weekly blood pressure task No MichaelaballBar beard Weekly blood pressure task Care Plan Weekly blood pressure task No Alexandrag Bar lopez Patient has chronic kidney disease Care Plan Patient has chronic kidney disease No Michaelabaradhaosantiag Bar lopez Patient has chronic kidney disease Care Plan Patient has chronic kidney disease No Bar Mathis Procedures Procedure Name Priority Date/Time Associated Diagnosis Comments POCT GLYCATED HEMOGLOBIN, TOTAL Routine 06/18/2025 11:27 AM EST Type 2 diabetes mellitus without complication, without long-term current use of insulin ([facility]) POCT GLUCOSE Routine 06/18/2025 11:26 AM EST Type 2 diabetes mellitus without complication, without long-term current use of insulin ([facility]) BI MAMMOGRAM SCREENING TOMOSYNTHESIS BILATERAL Routine 08/29/2024 9:45 AM EST LIPID PANEL WITH REFLEX TO DIRECT LDL Routine 01/08/2024 8:13 AM EDT Type 2 diabetes mellitus without complication, without long-term current use of insulin ([facility]) Essential hypertension ALBUMIN, RANDOM URINE W/CREATININE Routine 04/06/2023 9:32 AM EDT IMAGE-GUIDED PAP W/AGE BASED SCR,W/CT/NG/TRICH Routine 12/01/2022 11:03 AM EDT Cervical cancer screening Screening examination for venereal disease HM COLONOSCOPY Routine 06/07/2017 1:05 PM EST from Last 3 Months or Most Recently Relevant to Health Maintenance Results * (ABNORMAL) POCT Hgb A1c (06/18/2025 11:27 AM EST) Hemoglobin A1C 7.8(A) 4.0 - 5.7 % QC Media Lot # [id number] Lot# Expiration Date , Blood 06/18/2025 11:2 7 AM EST Elizabeth Alexis MD POINT OF CARE TEST ENTER /EDIT ORDERABLES Final Result * POCT Glucose (06/18/2025 11:26 AM EST) Glucose Blood, POC 134 60 - 200 mg/dL QC Media Lot # [id number] Lot# Expiration Date ,026 Blood Capillary blood specimen / Unknown 06/18/2025 11:26 AM EST Elizabeth Alexis MD POINT OF CARE TEST ENTER /EDIT ORDERABLES Final Result * BI Mammogram Screening Tomosynthesis Bilateral (08/29/2024 9:45 AM EST) Anatomical Region Laterality Modality Breast Bilateral Mammography 08/29/2024 9:45 AM EST Narrative 09/06/2024 11:01 AM EST [facility] [address] [place], [place] [address] Mammography Report Signed Patient: Tawnya Velazquez MR#: [id number] 9 : 1960 Acct:[id number] Age/Sex: 64 / F ADM Date: 08/29/24 Loc: MAMMO Attending Dr: Elizabeth Alexis MD Ordering Physician: Elizabeth Alexis MD Results: 1Ne gattomas Date of Service: 08/29/24 Follow Up: 1 Year From Orig inal Mammogram Procedure(s): MM tomosynthesis screening BI Accession Number(s): [id number] cc: Elizabeth Alexis MD EXAMINATION: MM SCREENING [...] by: Edita Chung DO 09/06/2024 10:58 AM [facility] Dictated By: Edita Chung DO Signed By: <Electronically signed by Edita Chung DO in OV> 09/06/24 1058 DD/ 0945 TD/TT: 08/29/24 1011 Cnc Manufacturing Engineer: Procedure Note Donotuseinterpreter, Image - 09/06/2024 [facility] [address] [place] [address] [place] [address] Mammography Report Signed Patient: Juan M Velazquez#: [id number] 9 : 1960cct:[id number] Age/Sex: 64 / FADM Date: 08/29/24 Loc: HO.MAMMO Attending Dr: Elizabeth Alexis MD Ordering Physician: Elizabeth Alexis MDResults: 1Ne gative Date of Service: 08/29/24Follow Up: 1 Year From Orig ina Mammogram Procedure(s): MM tomosynthesis screening BI Accession Number(s): [id number] cc: Elizabeth Alexis MD EXAMINATION: MM SCREENING [...] by: Edita Chung DO 09/06/2024 10:58 AM EST Dictated By: Edita Chung DO Signed By: <Electronically signed by Edita Chung DO in OV> 09/06/24 1058 DD/ 0945 TD/TT: 08/29/24 1011 Cnc Manufacturing Engineer: us Elizabeth Alexis MD IMG BI PROCEDURES Final Result * (ABNORMAL) Lipid Panel with Reflex to Direct LDL (01/08/2024 8:13 AM EDT) Triglycerides 107 <150 mg/dL [facility] Comment:Desirable Triglyceri de: less than 150 mg/dLBorderline High Triglyceride 150-199 mg/dLHigh Triglyceride: 200-499 mg/dLVery High Triglyceride: greater than or equal to 5OO mg/dL Cholesterol 212(H) <200 mg/dL [facility] Comment:Desirable Cholestero l: less than 200 mg/dLBorderline High Cholesterol: 200-239 mg/dLHigh Cholesterol: greater than 239 mg/dL LDL Cholesterol Calculated 139(H) <100 mg/dL [facility] Comment:Desirable LDL: less than 100 mg/dLNear Optimal/Above Optimal LDL: 110- 129 mg/dLBorderline High LDL: 130-159 mg/dLHigh LDL: 160-189 mg/dLVery High LDL: greater than or equal to 190 mg/dL HDL Cholesterol 52 >40 mg/dL [facility] Comment:Desirable HDL: great er than 40 mg/dL Note: This HDL assay may give artificially low results in patients with liver disease. Blood 01/08/2024 8:13 AM EDT 01/08/2024 11:39 AM EDT us Elizabeth Alexis MD LAB BLOOD ORDERABLES Fin al Result Performing Organization Address [facility] de Phone Number [facility] [address] [place] [phone] * Albumin, Random Urine W/Creatinine (04/06/2023 9:32 AM EDT) Creatinine, Urine 76.69 mg/dL [facility] Microalbumin Urine 16.0 mg/L [facility] Microalbum Creatinine Ratio Ur 20.8 <30 ug/mg cr [facility] Comment:Albumin/Creatinine R atio Reference Ranges: Normal: < 30 ug/mg creatinine Microalbuminuria: 30 - 300 ug/mg creatinineClinical Albuminuria: > 300 ug/mg creatinine 04/06/2023 9:32 AM EDT 04/06/2023 11:07 AM EDT us Ariadne Pickard MD LAB URINE ORDERABLES Final Resul t Performing Organization Address [facility] Co de Phone Number [facility] [address] [place] [phone] * Image-Guided Pap with Age-Based Screening??with CT/NG,??Trichomonas (12/01/2022 11:03 AM EDT) Comment [employer] Comment: This order for age-based cervical cancer and STI screening follows ACOG guidelines(PB 168, 140, AOX475). See individual assays for performing site location. Clinical Information: HYST FOR ? POSS CERV DYSP 30YR AGO [employer] LMP: NONE GIVEN [employer] Prev. PAP: NONE GIVEN [employer] Prev. BX: NONE GIVEN [employer] SOURCE: None given [employer] Statement Of Adequacy: [employer] Comment: Satisfactory for evaluation. Endocervical/transformation zone component absent. Interpretation/Re sult: Negative for intraepithelial lesion or malignancy. [employer] Comment: This Pap test has been evaluated with computer assisted technology. [email or web address] Generator Repairer: Joesph [employer] Comment: THERESA CT(ASCP) CT screening location: [place] [phone] (Always Message) [facility] [employer] Comment: EXPLANATORY NOTE: The Pap is a [...] HPV nRNA E6/E7 Not Detected Not Detected [employer] Comment: Methodology: Lead [employer] Developer-Mediated Amplification This assay detects E6/E7 viral messenger RNA (mRNA) from 14 high-risk HPV types (16,18,31,33,35,39,45,51,52,56,58,59,66,68). Cervical sources are required for HPV testing. If a vaginal source from a patient who has had a total hysterectomy with removal of cervix was submitted, please contact the testing laboratory for alternative testing options. For additional information, please refer to http://education.Raise Your Flag/faq/PNL821v7 (This link if provided for information/ educational purposes only.) Chlamydia trachomatis RNA, TMA, Urogenital NOT DETECTED NOT DETECTED [facility] [place] [facility] Neisseria gonorrhoeae RNA, TMA, Urogenital NOT DETECTED NOT DETECTED [facility] [place] [facility] Comment [facility] [place] [facility] Comment: The analytical performance characteristics of this assay, when used to test SurePath(TM) specimens have been determined by [facility]. The modifications have not been cleared or approved by the FDA. This assay has been validated pursuant to the CLIA regulations and is used for clinical purposes. For additional information, please refer to https://Mila.Raise Your Flag/faq/SQX819 (This link is being provided for information/ educational purposes only.) Trichomonas vaginalis, QL, TMA, PAP Vial NOT DETECTED NOT DETECTED [facility] [place] [facility] Comment: The analytical performance characteristics of this assay have been determined by [facility]. The modifications have not been cleared or approved by the FDA. This assay has been validated pursuant to the CLIA regulations and is used for clinical purposes. For additional information, please refer to http://Mila.Raise Your Flag/ faq/Trichomonastma (This link is being provided for information/ educational purposes only.) Pap Vial 12/01/2022 11:0 3 AM EDT 12/02/2022 7:58 AM EDT Jodee Rodriguez CNM LAB CYTOLOGY ORDERABLES F inal Result [facility] [address], [place] [address] [facility] [address] [place] [address] * Hm Colonoscopy (06/07/2017 1:05 PM EST) Colonoscopy Normal Normal Narrative Kajal Esparza - 06/07/2017 1:05 PM EST Recommended 10 years follow up Historical Provider MD HEALTH MAINTENANCE Edited Result - Final from Last 3 Months or Most Recently Relevant to Health Maintenance Additional Health Concerns Active Problems Noted Date Diagnosed Date Help patients manage their type 2 diabetes 06/11 Weekly blood pressure task 06/11/2025 Help patients manage their type 2 diabetes 06/11 Patient has chronic kidney disease 06/11/2025 Weekly blood pressure task 06/11/2025 Patient has chronic kidney disease 06/11/2025 Weekly blood pressure task 06/13/2025 Weekly blood pressure task 06/13/2025 Patient has chronic kidney disease 06/13/2025 Patient has chronic kidney disease 06/13/2025 Weekly blood pressure task 06/17/2025 Weekly blood pressure task 06/17/2025 Patient has chronic kidney disease 06/17/2025 Patient has chronic kidney disease 06/17/2025 Weekly blood pressure task 06/18/2025 Weekly blood pressure task 06/18/2025 Patient has chronic kidney disease 06/18/2025 Patient has chronic kidney disease 06/18/2025 Weekly blood pressure task 06/23/2025 Weekly blood pressure task 06/23/2025 Patient has chronic kidney disease 06/23/2025 Patient has chronic kidney disease 06/23/2025 Weekly blood pressure task 06/25/2025 Weekly blood pressure task 06/25/2025 Patient has chronic kidney disease 06/25/2025 Patient has chronic kidney disease 06/25/2025 Weekly blood pressure task 06/26/2025 Weekly blood pressure task 06/26/2025 Patient has chronic kidney disease 06/26/2025 Patient has chronic kidney disease 06/26/2025 Insurance [facility] [employer] OPTIONS (O D-SNP) Care Teams Passenger Barge Master Relationship Specialty Start Date End Date Elizabeth Alexis MD [address] [place] [address] PCP - General Family Medicine 04/26/16
--- OUTSIDE RECORDS SUMMARY | 2025-06-30 09:33 | XMS_ITS | Encounter Summary ---
Author Organization [employer] Address [address] [place] [address] 7 [place] [address] Care Team Providers Care Manager Contract Name Role Phone Elizabeth Lassiter MD Primary Care Provider + Reason for Referral * Imaging (Urgent) - Authorized Specialty Diagnoses / Procedures Referred By Contwinifred gonzalez Referred To Contact Radiology Diagnoses Weight loss Slow transit constipation Generalized abdominal pain Procedures CT Abdomen Pelvis w/ Contrast Elizabeth Lassiter MD [address] [place] [address] Phone: tel: fax: [address] [address] Phone: tel: fax: Referral ID Status Reason Start Date Expiration Date V isits Requested Visits Authorized [id number] Authorized 06/26/2025 06/26/2026 1 1 Encounter Details Date Type Department Care Team ([facility] Contact Info) Description 06/25/2025 Telephone [facility] [address] [place], [place] [phone] Elizabeth Lassiter MD [address] [place], [place] [phone] Social History Tobacco Use Types Packs/Day Years [...] as of this encounter Miscellaneous Notes * Addendum Note - Elizabeth Lassiter MD - 06/26/2025 3:07 PM ESTAddended by: ELIZABETH LASSITER on: 06/26/2025 03:07 PM Modules accepted: Orders * Telephone Encounter - Elizabeth Lassiter MD - 06/26/2025 3:06 PM EST Ordered, I put him urgent so it doesn't take 30-60 d....if she can get something done within 1, max2w is ok, Im looking for malignancy * Telephone Encounter - Bhaskar Isabel - 06/25/2025 11:50 AM EST Per [facility] protocol for Ct scan is Ct Abdomen & Pelvis With Contrast . Please advise! documented in this encounter Plan of Treatment Scheduled Orders Name Type Priority Associated Diagnoses Orde r Schedule CT Abdomen Pelvis w/ Contrast Imaging Urgent Weight loss Slow transit constipation Generalized abdominal pain Expected: 06/26/2025, Expires: 06/26/2026 documented as of this encounter Goals Goal Patient Goal Type Associated Problems [...] Care Plan Weekly blood pressure task No Colon Melissa Moore Patient has chronic kidney disease Care Plan [...] Weekly blood pressure task No Yvonne Moore LPN Weekly blood pressure task Care Plan Weekly blood pressure task No Oscar Yvonne SCOOPING MACHINE TENDER Patient has chronic kidney disease Care Plan Patient has chronic kidney disease No Yvonne Moore LPN Patient has chronic kidney disease Care Plan Patient has chronic kidney disease No Yvonne Moore LPN Weekly blood pressure task Care Plan Weekly blood pressure task No Vazquezortchristopher Providencia Weekly blood pressure task Care Plan Weekly blood pressure task No Vazquezortiz Providencia Patient has chronic kidney disease Care Plan Patient has chronic kidney disease No Vazquezortiz, Providencia Patient has chronic kidney disease Care Plan Patient has chronic kidney disease No Vazquezortiz, Providencia Weekly blood pressure task Care Plan Weekly blood pressure task No Bar Mathis Weekly blood pressure task Care Plan Weekly blood pressure task No Bar Mathis Patient has chronic kidney disease Care Plan Patient has chronic kidney disease No Bar Mathis Patient has chronic kidney disease Care Plan Patient has chronic kidney disease No Bar Mathis documented as of this encounter Visit Diagnoses Diagnosis Weight loss- Primary Loss of weight Slow transit constipation Generalized abdominal pain Abdominal pain, generalized documented in this encounter Additional Health Concerns Active Problems Noted Date [...] 06/26/2025 Patient has chronic kidney disease 06/26/2025 Assessment Noted Time PHQ-9 Depression Total Score: 0 11/21/19 25 2:56 PM EDT documented as of this encounter Care Teams Manager Contract Relationship Specialty Start Date End Date Elizabeth Lassiter MD [address] [place] [id number] PCP - General Family Medicine 04/26/16 documented as of this encounter
--- OUTSIDE RECORDS SUMMARY | 2025-06-30 09:33 | XMS_ITS | Encounter Summary ---
Author Organization [employer] Address [address] [facility] 7t [place] [address] Care Team Providers Care High Pressure Cleaner Name Role Phone Elizabeth Alexis MD Primary Care Provider + Reason for Visit * Reason Onset Date Comments Nurse Triage 11/18/2024 Encounter Details Date Type Department Care Team (Late st Contact Info) Description 11/18/2024 Telephone [facility] MEDICINE 230 [place], [place] [phone] Elizabeth Alexis MD [address] [place], [place] [phone] Nurse Triage Social History Tobacco Use Types Packs/Day Years Used Date Smoking Tobacco: Never Passive Smoke Exposure: Never Smokeless Tobacco: Never Alcohol Use Standard Drinks/Week Comments Yes 0 (1 standard drink = 0.6 oz pur e alcohol) social Depression Answer Date Recorded Patient Health Questionnaire-9 [...] encounter Miscellaneous Notes * Telephone Encounter - Chayo Souza RN - 11/18/2024 10:32 AM EDT Triage call with [facility] Cake Decorator ID [id number] Pt was seen in [facility] ED 11/14/24 for dx of gastroenteritis, report is on the chart. Pt reports no further vomiting, nausea, diarrhea. Pt only reports some weakness and lightheadedness. Pt reports restingand increasing liquid intake at this time. Pt will continue with this for the next few days. Neg for fever or abdominal pain. ASK apt with Dr. Catherine [id number] @ 315pm. Pt insurance is verified as active prior to booking. Protocol Used: Weakness (Generalized) and Fatigue (Adult) Protocol-Based Disposition: See in Office or Video Visit within 3 Days Video visit not offered Positive Triage Questions: * Mild weakness (e.g., does not interfere with ability to work, go to school, normal activities) and persists > 1 week * Fatigue (i.e., tires easily, decreased energy) and persists > 1 week * All higher-acuity triage questions were negative Care Advice Discussed: * Reassurance and Education - Mild Dehydration * Drink Fluids * Rest * Reasons To Call Back - Still feeling weak after 2 hours of rest and fluids - Passes out (faints) - You become worse * Telephone Encounter - Santhosh Stoll - 11/18/2024 9:35 AM EDT Patient calling to report ED visit on : Date: 11/14/24 Hospital: [facility] ED Seen for: food poisoning Symptomatic Yes *if yes message should go to Triage Pt feels week and disoriented Maori speaking documented in this encounter Plan of Treatment Not on file documented as of this encounter Visit Diagnoses Not on filedocumented in this encounter Care Teams High Pressure Cleaner Relationship Specialty Start Date End Date Elizabeth Alexis MD [address] [place] [phone] PCP - General Family Medicine 04/26/16 documented as of this encounter
--- OUTSIDE RECORDS SUMMARY | 2025-06-30 09:33 | XMS_ITS | Encounter Summary ---
Author Organization [employer] Address [address] [facility] 7t [place] [address] Care Team Providers Care Box Office Clerk Name Role Phone Elizabeth Alexis MD Primary Care Provider + Reason for Visit * Reason Comments Med Refill Encounter Details Date Type Department Care Team ([facility] st Contact Info) Description 04/17/2025 Refill [facility] MEDICINE [address] [place], [place] [phone] Elizabeth Alexis MD [address] [place], [place] [phone] Type 2 diabetes mellitus without complication, without long-term current use of insulin (HCC) Social History Tobacco Use Types Packs/Day Years [...] Diagnosis Type 2 diabetes mellitus without complication, without long-term current use of insulin (HCC) documented in this encounter Additional Health Concerns Assessment Noted Time PHQ-9 Depression Total Score: 0 11/21/19 25 2:56 PM EDT documented as of this encounter Care Teams Box Office Clerk Relationship Specialty Start Date End Date Elizabeth Alexis MD [address] [place] [phone] PCP - General Family Medicine 04/26/16 documented as of this encounter
--- OUTSIDE RECORDS SUMMARY | 2025-06-30 09:33 | XMS_ITS | Encounter Summary ---
Author Organization [employer] Address [address] [facility] 7t [place] [address] Care Team Providers Care Director Consumer Affairs Name Role Phone Elizabeth Alexis MD Primary Care Provider + Reason for Visit * Reason Comments Med Refill Encounter Details Date Type Department Care Team ([facility] st Contact Info) Description 06/25/2025 Refill [facility] MEDICINE 230 [place], [place] [phone] Elizabeth Alexis MD [address] [place], [place] [phone] Social History Tobacco Use Types Packs/Day Years [...] on file documented as of this encounter Goals Goal [...] Care Plan Weekly blood pressure task No Rosita MooreferLUIS MIGUEL Weekly blood pressure task Care Plan Weekly blood pressure task No Oscar Yvonne MINING ANALYST Patient has chronic kidney disease Care Plan Patient has chronic kidney disease No Yvonne Moore MINING ANALYST Patient has chronic kidney disease Care Plan [...] has chronic kidney disease No Vazquezortiz, Providencia documented as of this encounter Visit Diagnoses Not on filedocumented in this encounter Additional Health Concerns Active [...] 06/25/2025 Patient has chronic kidney disease 06/25/2025 Assessment Noted Time PHQ-9 Depression Total Score: 0 11/21/19 25 2:56 PM EDT documented as of this encounter Care Teams Director Consumer Affairs Relationship Specialty Start Date End Date Elizabeth Alexis MD [address] [place] [id number] PCP - General Family Medicine 04/26/16 documented as of this encounter
--- OUTSIDE RECORDS SUMMARY | 2025-06-30 09:33 | XMS_ITS | Encounter Summary ---
Author Organization [employer] Address 75 [facility] 7t [place] [address] Care Team Providers Care Concierge Name Role Phone Elizabeth Alexis MD Primary Care Provider + Reason for Visit * Reason Onset Date Comments Medication Question 06/26/2025 Encounter Details Date Type Department Care Team ([facility] st Contact Info) Description 06/26/2025 Refill [facility] MEDICINE [address] [place], [place] [phone] Elizabeth Alexis MD [address] [place], [place] [phone] Pure hypercholesterolemia Social History Tobacco Use Types Packs/Day Years [...] encounter Miscellaneous Notes * Telephone Encounter - Shaniqua Bess RN - 06/27/2025 9:35 AM EST Pt. Returned call. Pt. Reports she has not been picking up prescription as she is switching insurances to [place] and was not sure it would be covered. Advised pt. It will be covered and pt. Will pickup the prescription when sent * Telephone Encounter - Shaniqua Bess RN - 06/27/2025 9:23 AM EST Noted rosuvastatin 20mg on med list but not prescribed since Apr 2023 for 6 month supply. TC placedto pt. To inquire if there is any reason why she has not been taking, call went straight to , left message requesting call back. TC returned to [facility], they were unaware pt. Was supposed to be taking this and requesting a new script since last script is . They will f/up with pt. For compliance. * Telephone Encounter - Bar Aggie - 06/26/2025 4:50 PM EST Tc from donny from [facility] [employer] requesting a call back regarding the medication that the pt will be taking Med:(Atorvastatin) Contact donny at [phone] documented in this encounter Plan of Treatment Not on file documented as of this encounter Goals Goal Patient Goal Type Associated Problems Recent Progress Patient-Stated? Author Help patients manage their type 2 diabetes Care Plan Help patients manage their type 2 diabetes No Kelsi Weiner Weekly blood pressure task Care Plan Weekly blood pressure task No HusamKikiKelsi Help patients manage their type 2 diabetes Care Plan Help patients manage their type 2 diabetes No Husam Kelsi Patient has chronic kidney disease Care Plan Patient has chronic kidney disease No HusamKiki hatfieldilet Weekly blood pressure task Care Plan Weekly blood pressure task No HusamKikiKelsi Patient has chronic kidney disease Care Plan Patient has chronic kidney disease No HusamKikiKelsi Weekly blood pressure task Care Plan Weekly blood pressure task No Colon Moore, Melissa Weekly blood pressure task Care Plan Weekly blood pressure task No Colon Moore, Melissa Patient has chronic kidney disease Care Plan Patient has chronic kidney disease No Colon Moore, Melissa Patient has chronic kidney disease Care Plan Patient has chronic kidney disease No Colon Moore, Melissa Weekly blood pressure task Care Plan Weekly [...] blood pressure task No Yvonne Moore LPN Patient has chronic kidney disease Care Plan Patient has chronic kidney disease No Yvonne Moore LPN Patient has chronic kidney disease Care Plan Patient has chronic kidney disease No Yvonne Moore LPN Weekly blood pressure task Care Plan Weekly blood pressure task No Vazquezortchristopher, Providencvu Weekly blood pressure task Care Plan Weekly blood pressure task No Vazquezortiz Providencia Patient has chronic kidney disease Care Plan Patient has chronic kidney disease No Vazquezortiz, Providencia Patient has chronic kidney disease Care Plan Patient has chronic kidney disease No VaBhaskar castillo Weekly blood pressure task Care Plan Weekly blood pressure task No Bar Mathis Weekly blood pressure task Care Plan Weekly blood pressure task No MichaelabaBar rolle Patient has chronic kidney disease Care Plan Patient has chronic kidney disease No Bar Mathis Patient has chronic kidney disease Care Plan Patient has chronic kidney disease No Bar Mathis documented as of this encounter Visit Diagnoses Diagnosis Pure hypercholesterolemia documented in this encounter Additional Health Concerns [...] documented as of this encounter Care Teams Concierge Relationship Specialty Start Date End Date Elizabeth Alexis MD [address] [place] [address] PCP - General Family Medicine 04/26/16 documented as of this encounter
--- OUTSIDE RECORDS SUMMARY | 2025-06-30 09:33 | XMS_ITS | Encounter Summary ---
Author Organization [employer] Address [address] [facility] 7t [place] [address] Care Team Providers Care Customs Entry Writer Name Role Phone Elizabeth Alexis MD Primary Care Provider + Encounter Details Date Type Department Care Team (Late st Contact Info) Description 08/02/2023 Abstract [facility] MEDICINE [address] [place], [place] [phone] Elizabeth Alexis MD 230 [place], [place] [phone] Social History Tobacco Use Types Packs/Day Years [...] on filedocumented in this encounter Care Teams Customs Entry Writer Relationship Specialty Start Date End Date Elizabeth Alexis MD [address] [place] [address] PCP - General Family Medicine 04/26/16 documented as of this encounter
--- OUTSIDE RECORDS SUMMARY | 2025-06-30 09:34 | XMS_ITS | Encounter Summary ---
Author Organization [employer] Address [address] [facility] 7t [place] [address] Care Team Providers Care Speeder Machine Operator Name Role Phone Elizabeth Alexis MD Primary Care Provider + Encounter Details Date Type Department Care Team (Late st Contact Info) Description 10/19/2022 Orders Only [facility] MEDICINE [address] [place] [address] [phone] Elizabeth Alexis MD [address] [place], [place] [phone] Essential hypertension Social History Tobacco Use Types [...] hypertension documented in this encounter Care Teams Speeder Machine Operator Relationship Specialty Start Date End Date Elizabeth Alexis MD [address] [place] [address] PCP - General Family Medicine 04/26/16 documented as of this encounter
--- OUTSIDE RECORDS SUMMARY | 2025-06-30 09:34 | XMS_ITS | Encounter Summary ---
Author Organization [employer] Address [address] [facility] 7t [place] [address] Care Team Providers Care Chemical Plant Operator Name Role Phone Elizabeth Alexis MD Primary Care Provider + Reason for Visit * Reason Comments Med Refill Encounter Details Date Type Department Care Team ([facility] st Contact Info) Description 05/05/[address] [facility] MEDICINE [address] [place], [place] [phone] Elizabeth Alexis MD [address] [place], [place] [phone] Social History Tobacco Use Types Packs/Day Years [...] on filedocumented in this encounter Care Teams Chemical Plant Operator Relationship Specialty Start Date End Date Elizabeth Alexis MD [address] [place] [id number] PCP - General Family Medicine 04/26/16 documented as of this encounter
--- OUTSIDE RECORDS SUMMARY | 2025-06-30 09:34 | XMS_ITS | Encounter Summary ---
Author Organization [employer] Address [address] [place] [address] 7t [place] [address] Care Team Providers Care Ludlow Machine Operator Name Role Phone Elizabeth Alexis MD Primary Care Provider + Encounter Details Date Type Department Care Team (Late st Contact Info) Description 12/28/2022 Abstract [facility] MEDICINE 230 [place], [place] [phone] Elizabeth Alexis MD [address] [place], [place] [phone] Social History Tobacco Use Types Packs/Day Years [...] on filedocumented in this encounter Care Teams Ludlow Machine Operator Relationship Specialty Start Date End Date Elizabeth Alexis MD [address] [place], [place] [phone] PCP - General Family Medicine 04/26/16 documented as of this encounter
--- OUTSIDE RECORDS SUMMARY | 2025-06-30 09:34 | XMS_ITS | Encounter Summary ---
Author Organization [employer] Address [address] [place] [address] 7t [place] [address] Care Team Providers Care Radio Message Router Name Role Phone Elizabeth Alexis MD Primary Care Provider + Reason for Visit * Reason Comments Med Refill Encounter Details Date Type Department Care Team ([facility] st Contact Info) Description 03/14/2023 Refill [facility] MEDICINE 230 [place], [place] [phone] Elizabeth Alexis MD [address] [place], [place] [phone] Type 2 diabetes mellitus without complication, with long-term current use of insulin ([facility]) Social History Tobacco Use Types Packs/Day [...] complication, with long-term current use of insulin ([facility]) documented in this encounter Care Teams Radio Message Router Relationship Specialty Start Date End Date Elizabeth Alexis MD [address] [place], [place] [phone] PCP - General Family Medicine 04/26/16 documented as of this encounter
--- OUTSIDE RECORDS SUMMARY | 2025-06-30 09:34 | XMS_ITS | Clinical Summary ---
Author Organization [facility] Address [address] [place] [address] Care Team Providers Care Accounts Receivable Clerk Name Role Phone Adelaide Farooq MD Primary Care Provider Surgical History Surgery Date Site/Laterality Comments HYSTERECTOMY PROCEDURE: HISTORICAL HYSTERECTOMY SHOULDER SURGERY PROCEDURE: [place] UNLISTED PROCEDURE SHOULDER; COMMENT: nayana on the R Medical History Medical History Date Comments DM (diabetes mellitus) ([facility] V24, [facility] V28) DX:DM (diabetes mellitus) ([facility]) Hypercholesteremia [...] Daughter 1 Alive Daughter 2 Alive Father [place] at age 65 Mother Alive DM, HTN, derpre ssion Sister 1 Alive HTN Sister 2 Alive HTN Sister 3 Alive Son Alive Social History Tobacco Use Types Packs/Day Years Used Date Smoking Tobacco: Former Cigarettes 0 Q uit: 07/10/1992 Smokeless Tobacco: Never Alcohol [...] Last Done Comments Breast Cancer Screening 1959 Colorectal Cancer Screening: Colonoscopy 1959 Diabetes: Annual GFR (Glomerular Filtration Rate) 1959 Diabetes: Annual Foot Exam 1969 Diabetes: Annual Retina Eye Exam 1969 Pneumococcal Vaccine: 50+ Years (1 of 2 - PCV) 1978 RSV Immunization Adult Patients (1 - Risk 50-74 years 1-dose series) 2009 Zoster Vaccines (1 of 2) 2009 DTaP,Tdap,and Td Vaccines (2 - Td or Tdap) 03/19/2018 03/19/2008 Cholesterol Screening (Lipid Panel) 08/08/2023 Diabetes: Annual Urine Albumin-Creatinine Ratio (uACR) 08/08/2023 Diabetes: Blood Sugar Control Test (HGBA1C) 08/08/2023 Hepatitis C Screening 08/08/2023 Osteoporosis Screening (Bone Density Screening) 08/08/2023 Social Influencers of Health Screening 08/08/2023 Falls Risk Assessment 02/05/2024 Depression Screening 07/10/2024 COVID-19 Vaccine ( - season) 2025 Influenza Vaccine (#1) 2025 3, 04/19/2011, 04/08/2009, [...] age to complete this topic Care Teams Accounts Receivable Clerk Relationship Specialty Start Date End Date Adelaide Farooq MD [address] [place] [address] PCP - General Internal Medicine 04/14/16
--- OUTSIDE RECORDS SUMMARY | 2025-06-30 09:34 | XMS_ITS | Encounter Summary ---
Author Organization [employer] Address [address] [facility] [address]t [place] [address] Care Team Providers Care Buckle Strap Puncher Name Role Phone Elizabeth Alexis MD Primary Care Provider + Reason for Visit * Reason Onset Date Comments paperwork 09/07/2022 Encounter Details Date Type Department Care Team ([facility] st Contact Info) Description 09/07/2022 Telephone [facility] MEDICINE [address] [place], [place] [phone] Elizabeth Alexis MD [address] [place], [place] [phone] paperwork Social History Tobacco Use Types Packs/Day [...] require notes. Pt was a little confused, rewriter could not take in all the information needed. Please contact Facility at [phone] extension 194 [place] documented in this encounter Plan of Treatment Not on file documented as of this encounter Visit Diagnoses Not on filedocumented in this encounter Care Teams Buckle Strap Puncher Relationship Specialty Start Date End Date Elizabeth Alexis MD [address] [place] [phone] PCP - General Family Medicine 04/26/16 documented as of this encounter
--- OUTSIDE RECORDS SUMMARY | 2025-06-30 09:34 | XMS_ITS | Encounter Summary ---
Author Organization [employer] Address [address] [place] [address] 7[address] [place] [address] Care Team Providers Care Social Media Analyst Name Role Phone Elizabeth lAexis MD Primary Care Provider + Reason for Visit * Reason Comments Med Refill Encounter Details Date Type Department Care Team ([facility] st Contact Info) Description 01/01/2023 Refill [facility] MEDICINE [address] [place], [place] [phone] Elizabeth Alexis MD [address] [place], [place] [phone] Type 2 diabetes mellitus without complication, with long-term current use of insulin ([facility]) Social History Tobacco Use Types Packs/Day Years [...] complication, with long-term current use of insulin ([facility]) documented in this encounter Care Teams Social Media Analyst Relationship Specialty Start Date End Date Elizabeth Alexis MD [address] [place], [place] [phone] PCP - General Family Medicine 04/26/16 documented as of this encounter
--- OUTSIDE RECORDS SUMMARY | 2025-06-30 09:34 | XMS_ITS | Encounter Summary ---
Author Organization [employer] Address [address] [facility] 7t [place] [address] Care Team Providers Care Mechanic Welder Name Role Phone Elizabeth Alexis MD Primary Care Provider + Encounter Details Date Type Department Care Team (Late st Contact Info) Description 12/28/2022 Abstract [facility] MEDICINE [address] [place], [place] [phone] Elizabeth Alexis MD [address] [place], [place] [phone] Social History Tobacco Use Types Packs/Day Years [...] on file documented as of this encounter Procedures Procedure Name Priority Date/Time Associated Diagnosis Comments HM COLONOSCOPY Routine 06/07/2017 1:05 PM EST documented in this encounter Results * Hm Colonoscopy (06/07/2017 1:05 PM EST) Colonoscopy Normal Normal Narrative Kajal Esparza - 06/07/2017 1:05 PM EST Recommended 10 years follow up us Historical Provider HEALTH MAINTENANCE Edited Result - Final documented in this encounter Visit Diagnoses Not on filedocumented in this encounter Care Teams Mechanic Welder Relationship Specialty Start Date End Date Elizabeth Alexis MD [address] [place] [phone] PCP - General Family Medicine 04/26/16 documented as of this encounter
--- OUTSIDE RECORDS SUMMARY | 2025-06-30 09:34 | XMS_ITS | Patient Health Record ---
Author Organization [facility] Address [address] [place] [id number] Care Team Providers Care Air Director Name Role Phone Elizabeth Alexis MD Primary Care Provider Unavail able Maverick Garber Jr Unavailable [phone] Gamaliel Flores Unavailable Unavailable Allergies Allergen (clinical drug ingredient) Drug/Non Drug Allergy documented on EMR Reaction Allergy Type Onset Date Status Penicillin Unknown Drug Allergy Active Reason For Referral No Information Medications Medication SIG (Take, Route, Frequency, Duration) Notes Start Date End Date Status Dicyclomine HCl 10 MG Capsule 1 tablet Orally 2-4 times a day Active Colyte with Flavor Packs 240 GM Solution Reconstituted As directed Orally Over the specified time.; Duration: 1 day(s) Active Lipitor Active metFORMIN HCl Twice a day Acti ve Social History Tobacco Use: Social History Observation Description Date Details (start date - stop date) Never Smoker NA - NA Social History Drugs/Alcohol: Social Info Question Answer Notes Alcohol Screen Did you have a drink containing alcohol in the past year? Yes How often did you have a drink containing alcohol in the past year? Monthly or less (1 point) How many drinks did you have on a typical day when you were drinking in the past year? 1 or 2 drinks (0 point) How often did you have 6 or more drinks on one occasion in the past year? Never (0 point) Points 1 Interpretation Negative Tobacco Use: Social Info Question Answer Notes Tobacco Use/Smoking Patient is a nonsmoker Additional Details Category Social Info Options Details Miscellaneous: Marital status: Occupation: unemployed Problems Problem Type SNOMED Code ICD Code Onset Dates Problem Status W/U Status Risk Notes Problem Right lower quadrant pain (588590987) Right lower quadrant pain (R10.31) Active confirmed Problem Computed tomography result abnormal (911345021) Abnormal CT scan, colon (R93.3) Active confirmed Plan Of Treatment Future Test Test Name Order Date COLONOSCOPY 03/16/2017 Insurance Providers Payer Name Payer Address Payer Phone Subscriber Number Group Number Insured Name Patient Relationship to Insured Coverage Start Date Coverage End Date [facility] [address] [place] [address] [id number] LARRY GAY Self - patient is the insured Medical (General) History Medical History History ICD Code diabetes mellitus II hypertension hypercholesterolemia fibromyalgia neck pain asthma Surgical History Surgery Date(Month/Year) right shoulder 1999 panniculectomy -[facility]-Dr. Helms 07/2016 tubal ligation hysterectomy-total
--- OUTSIDE RECORDS SUMMARY | 2025-06-30 09:34 | XMS_ITS | Encounter Summary ---
Author Organization [employer] Address [address] [place] [address] 7t [place] [address] Care Team Providers Care Bank Worker Name Role Phone Elizabeth Alexis MD Primary Care Provider + Reason for Visit * Reason Comments Med Refill Encounter Details Date Type Department Care Team ([facility] st Contact Info) Description 04/07/2023 Refill [facility] MEDICINE [address] [place], [place] [phone] Elizabeth Alexis MD [address] [place], [place] [phone] Type 2 diabetes mellitus without complication, with long-term current use of insulin ([facility]) Social History Tobacco Use Types Packs/Day Years [...] complication, with long-term current use of insulin ([facility]) documented in this encounter Care Teams Bank Worker Relationship Specialty Start Date End Date Elizabeth Alexis MD [address] [place], [place] [phone] PCP - General Family Medicine 04/26/16 documented as of this encounter
--- OUTSIDE RECORDS SUMMARY | 2025-06-30 09:34 | XMS_ITS | Encounter Summary ---
Author Organization [employer] Address [address] [facility] 7[address] [place] [address] Care Team Providers Care Fountain Attendant Name Role Phone Elizabeth Alexis MD Primary Care Provider + Encounter Details Date Type Department Care Team (Late st Contact Info) Description 04/07/2023 Orders Only [facility] MEDICINE [address] [place], [place] [phone] Ariadne Pickard MD [address] [place], [place] [phone] Social History Tobacco Use Types Packs/Day Years [...] on filedocumented in this encounter Care Teams Fountain Attendant Relationship Specialty Start Date End Date Elizabeth Alexis MD [address] [place], [place] [phone] PCP - General Family Medicine 04/26/16 documented as of this encounter
--- OUTSIDE RECORDS SUMMARY | 2025-06-30 09:34 | XMS_ITS | Encounter Summary ---
Author Organization [employer] Address [address] [facility] 7t [place] [address] Care Team Providers Care Jewel Hole Cornerer Name Role Phone Elizabeth Alexis MD Primary Care Provider + Reason for Visit * Reason Comments Med Refill Encounter Details Date Type Department Care Team ([facility] st Contact Info) Description 01/15/2025 Refill [facility] MEDICINE [address] [place], [place] [phone] Elizabeth Alexis MD [address] [place], [place] [phone] Type 2 diabetes mellitus without complication, without long-term current use of insulin ([facility]) Social History Tobacco Use Types Packs/Day [...] documented as of this encounter Care Teams Jewel Hole Cornerer Relationship Specialty Start Date End Date Elizabeth Alexis MD [address] [place] [phone] PCP - General Family Medicine 04/26/16 documented as of this encounter
[2025-06-30 11:36] LABS: Anion Gap 12 (12-20); Blood Urea Nitrogen 15 mg/dL (9-16); Calcium 9.7 mg/dL (8.4-10.2); Carbon Dioxide 27 mmol/L (22-29); Chloride 106 mmol/L (96-108); Cholesterol 257 mg/dL (<200); Estimated Glomerular Filt Rate > 60; HDL Cholesterol 64 mg/dL (>40); Potassium 4.3 mmol/L (3.3-5.1); Sodium 141 mmol/L (135-145); Triglycerides 103 mg/dL (<150)
[2025-06-30 11:51] LABS: Free T4 (Free Thyroxine) 0.94 ng/dL (0.71-1.85); Thyroid Stimulating Hormone 1.39 uIU/mL (0.32-4.0)
[2025-06-30 12:03] LABS: Microalbum/Creatinine Ratio Ur 16.1 ug/mg cr (<30)
[2025-06-30 12:54] LABS: Reflex LDLD? No
== END 2025-06-30 08:55 | disposition home or self-care (01) ==
LOC: HO.HHCL 08:54
PROVIDERS: PCP Internal Medicine; Visit Provider Internal Medicine
DX: E11.9 Type 2 diabetes mellitus without complications (principal); R63.4 Abnormal weight loss
CPT/HCPCS: 36415; 80048; 80061; 82043; 82570; 84436; 84439; 84443; 84480; 84481